=== PATIENT | female | born 1935 | race Native Hawaiian/Other Pacific Islander ===

== ENCOUNTER 2016-08-23 13:15 | Outpatient (CLI) | payer MEDICARE, MEDICAID | END 2016-08-23 13:16 | disposition home or self-care (01) | DX: N18.3 Chronic kidney disease, stage 3 (moderate) (principal); E11.9 Type 2 diabetes mellitus without complications ==

== ENCOUNTER 2019-05-04 12:19 | Outpatient (CLI) | payer MEDICARE, MEDICAID ==
[2019-05-04 19:00] LABS: CALCIUM 9.8 mg/dL (8.5-10.3)
[2019-05-04 19:10] LABS: HEMOGLOBIN A1C 0.66 g/dL; HEMOGLOBIN A1C % 6.5 % (4.6-6.2)
== END 2019-05-04 23:59 | disposition home or self-care (01) ==
LOC: LAB.N 12:19
PROVIDERS: ATTEND Nurse Practitioner Gerontology
DX: E11.22 Type 2 diabetes mellitus with diabetic chronic kidney disease (principal)
CPT/HCPCS: 36415; 80048; 83036

== ENCOUNTER 2019-08-17 12:59 | Emergency (ER) | payer MEDICARE, MEDICAID ==
[2019-08-17] MEDS ORDERED: ONDANSETRON ODT 4 MG TABLET TL STA (13:26)
--- NOTE | 2019-08-17 13:29 | ED Physician Documentation ---
PD HPI ABD PAIN - Stated complaint Stated Complaint: PARSON,ABD PX,VOMITING - Chief complaint Chief Complaint: Abd Pain - History obtained from History obtained from: Patient - History of Present Illness Timing - onset: Other (84-year-old woman with diabetes returned from [facility] via [facility] where she was there only for 2 hours about 2 weeks ago. She is had 6 days of illness marked by vomiting, abdominal pain, cough, no runny nose or sore throat. She thinks she has had fevers. Cough is minimally productive. She denies diarrhea.) Review of Systems Ten Systems: 10 systems reviewed and negative Constitutional: reports: Fever, Chills, Fatigue Nose: denies: Rhinorrhea / runny nose Throat: denies: Sore throat Cardiac: denies: Chest pain / pressure, Palpitations Respiratory: reports: Cough. denies: Dyspnea GI: reports: Abdominal Pain, Nausea, Vomiting. denies: Diarrhea PD PAST MEDICAL HISTORY - Past Medical History Cardiovascular: Hypertension Respiratory: None Endocrine/Autoimmune: Type 2 diabetes GI: None : None HEENT: None Psych: None Musculoskeletal: None Derm: None - Past Surgical History Past Surgical History: No Ortho: Carpal Tunnel surgery - Present Medications Home Medications: Ambulatory Orders Medication Instructions Recorded Confirmed Cyclobenzaprine [Flexeril] 10 mg PO TID PRN 12/29/12 01/28/14 Metformin HCl 500 mg PO DAILY 12/29/12 01/28/14 Nitrofurantoin [Macrobid] 100 mg PO BID #14 capsule 12/29/12 01/28/14 Tramadol HCl/Acetaminophen 1 - 2 each PO Q6-8H PRN #30 tablet 12/29/12 01/28/14 [Ultracet Tablet] Valsartan [Diovan] 80 mg PO DAILY 12/29/12 01/28/14 amLODIPine [Norvasc] 10 mg PO DAILY 12/29/12 01/28/14 atenoloL [Tenormin] 50 mg PO DAILY 12/29/12 01/28/14 Benzonatate [Tessalon Perle] 100 - 200 mg PO TID PRN #14 capsule 08/17/19 Ondansetron Odt [Zofran] 4 mg TL Q6H PRN #10 tablet 08/17/19 - Allergies Allergies/Adverse Reactions: Allergies Allergy/AdvReac Type Severity Reaction Status Date / Time No Known Drug Allergies Allergy Verified 08/17/19 13:06 - Social History Does the pt smoke?: No Smoking Status: Never smoker Does the pt drink ETOH?: Yes PD ED PE NORMAL - Vitals Vital signs reviewed: Yes - General General: Alert and oriented X 3, No acute distress - HEENT HEENT: PERRL, Pharynx benign - Neck Neck: Supple, no meningeal sign, No bony TTP - Cardiac Cardiac: RRR, No murmur - Respiratory Respiratory: No respiratory distress, Clear bilaterally - Abdomen Abdomen: Normal bowel sounds, Soft, Non tender - Back Back: No CVA TTP, No spinal TTP - Derm Derm: Normal color, Warm and dry - Extremities Extremities: No edema, No calf tenderness / cord - Neuro Neuro: Alert and oriented X 3, Normal speech Results - Vitals Vitals: Vital Signs - 24 hr 08/17/19 13:06 Temperature 36.5 C Heart Rate 58 L Respiratory 14 Rate Blood Pressure 135/85 H O2 Saturation 100 Oxygen O2 Source Room air - Labs Labs: Laboratory Tests 08/17/19 08/17/19 08/17/19 13:15 13:49 13:49 WBC 4.6 L RBC 4.53 Hgb 13.8 Hct 40.1 MCV 88.5 MCH 30.5 MCHC 34.4 RDW 11.1 L Plt Count 194 MPV 8.9 Neut # (Auto) 3.0 Lymph # (Auto) 1.1 L [place] # (Auto) 0.3 Eos # (Auto) 0.1 Baso # (Auto) 0.0 Absolute Nucleated RBC 0.00 Nucleated RBC % 0.0 Sodium 126 L Potassium 4.7 Chloride 90 L Carbon Dioxide 21 Anion Gap 15.0 H BUN 52 H Creatinine 1.5 H Estimated GFR (MDRD) 33 L Glucose 151 H Calcium 9.9 Total Bilirubin 1.4 H AST 23 ALT 14 Alkaline Phosphatase 45 Total Protein 8.6 H Albumin 4.6 Globulin 4.0 Albumin/Globulin Ratio 1.1 Lipase 99 H Influenza A (Rapid) Negative Influenza B (Rapid) Negative - Rads (name of study) 2v chest Radiology: EMP read contemporaneously (normal) PD MEDICAL DECISION MAKING - ED course ED course: 84-year-old woman presents with what seems like a viral syndrome, feeling better after meds. Labs show dehydration for which she was given 1 L of IV fluids. Departure - Departure Disposition: 01 Home, Self Care Clinical Impression: Viral syndrome, Cough Condition: Good Record reviewed to determine appropriate education?: Yes Instructions: ED Viral Syndrome Prescriptions: Benzonatate [Tessalon Perle] 100 - 200 mg PO TID PRN #14 capsule PRN Reason: Cough Ondansetron Odt [Zofran] 4 mg TL Q6H PRN #10 tablet PRN Reason: Nausea / Vomiting Comments: Your blood work shows evidence of moderate dehydration for which she received IV fluids. Drink plenty of fluids at home. Return for new or worsening symptoms. Follow-up with your doctor in 2 to 3 days for recheck., your chest x-ray is normal.
[2019-08-17 13:57] LABS: BASOPHILS % (AUTO) 0.7 %; EOSINOPHILS # (AUTO) 0.1 10^3/uL (0.0-0.7); EOSINOPHILS % (AUTO) 1.5 %; HGB - HEMOGLOBIN 13.8 g/dL (12.0-16.0); LYMPHOCYTES # (AUTO) 1.1 10^3/uL (1.5-3.5); LYMPHOCYTES % (AUTO) 24.5 %; MEAN CORPUSCULAR HEMOGLOBIN 30.5 pg (27.0-31.0); MEAN CORPUSCULAR HGB CONC 34.4 g/dL (32.0-36.0); MEAN CORPUSCULAR VOLUME 88.5 fL (81.0-99.0); MEAN PLATELET VOLUME 8.9 fL (7.9-10.8); MONOCYTES # (AUTO) 0.3 10^3/uL (0.0-1.0); NEUTROPHILS % (AUTO) 65.9 %; PLT - PLATELET COUNT 194 10^3/uL (130-450); RED BLOOD COUNT 4.53 10^6/uL (4.20-5.40); RED CELL DISTRIBUTION WIDTH 11.1 % (12.0-15.0); WHITE BLOOD COUNT 4.6 x10^3/uL (4.8-10.8)
[2019-08-17 14:11] LABS: ALBUMIN 4.6 g/dL (3.2-5.5); ALBUMIN/GLOBULIN RATIO 1.1 (1.0-2.2); BILIRUBIN,TOTAL 1.4 mg/dL (0.2-1.0); CALCIUM 9.9 mg/dL (8.5-10.3); CREATININE 1.5 mg/dL (0.4-1.0); TOTAL PROTEIN 8.6 g/dL (6.7-8.2)
[2019-08-17] MEDS ORDERED: SODIUM CHLORIDE 0.9% 1,000 ML IV ONE (14:21)
--- NOTE | 2019-08-17 15:27 | XRAY Report ---
Reason: cough Procedure Date: 08/17/2019 Accession Number: [id number] / [id number] Procedure: XR - Chest 2 View X-Ray CPT Code: 93062 Final Report FULL RESULT: EXAM: CHEST RADIOGRAPHY EXAM DATE: 08/17/2019 02:01 PM. CLINICAL HISTORY: Cough, congestion, body aches, headache for about a week. COMPARISON: 04/11/2011 2:33 PM. TECHNIQUE: 2 views. FINDINGS: Lungs/Pleura: No focal opacities evident. No pleural effusion. No pneumothorax. Normal volumes. Mediastinum: Heart and mediastinal contours are unremarkable. Other: No bony abnormality identified. IMPRESSION: Normal 2-view chest radiography. RADIA
[2019-08-17 15:52] VITALS: BP 177/58
== END 2019-08-17 15:55 | disposition home or self-care (01) ==
LOC: ED 12:59
DX: B34.9 Viral infection, unspecified (principal); E86.0 Dehydration; I10 Essential (primary) hypertension; E11.9 Type 2 diabetes mellitus without complications; Z79.84 Long term (current) use of oral hypoglycemic drugs
CPT/HCPCS: 36415; 71046; 80053; 83690; 85025; 87275; 87276; 96360; 99284; 99285; Q0162

== ENCOUNTER 2020-02-19 08:00 | Outpatient (CLI) | payer MEDICARE, MEDICAID ==
[2020-02-19 18:57] LABS: CALCIUM 9.6 mg/dL (8.5-10.3); CREATININE 1.2 mg/dL (0.4-1.0)
[2020-02-19 18:58] LABS: CREATININE,URINE 66.4 mg/dL; MICROALBUM/CREATININE RATIO,UR 144.6 ug/mg (<30.0); MICROALBUMIN,URINE 9.6 mg/dL (0-300.0)
[2020-02-19 19:18] LABS: HB2 TOTAL 12.2 g/dL; HEMOGLOBIN A1C 0.59 g/dL; HEMOGLOBIN A1C % 6.6 % (4.6-6.2)
== END 2020-02-19 23:59 | disposition home or self-care (01) ==
LOC: LAB.WCP 08:00
PROVIDERS: ATTEND Family Medicine
DX: E11.22 Type 2 diabetes mellitus with diabetic chronic kidney disease (principal); N18.9 Chronic kidney disease, unspecified
CPT/HCPCS: 36415; 80048; 82043; 82570; 83036

== ENCOUNTER 2020-06-10 08:00 | Outpatient (CLI) | payer MEDICARE, MEDICAID | END 2020-06-10 23:59 | disposition home or self-care (01) | LOC: LAB.R 08:00 | PROVIDERS: ATTEND Nurse Practitioner Family | DX: R30.0 Dysuria (principal) | CPT/HCPCS: 81002; 87086; 87181 ==

== ENCOUNTER 2020-08-17 08:00 | Outpatient (CLI) | payer MEDICARE, MEDICAID ==
[2020-08-17 18:16] LABS: CALCIUM 9.5 mg/dL (8.5-10.3); CREATININE 1.6 mg/dL (0.4-1.0)
[2020-08-17 20:57] LABS: HEMOGLOBIN A1c% 6.6 % (4.27-6.07)
== END 2020-08-17 23:59 | disposition home or self-care (01) ==
LOC: LAB.WCP 08:00
PROVIDERS: ATTEND Nurse Practitioner Family
DX: E11.22 Type 2 diabetes mellitus with diabetic chronic kidney disease (principal)
CPT/HCPCS: 36415; 80048; 83036

== ENCOUNTER 2020-08-17 15:34 | Outpatient (CLI) | payer MEDICARE, MEDICAID ==
--- NOTE | 2020-08-17 15:50 | XRAY Report ---
PROCEDURE: Hip 1 View LT INDICATIONS: LEFT HIP PAIN TECHNIQUE: 2 views of the hip were acquired. COMPARISON: None FINDINGS: Bones: No fractures or dislocations. No suspicious bony lesions. The visualized pelvic ring appear s intact. Mild hip joint space narrowing and periarticular osteophyte formation. Soft tissues: No suspicious soft tissue calcifications or masses. IMPRESSION: Bilateral hip osteoarthritis. No acute fracture. No osseous lesion. If symptoms and/or clinical suspi cion for pathology continue, further assessment with repeat plain films, or advanced imaging (e.g., C T, MRI, or bone scan) is recommended for further assessment. Reviewed by: Surjit Pagan MD on 08/17/2020 3:49 PM PST Approved by: Surjit Pagan MD on 08/17/2020 3:49 PM PST Station ID: [id number]
== END 2020-08-17 23:59 | disposition home or self-care (01) ==
LOC: DI.WCP 15:34
PROVIDERS: ATTEND Nurse Practitioner Family
DX: M16.0 Bilateral primary osteoarthritis of hip (principal)

== ENCOUNTER 2020-10-12 08:00 | Outpatient (CLI) | payer MEDICARE, MEDICAID ==
[2020-10-12 18:42] LABS: CALCIUM 9.8 mg/dL (8.5-10.3); CREATININE 1.5 mg/dL (0.4-1.0); POTASSIUM 4.5 mmol/L (3.5-5.0)
== END 2020-10-12 23:59 | disposition home or self-care (01) ==
LOC: LAB.N 08:00
PROVIDERS: ATTEND Nurse Practitioner Family
DX: E87.1 Hypo-osmolality and hyponatremia (principal)
CPT/HCPCS: 36415; 80048; 83930; 83935; 84300

== ENCOUNTER 2020-12-15 14:10 | Outpatient (CLI) | payer MEDICARE, MEDICAID | END 2020-12-15 14:11 | disposition critical access hospital (66) | LOC: EMS 14:10 | DX: R51.9 Headache, unspecified (principal); R42 Dizziness and giddiness | CPT/HCPCS: A0425; A0429 ==

== ENCOUNTER 2020-12-15 14:34 | Emergency (ER) | payer MEDICARE, MEDICAID ==
[2020-12-15 15:17] LABS: BASOPHILS # (AUTO) 0.1 10^3/uL (0.0-0.1); BASOPHILS % (AUTO) 1.6 %; EOSINOPHILS # (AUTO) 0.4 10^3/uL (0.0-0.7); EOSINOPHILS % (AUTO) 6.2 %; HCT - HEMATOCRIT 40.6 % (37.0-47.0); HGB - HEMOGLOBIN 13.7 g/dL (12.0-16.0); LYMPHOCYTES % (AUTO) 31.9 %; MEAN CORPUSCULAR HEMOGLOBIN 30.6 pg (27.0-31.0); MEAN CORPUSCULAR HGB CONC 33.7 g/dL (32.0-36.0); MEAN CORPUSCULAR VOLUME 90.8 fL (81.0-99.0); MEAN PLATELET VOLUME 9.3 fL (7.9-10.8); MONOCYTES # (AUTO) 0.6 10^3/uL (0.0-1.0); MONOCYTES % (AUTO) 8.9 %; NEUTROPHILS # (AUTO) 3.2 10^3/uL (1.5-6.6); NEUTROPHILS % (AUTO) 51.2 %; PLT - PLATELET COUNT 196 10^3/uL (130-450); RED BLOOD COUNT 4.47 10^6/uL (4.20-5.40); RED CELL DISTRIBUTION WIDTH 12.1 % (12.0-15.0); WHITE BLOOD COUNT 6.3 x10^3/uL (4.8-10.8)
--- NOTE | 2020-12-15 15:21 | ED Physician Documentation ---
History of Present Illness - Stated complaint Stated Complaint: DIZZINESS - Chief complaint Chief Complaint: Neuro - Additonal information Additional information: 85-year-old female comes to the emergency department on the advice of a walk-in clinic provider for evaluation of hypertension, reported headache for 3 days as well as a sensation that she is not walking normally. She does have a history of hypertension and diabetes. The patient denies any falls or trauma. She is not anticoagulated. no hx of MO or CVA previously. denies chest pain or SOA. Patient denies that she feels dizzy when turning her head or laying supine. She feels that when she exerts herself she feels off balance. History is somewhat difficult to obtain given advanced age as well as [place] as a second language though she participates fully in the exam and answers questions appropriately. Review of Systems Constitutional: reports: Reviewed and negative Eyes: reports: Reviewed and negative Ears: reports: Reviewed and negative Nose: reports: Reviewed and negative Throat: reports: Reviewed and negative Cardiac: reports: Reviewed and negative Respiratory: reports: Reviewed and negative GI: reports: Reviewed and negative : reports: Reviewed and negative Skin: denies: Rash, Lesions Musculoskeletal: reports: Reviewed and negative Neurologic: reports: Headache, Other (?ataxia). denies: Generalized weakness, Focal weakness, Numbness, Difficulty speaking, Near syncope, Seizure, Confused, LOC PD PAST MEDICAL HISTORY - Past Medical History Cardiovascular: Hypertension Respiratory: None Neuro: None Endocrine/Autoimmune: Type 2 diabetes GI: None [facility]: None : None HEENT: None Psych: None Musculoskeletal: None Derm: None - Past Surgical History Past Surgical History: No Ortho: Carpal Tunnel surgery - Present Medications Home Medications: Ambulatory Orders Medication Instructions Recorded Confirmed Metformin HCl 500 mg PO BID 12/29/12 12/15/20 amLODIPine [Norvasc] 10 mg PO DAILY 12/29/12 12/15/20 atenoloL [Tenormin] 100 mg PO DAILY 12/29/12 12/15/20 Losartan Potassium [Cozaar] 100 mg PO DAILY 12/15/20 12/15/20 Meloxicam [Mobic] 15 mg PO DAILY 12/15/20 12/15/20 Pantoprazole [Protonix] 40 mg PO DAILY 12/15/20 12/15/20 methocarbamoL [Methocarbamol] 500 mg PO TID PRN 12/15/20 12/15/20 - Allergies Allergies/Adverse Reactions: Allergies Allergy/AdvReac Type Severity Reaction Status Date / Time No Known Drug Allergies Allergy Verified 12/15/20 14:42 - Social History Does the pt smoke?: No Smoking Status: Never smoker Does the pt drink ETOH?: Yes Does the pt have substance abuse?: No - Immunizations Immunizations are current?: Yes - POLST Patient has POLST: No PD ED PE EXPANDED - General General: Alert, No acute distress - HEENT HEENT: PERRL, EOMI, Ears normal, Moist mucous membranes - Neck Neck: Supple w/out meningeal sx, No tenderness. No: Adenopathy - Cardiac Cardiac: Regular Rate, Radial strong equal, Cap refill < 2 sec, Prolonged cap refill. No: Murmur Present - Respiratory Respiratory: Clear to ausultation nneka. No: Distress, Labored - Abdomen Abdomen: Normal Bowel sounds. No: Tender to palpation - Extremities Extremities: Normal. No: Deformity, Tenderness - Neuro Neuro: Alert and Oriented X 3, CNII-XII intact, Normal gait, Normal finger nose, Normal speech, Other (normal heel toe, finger nose. Able to walk the full length of the hallway in a straight line withotu assistance). No: Nystagmus - GCS Eye Opening: Spontaneous Motor: Obeys Commands Verbal: Oriented Total: 15 Results - Vitals Vitals: Vital Signs - 24 hr 12/15/20 12/15/20 12/15/20 14:39 15:44 17:00 Temperature 37.0 C 36.6 C Heart Rate 64 62 62 Heart Rate [ Sitting] Heart Rate [ Standing] Heart Rate [ Supine] Respiratory 14 16 20 Rate Blood Pressure 177/66 H 116/61 153/62 H Blood Pressure [Sitting] Blood Pressure [Standing] Blood Pressure [Supine] O2 Saturation 100 98 100 12/15/20 12/15/20 12/15/20 18:32 19:00 21:00 Temperature 36.7 C 36.6 C Heart Rate 56 L 67 Heart Rate [ 62 Sitting] Heart Rate [ 68 Standing] Heart Rate [ 61 Supine] Respiratory 16 14 Rate Blood Pressure 121/56 L 148/64 H Blood Pressure 127/66 [Sitting] Blood Pressure 139/67 H [Standing] Blood Pressure 124/52 L [Supine] O2 Saturation 100 100 Oxygen O2 Source Room air - EKG (time done) 1505 Rate: Rate (enter#) (65) Rhythm: NSR Deport: Normal Intervals: Normal NE. No: Prolonged QT QRS: Poor R wave progression Ischemia: Normal ST segments Compare to prior EKG: Old EKG unavailable Computer interpretation: Agree with computer - Labs Labs: Laboratory Tests 12/15/20 12/15/20 12/15/20 15:07 15:07 15:07 WBC 6.3 RBC 4.47 Hgb 13.7 Hct 40.6 MCV 90.8 MCH 30.6 MCHC 33.7 RDW 12.1 Plt Count 196 MPV 9.3 Neut # (Auto) 3.2 Lymph # (Auto) 2.0 [place] # (Auto) 0.6 Eos # (Auto) 0.4 Baso # (Auto) 0.1 Absolute Nucleated RBC 0.00 Nucleated RBC % 0.0 PT 11.4 INR 1.0 Sodium 133 L Potassium 4.5 Chloride 99 L Carbon Dioxide 20 L Anion Gap 14.0 H BUN 31 H Creatinine 1.5 H Estimated GFR (MDRD) 33 L Glucose 112 H Calcium 9.6 Total Bilirubin 0.7 AST 29 ALT 21 Alkaline Phosphatase 68 Troponin I High Sens Total Protein 8.9 H Albumin 4.7 Globulin 4.2 Albumin/Globulin Ratio 1.1 Lipase 62 H Nasal Adenovirus (PCR) Nasal B. parapertussis DNA (PCR) Nasal Coronavir 229E PCR Nasal Coronavir HKU1 PCR Nasal Coronavir NL63 PCR Nasal Coronavir OC43 PCR Nasal Enterovir/Rhinovir PCR Nasal Influenza B PCR Nasal Influenza A PCR Nasal Parainfluen 1 PCR Nasal Parainfluen 2 PCR Nasal Parainfluen 3 PCR Nasal Parainfluen 4 PCR Nasal RSV (PCR) Nasal B.pertussis DNA PCR Nasal C.pneumoniae (PCR) Quinn Human Metapneumo PCR Nasal M.pneumoniae (PCR) Nasal SARS-CoV-2 (PCR) 12/15/20 12/15/20 15:07 19:21 WBC RBC Hgb Hct MCV MCH MCHC RDW Plt Count MPV Neut # (Auto) Lymph # (Auto) [place] # (Auto) Eos # (Auto) Baso # (Auto) Absolute Nucleated RBC Nucleated RBC % PT INR Sodium Potassium Chloride Carbon Dioxide Anion Gap BUN Creatinine Estimated GFR (MDRD) Glucose Calcium Total Bilirubin AST ALT Alkaline Phosphatase Troponin I High Sens 4.3 Total Protein Albumin Globulin Albumin/Globulin Ratio Lipase Nasal Adenovirus (PCR) NOT DETECTED Nasal B. parapertussis DNA (PCR) NOT DETECTED Nasal Coronavir 229E PCR NOT DETECTED Nasal Coronavir HKU1 PCR NOT DETECTED Nasal Coronavir NL63 PCR NOT DETECTED Nasal Coronavir OC43 PCR NOT DETECTED Nasal Enterovir/Rhinovir PCR NOT DETECTED Nasal Influenza B PCR NOT DETECTED Nasal Influenza A PCR NOT DETECTED Nasal Parainfluen 1 PCR NOT DETECTED Nasal Parainfluen 2 PCR NOT DETECTED Nasal Parainfluen 3 PCR NOT DETECTED Nasal Parainfluen 4 PCR NOT DETECTED Nasal RSV (PCR) NOT DETECTED Nasal B.pertussis DNA PCR NOT DETECTED Nasal C.pneumoniae (PCR) NOT DETECTED Quinn Human Metapneumo PCR NOT DETECTED Nasal M.pneumoniae (PCR) NOT DETECTED Nasal SARS-CoV-2 (PCR) NOT DETECTED - Rads (name of study) CXR Radiology: Final report received (no acute cardiopulmonary abnormality) CT angio head Radiology: Final report received (No intracranial hemorrhage is seen. No significant intracranial abnormality is seen. No intracranial arterial abnormalities are seen. Age-appropriate brain parenchymal volume loss.) CT angio neck Radiology: Final report received (No hemodynamically significant stenosis can be seen within the arteries of the neck. 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 On exam her NIH SS is 0. I was unable to elicit any ataxia or abnormal cerebellar findings on my exam. She was noted to be moderately hypertensive. Screening labs did not show any worrisome abnormality sparing baseline renal insufficiency. Patient however reports that she feels off balance when walking. I was unable to elicit any vertiginous symptoms with position changes. Her orthostatics are unremarkable. Abs do revealEKG is nonischemic. High-sensitivity troponin is negative. Chest x-ray without acute focal abnormalities. A baseline but unchanged chronic kidney disease. Patient was given 1 L of crystalloid following her contrast scan. 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 325 mg of asa ordered 1830: Unfortunately patient will require further evaluation of her dizziness and sensation of ataxia as stroke cannot be ruled out. She will need an MRI and echocardiogram and those services are not available at [facility] Until Saturday upcoming. Therefore we will attempt to transfer for further evaluation of her symptoms peer. 2034: Spoken with neurologist Dr. Foy on-call with [facility]. We discussed patient's case exam findings as well as CT angiogram results. She agrees that the patient should be accepted for work-up of possible strokelike symptoms as well as further evaluation of left proximal subclavian artery dissection. Awaiting return phone call from the hospitalist. 2114: Dr. Braga hospitalist at [facility] as accepted pt in transfer. Pt will be sent via [facility]. Appropriate [facility] paperwork completed. I have spoken at length with the patient and her son regarding the needs necessitating transfer. All questions answered. Departure - Departure Disposition: 02 Transfer Acute Care Hosp Clinical Impression: Ataxia, Stroke-like symptoms, Dissection of left subclavian artery CKD (chronic kidney disease) Qualifiers: Chronic kidney disease stage: unspecified stage Qualified Code(s): N18.9 - Chronic kidney disease, unspecified Hypertension Qualifiers: Hypertension type: unspecified Qualified Code(s): I10 - Essential (primary) hypertension Condition: Serious Discharge Date/Time: 12/15/20 21:53
[2020-12-15 15:25] LABS: PT - PROTHROMBIN TIME 11.4 secs (9.9-12.6)
[2020-12-15 15:33] LABS: ALBUMIN 4.7 g/dL (3.2-5.5); ALBUMIN/GLOBULIN RATIO 1.1 (1.0-2.2); BILIRUBIN,TOTAL 0.7 mg/dL (0.2-1.0); CALCIUM 9.6 mg/dL (8.5-10.3); CREATININE 1.5 mg/dL (0.4-1.0); POTASSIUM 4.5 mmol/L (3.5-5.0); TOTAL PROTEIN 8.9 g/dL (6.7-8.2)
--- NOTE | 2020-12-15 16:06 | XRAY Report ---
PROCEDURE: Chest 1 View X-Ray INDICATIONS: Chest Pain TECHNIQUE: One view of the chest was acquired. COMPARISON: 08/17/2019 FINDINGS: Surgical changes and devices: None. Lungs and pleura: No pleural effusions or pneumothorax. Atelectasis in the lung bases. Mediastinum: Mediastinal contours appear normal. Heart size is normal. Bones and chest wall: No suspicious bony lesions. Overlying soft tissues appear unremarkable. IMPRESSION: No acute cardiopulmonary disease process. Reviewed by: Elysia Verma MD, PhD on 12/15/2020 4:05 PM PDT Approved by: Elysia Verma MD, PhD on 12/15/2020 4:05 PM PDT Station ID: [id number]
[2020-12-15] MEDS ORDERED: SODIUM CHLORIDE 0.9% 1,000 ML IV STA (16:36)
[2020-12-15] MEDS ORDERED: IOVERSOL 320 100 ML VIAL IVP ONE ×2 (16:52→18:50)
--- NOTE | 2020-12-15 17:22 | CT Report ---
PROCEDURE: ANGIO HEAD W/WO INDICATIONS: L sided facial droop CONTRAST: IV CONTRAST: Optiray 320 ml: 80 PO CONTRAST: *NO PO CONTRAST TECHNIQUE: Precontrast 4.5 mm thick angled axial sections acquired from the foramen magnum to the vertex. Afte r the administration of intravenous contrast, 1 mm thick sections acquired through the [place] of Will is. Postcontrast 4.5 mm thick sections then re-acquired from the foramen magnum to the vertex. 3-di mensional qmtqdro-qjsusmmrp-urmdwyacpo (MIP) and/or volume rendering reformats were acquired of the c entral intracranial vasculature. For radiation dose reduction, the following was used: automated ex posure control, adjustment of mA and/or kV according to patient size. COMPARISON: Correlation is made with the accompanying neck CT angiogram, 12/15/2020. FINDINGS: Image quality: There is streak artifact seen through the skull base. Anterior circulation: Intracranial internal carotid arteries are normal in size and flow. The flow within the paired anterior cerebral arteries is normal and symmetric. The flow within the middle cer ebral arteries is normal and symmetric. The anterior communicating artery is seen. No aneurysms are seen. Posterior circulation: Visualized portions of the vertebral arteries demonstrate normal caliber, and join to form a normal appearing basilar artery. Flow within the posterior cerebral arteries is norm al and symmetric. No aneurysms are seen. CSF spaces: Ventricles are normal in size and shape. Basal cisterns are patent. No extra-axial flu id collections. Brain: No midline shift. No intracranial bleeds or masses. Akins-white matter interface appears int act. Age-appropriate brain parenchymal volume loss and chronic small vessel ischemic change can be s een. Skull and face: Calvarium and facial bones appear intact, without suspicious lesions. Sinuses: Visualized sinuses and mastoids are clear. IMPRESSION: No intracranial hemorrhage is seen. No significant intracranial abnormality is seen. No significant intracranial arterial abnormalities are seen. Age-appropriate brain parenchymal volume loss and chronic small vessel ischemic change can be seen. Reviewed by: Vj Shearer MD on 12/15/2020 4:21 PM AKMARÍA Approved by: Vj Shearer MD on 12/15/2020 4:21 PM AKDT Station ID: [id number]
--- NOTE | 2020-12-15 17:26 | CT Report ---
PROCEDURE: ANGIO NECK W INDICATIONS: L sided facial droop, L neck pain CONTRAST: IV CONTRAST: Optiray 320 ml: 80 PO CONTRAST: *NO PO CONTRAST TECHNIQUE: After the administration of intravenous contrast, 1.5 mm axial sections acquired from the aortic arch to the [place] of [place]. Coronal 3-D maximum intensity projection (MIP) and/or volume rendering ref ormats were then performed. For radiation dose reduction, the following was used: automated exposur e control, adjustment of mA and/or kV according to patient size. COMPARISON: Correlation is made with the accompanying head CT angiogram, 12/15/2020. FINDINGS: Image quality: Excellent. Carotid system: The great vessels demonstrate a conventional anatomy as they arise from the aortic a rch. A small dissection flap can be seen involving the left proximal subclavian artery, as on series 2 image 59 and on series 5 image 108. This dissection flap does not appear to be flow-limiting. Relat ively prominent atherosclerotic calcification can be seen involving the aortic arch and the proximal great vessels. The origins of the common carotid arteries appear patent. The common carotid arteries demonstrate normal calibers and courses. The bifurcation regions demonstrate mild atherosclerotic c alcification and irregularity, without a hemodynamically significant stenosis. The more distal manager internet al carotid arteries demonstrate normal caliber and course. Posterior circulation: The origins of the vertebral arteries appear patent. The more superior porti ons of the vertebral arteries demonstrate normal course and caliber. They join to form a normal appe aring basilar artery. Soft tissues: Visualized neck soft tissues demonstrate no suspicious abnormalities. The thyroid is normal in size and there are no incidental findings. Bones: No suspicious bony lesions. Visualized cervical spine appears normally aligned. Mild to mo derate cervical spine degenerative change can be seen. IMPRESSION: No hemodynamically significant stenosis can be seen within the arteries of the neck. There is made of a small dissection flap seen involving the left proximal subclavian artery. The estimate of stenosis included in the report of the imaging study was calculated using the NASCET method Reviewed by: Vj Shearer MD on 12/15/2020 4:25 PM AKDT Approved by: Vj Shearer MD on 12/15/2020 4:25 PM AKDT Station ID: [id number]
[2020-12-15 20:27] LABS: B. PARAPERTUSSIS- RESP PCR PAN NOT DETECTED; B. PERTUSSIS- RESP PCR PANEL NOT DETECTED; C. PNEUMONIAE- RESP PCR PANEL NOT DETECTED; CORONAVIRUS 229E-RESP PCR NOT DETECTED; CORONAVIRUS HKU1-RESP PCR NOT DETECTED; CORONAVIRUS NL63-RESP PCR NOT DETECTED; CORONAVIRUS OC43-RESP PCR NOT DETECTED; HUMAN METAPNEUMOVIRUS NOT DETECTED; INFLUENZA A- RESP PCR PANEL NOT DETECTED; INFLUENZA B - RESP PCR PANEL NOT DETECTED; M. PNEUMONIAE- RESP PCR PANEL NOT DETECTED; PARAINFLUENZA VIRUS 1 NOT DETECTED; PARAINFLUENZA VIRUS 2 NOT DETECTED; PARAINFLUENZA VIRUS 3 NOT DETECTED; PARAINFLUENZA VIRUS 4 NOT DETECTED; RHINOVIRUS/ENTEROVIRUS NOT DETECTED; RSV- RESP PCR PANEL NOT DETECTED; SARS-CoV-2 -RESP PCR PANEL NOT DETECTED
[2020-12-15] MEDS ORDERED: ASPIRIN 325 MG TABLET PO STA (20:34)
[2020-12-15 21:08] VITALS: BP 148/64
== END 2020-12-15 21:53 | disposition short-term general hospital (02) ==
LOC: EDUNIT# → SUPCPDRO 14:34 → ED 14:34
DX: I77.79 Dissection of other specified artery (principal); R27.0 Ataxia, unspecified; R51.9 Headache, unspecified; I12.9 Hypertensive chronic kidney disease with stage 1 through stage 4 chronic kidney disease, or unspecified chronic kidney disease; E11.22 Type 2 diabetes mellitus with diabetic chronic kidney disease; N18.9 Chronic kidney disease, unspecified; Z79.84 Long term (current) use of oral hypoglycemic drugs; Z20.822 Contact with and (suspected) exposure to COVID-19
CPT/HCPCS: 36415; 70496; 70498; 71045; 80053; 83690; 84484; 85025; 85610; 87631; 93005; 99284; 99285; A9270; Q9967; 0202U

== ENCOUNTER 2020-12-15 21:55 | Outpatient (CLI) | payer MEDICARE, MEDICAID | END 2020-12-15 21:56 | disposition short-term general hospital (02) | LOC: EMS 21:55 | PROVIDERS: ATTEND Registered Nurse | DX: Z76.89 Persons encountering health services in other specified circumstances (principal); R29.810 Facial weakness | CPT/HCPCS: A0425; A0428 ==

== ENCOUNTER 2020-12-30 08:00 | Outpatient (CLI) | payer MEDICARE, MEDICAID ==
[2020-12-30 11:36] LABS: BASOPHILS # (AUTO) 0.1 10^3/uL (0.0-0.1); BASOPHILS % (AUTO) 1.6 %; EOSINOPHILS # (AUTO) 0.4 10^3/uL (0.0-0.7); EOSINOPHILS % (AUTO) 5.8 %; HCT - HEMATOCRIT 34.6 % (37.0-47.0); HGB - HEMOGLOBIN 11.8 g/dL (12.0-16.0); LYMPHOCYTES # (AUTO) 1.6 10^3/uL (1.5-3.5); LYMPHOCYTES % (AUTO) 23.8 %; MEAN CORPUSCULAR HEMOGLOBIN 30.6 pg (27.0-31.0); MEAN CORPUSCULAR HGB CONC 34.1 g/dL (32.0-36.0); MEAN CORPUSCULAR VOLUME 89.9 fL (81.0-99.0); MONOCYTES # (AUTO) 0.6 10^3/uL (0.0-1.0); MONOCYTES % (AUTO) 8.7 %; NEUTROPHILS # (AUTO) 4.1 10^3/uL (1.5-6.6); PLT - PLATELET COUNT 257 10^3/uL (130-450); RED BLOOD COUNT 3.85 10^6/uL (4.20-5.40); RED CELL DISTRIBUTION WIDTH 11.9 % (12.0-15.0); WHITE BLOOD COUNT 6.9 x10^3/uL (4.8-10.8)
[2020-12-30 12:37] LABS: ALBUMIN 4.5 g/dL (3.2-5.5); ALBUMIN/GLOBULIN RATIO 1.3 (1.0-2.2); BILIRUBIN,TOTAL 0.8 mg/dL (0.2-1.0); CALCIUM 9.5 mg/dL (8.5-10.3); CREATININE 1.4 mg/dL (0.4-1.0); POTASSIUM 4.5 mmol/L (3.5-5.0); TOTAL PROTEIN 8.1 g/dL (6.7-8.2)
== END 2020-12-30 23:59 | disposition home or self-care (01) ==
LOC: LAB.WCP 08:00
PROVIDERS: ATTEND Internal Medicine
DX: R10.13 Epigastric pain (principal)
CPT/HCPCS: 36415; 80053; 82150; 83690; 85025

== ENCOUNTER 2021-04-06 08:00 | Outpatient (CLI) | payer MEDICARE, MEDICAID ==
[2021-04-06 17:49] LABS: BASOPHILS # (AUTO) 0.1 10^3/uL (0.0-0.1); BASOPHILS % (AUTO) 1.9 %; EOSINOPHILS # (AUTO) 0.4 10^3/uL (0.0-0.7); EOSINOPHILS % (AUTO) 7.8 %; HCT - HEMATOCRIT 36.6 % (37.0-47.0); HGB - HEMOGLOBIN 11.9 g/dL (12.0-16.0); LYMPHOCYTES # (AUTO) 2.1 10^3/uL (1.5-3.5); LYMPHOCYTES % (AUTO) 38.8 %; MEAN CORPUSCULAR HGB CONC 32.5 g/dL (32.0-36.0); MEAN CORPUSCULAR VOLUME 95.3 fL (81.0-99.0); MONOCYTES # (AUTO) 0.5 10^3/uL (0.0-1.0); MONOCYTES % (AUTO) 9.7 %; NEUTROPHILS # (AUTO) 2.2 10^3/uL (1.5-6.6); NEUTROPHILS % (AUTO) 41.4 %; PLT - PLATELET COUNT 224 10^3/uL (130-450); RED BLOOD COUNT 3.84 10^6/uL (4.20-5.40); RED CELL DISTRIBUTION WIDTH 12.4 % (12.0-15.0); WHITE BLOOD COUNT 5.3 x10^3/uL (4.8-10.8)
[2021-04-06 17:55] LABS: ABSOLUTE RETICS # AUTO 0.063 10^6/uL (0.020-0.110); RED BLOOD COUNT 3.86 10^6/uL (4.20-5.40); RETICULOCYTE COUNT % (AUTO) 1.64 % (0.5-2.3)
[2021-04-06 18:13] LABS: CREATININE,URINE 40.3 mg/dL; MICROALBUM/CREATININE RATIO,UR 228.3 ug/mg (<30.0); MICROALBUMIN,URINE 9.2 mg/dL (0-300.0)
[2021-04-06 18:18] LABS: ALBUMIN 4.1 g/dL (3.2-5.5); ALBUMIN/GLOBULIN RATIO 1.1 (1.0-2.2); ALKALINE PHOSPHATASE 56 IU/L (42-121); ALT ALANINE AMINOTRANSFERASE 20 IU/L (10-60); AST ASPARTATE AMINOTRANSFERASE 26 IU/L (10-42); BILIRUBIN,TOTAL 0.5 mg/dL (0.2-1.0); BUN - BLOOD UREA NITROGEN 24 mg/dL (6-20); CALCIUM 9.2 mg/dL (8.5-10.3); CARBON DIOXIDE - CO2 25 mmol/L (21-32); CHLORIDE 104 mmol/L (101-111); CHOL/HDL RATIO 4.6 (<4.4); CHOLESTEROL 207 mg/dL; CREATININE 1.6 mg/dL (0.4-1.0); GFR - MDRD 31 (>89); GLUCOSE 134 mg/dL (70-100); HDL CHOLESTEROL 45 mg/dL; LDL CHOLESTEROL,CALCULATED 126 mg/dL; LDL/HDL RATIO 2.8 (<4.4); POTASSIUM 4.3 mmol/L (3.5-5.0); SODIUM 138 mmol/L (135-145); TRIGLYCERIDES 180 mg/dL; VLDL CHOLESTEROL 36 mg/dL
[2021-04-06 18:27] LABS: THYROID STIMULATING HORMONE 1.83 uIU/mL (0.34-5.60)
[2021-04-06 18:35] LABS: FERRITIN 96.3 ng/mL (11.0-306.8)
[2021-04-06 18:59] LABS: % IRON SATURATION 22 % (20-50); IRON 67 ug/dL (28-170); TOTAL IRON BINDING CAPACITY 305 ug/dL (250-450); TRANSFERRIN 218 mg/dL (192-382)
[2021-04-06 20:13] LABS: ESTIMATED AVERAGE GLUCOSE 137 mg/dL (70-100); HEMOGLOBIN A1c% 6.4 % (4.27-6.07)
== END 2021-04-06 23:59 | disposition home or self-care (01) ==
LOC: LAB.WCP 08:00
PROVIDERS: ATTEND Nurse Practitioner
DX: I12.9 Hypertensive chronic kidney disease with stage 1 through stage 4 chronic kidney disease, or unspecified chronic kidney disease (principal); E11.22 Type 2 diabetes mellitus with diabetic chronic kidney disease; N18.32 Chronic kidney disease, stage 3b; E78.5 Hyperlipidemia, unspecified; R53.83 Other fatigue; D64.9 Anemia, unspecified; E87.1 Hypo-osmolality and hyponatremia
CPT/HCPCS: 36415; 80053; 80061; 81599; 82043; 82570; 82607; 82728; 83036; 83540; 83721; 83930; 83935; 84155; 84165; 84300; 84443; 84466; 85025; 85045; 86334

== ENCOUNTER 2021-08-04 08:28 | Emergency (ER) | payer MEDICARE, MEDICAID ==
[2021-08-04 09:07] LABS: BASOPHILS % (AUTO) 0.2 %; EOSINOPHILS % (AUTO) 0.2 %; HCT - HEMATOCRIT 40.1 % (37.0-47.0); HGB - HEMOGLOBIN 13.4 g/dL (12.0-16.0); LYMPHOCYTES # (AUTO) 0.6 10^3/uL (1.5-3.5); LYMPHOCYTES % (AUTO) 12.1 %; MEAN CORPUSCULAR HEMOGLOBIN 30.6 pg (27.0-31.0); MEAN CORPUSCULAR HGB CONC 33.4 g/dL (32.0-36.0); MEAN CORPUSCULAR VOLUME 91.6 fL (81.0-99.0); MEAN PLATELET VOLUME 9.7 fL (7.9-10.8); MONOCYTES # (AUTO) 0.7 10^3/uL (0.0-1.0); MONOCYTES % (AUTO) 13.7 %; NEUTROPHILS # (AUTO) 3.7 10^3/uL (1.5-6.6); NEUTROPHILS % (AUTO) 73.2 %; PLT - PLATELET COUNT 195 10^3/uL (130-450); RED BLOOD COUNT 4.38 10^6/uL (4.20-5.40)
[2021-08-04 09:11] LABS: BILIRUBIN,TOTAL 0.6 mg/dL (0.2-1.0); CREATININE 1.2 mg/dL (0.4-1.0); POTASSIUM 4.6 mmol/L (3.5-5.0); TOTAL PROTEIN 8.2 g/dL (6.7-8.2)
[2021-08-04] MEDS ORDERED: MAG HYDROX/AL HYDROX/SIMETH 30 ML UDC PO STA (10:15)
[2021-08-04] MEDS ORDERED: SUCRALFATE 1 GM/10 ML UDC PO STA (10:15)
[2021-08-04] MEDS ORDERED: SODIUM CHLORIDE 0.9% 1,000 ML IV STA (10:15)
[2021-08-04] MEDS ORDERED: ONDANSETRON 4 MG/2 ML VIAL IVP STA (10:15)
--- NOTE | 2021-08-04 10:21 | ED Physician Documentation ---
History of Present Illness - Stated complaint Stated Complaint: ABD PX - Chief complaint Chief Complaint: Abd Pain - History obtained from History obtained from: Patient - History of Present Illness Pain level max: 5 Pain level now: 3 - Additonal information Additional information: Patient is an 86-year-old female who presents to the emergency department with abdominal pain for the past 3 to 4 days. Epigastric. Worse with eating and drinking. Nothing makes it better. She states she has had similar symptoms in the past but does not recall what she was told about what was causing her symptoms. Has had nausea but no vomiting. Review of Systems Constitutional: denies: Fever Nose: denies: Rhinorrhea / runny nose, Congestion Throat: denies: Sore throat Cardiac: denies: Chest pain / pressure Respiratory: denies: Cough GI: reports: Abdominal Pain (Aching, dull, epigastric), Nausea. 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 : None HEENT: None Psych: None Musculoskeletal: None Derm: None - Past Surgical History Past Surgical History: No Ortho: Carpal Tunnel surgery - Present Medications Home Medications: Ambulatory Orders Medication Instructions Recorded Confirmed Metformin HCl 500 mg PO BID 12/29/12 12/15/20 amLODIPine [Norvasc] 10 mg PO DAILY 12/29/12 12/15/20 atenoloL [Tenormin] 100 mg PO DAILY 12/29/12 12/15/20 Losartan Potassium [Cozaar] 100 mg PO DAILY 12/15/20 12/15/20 Meloxicam [Mobic] 15 mg PO DAILY 12/15/20 12/15/20 Pantoprazole [Protonix] 40 mg PO DAILY 12/15/20 12/15/20 methocarbamoL [Methocarbamol] 500 mg PO TID PRN 12/15/20 12/15/20 Famotidine [Pepcid] 20 mg PO BID #60 tablet 08/04/21 Sucralfate [Carafate] 1 gm PO ACHS #60 tablet 08/04/21 - Allergies Allergies/Adverse Reactions: Allergies Allergy/AdvReac Type Severity Reaction Status Date / Time No Known Drug Allergies Allergy Verified 08/04/21 08:32 - Social History Does the pt smoke?: No Smoking Status: Never smoker Does the pt drink ETOH?: Yes Does the pt have substance abuse?: No - Immunizations Immunizations are current?: Yes - POLST Patient has POLST: No PD ED PE NORMAL - Vitals Vital signs reviewed: Yes - General General: Alert and oriented X 3, No acute distress, Well developed/nourished - HEENT HEENT: Moist mucous membranes, Pharynx benign - Neck Neck: Supple, no meningeal sign - Cardiac Cardiac: RRR - Respiratory Respiratory: No respiratory distress, Clear bilaterally - Abdomen Abdomen: Soft, Non tender, Non distended - Back Back: No CVA TTP, No spinal TTP - Derm Derm: Warm and dry - Extremities Extremities: No edema, No calf tenderness / cord - Neuro Neuro: Alert and oriented X 3 - Psych Psych: Normal mood, Normal affect Results - Vitals Vitals: Vital Signs - 24 hr 08/04/21 08/04/21 08/04/21 08:33 10:37 12:00 Temperature 37.4 C Heart Rate 114 H 83 88 Respiratory 19 18 18 Rate Blood Pressure 140/88 H 146/75 H 164/78 H O2 Saturation 98 100 100 Oxygen O2 Source Room air - Labs Labs: Laboratory Tests 08/04/21 08/04/21 08/04/21 08:53 08:53 11:21 WBC 5.0 RBC 4.38 Hgb 13.4 Hct 40.1 MCV 91.6 MCH 30.6 MCHC 33.4 RDW 12.0 Plt Count 195 MPV 9.7 Neut # (Auto) 3.7 Lymph # (Auto) 0.6 L [place] # (Auto) 0.7 Eos # (Auto) 0.0 Baso # (Auto) 0.0 Absolute Nucleated RBC 0.00 Nucleated RBC % 0.0 Sodium 134 L Potassium 4.6 Chloride 101 Carbon Dioxide 20 L Anion Gap 13.0 BUN 20 Creatinine 1.2 H Estimated GFR (MDRD) 43 L Glucose 172 H Calcium 9.0 Total Bilirubin 0.6 AST 32 ALT 19 Alkaline Phosphatase 48 Total Protein 8.2 Albumin 4.0 Globulin 4.2 Albumin/Globulin Ratio 1.0 Lipase 70 H Urine Color YELLOW Urine Clarity CLEAR Urine pH 6.0 Ur Specific [place] 1.025 Urine Protein >=300 H Urine Glucose (UA) NEGATIVE Urine Ketones NEGATIVE Urine Occult Blood TRACE-INTA Urine Nitrite NEGATIVE Urine Bilirubin NEGATIVE Urine Urobilinogen 0.2 (NORMAL) Ur Leukocyte Esterase TRACE H Urine RBC 0-5 Urine WBC 0-3 Ur Squamous Epith Cells MANY Squamous H Urine Bacteria None Seen Ur Microscopic Review INDICATED Urine Culture Comments NOT INDICATED - Rads (name of study) CT abd.pelvis Radiology: Final report received, EMP read contemporaneously, See rad report PD MEDICAL DECISION MAKING - ED course Complexity details: reviewed results, re-evaluated patient, considered differential, d/w patient ED course: Unclear etiology of the patient's symptoms, but patient did seem to resolve her symptoms with a GI cocktail. Possible gastritis? Eating and drinking without difficulty here. Also has a possible gastroenteritis on CT scan. No evidence of COVID-pneumonia clinically. Patient is very well-appearing, nontoxic. Afebrile. We will trial an H2 marcelle and Carafate for home. Have her follow- up with her doctor for further care. Patient counseled regarding signs and symptoms for which I believe and urgent re-evaluation would be necessary. Patient with good understanding of and agreement to plan and is comfortable going home at this time This document was made in part using voice recognition software. While efforts are made to proofread this document, sound alike and grammatical errors may occur. IMPRESSION: 1. Liquid bowel contents are consistent with gastroenteritis. 2. Suggestion of subtle patchy interstitial infiltrates in the extreme lung bases can be seen in colon 19 pneumonia. Suggest correlation. 3. Small hiatal hernia. 4. Atherosclerosis. Departure - Departure Disposition: Home, Self Care Clinical Impression: Gastritis Qualifiers: Gastritis type: unspecified gastritis Chronicity: acute Gastritis bleeding: without bleeding Qualified Code(s): K29.00 - Acute gastritis without bleeding Condition: Good Instructions: ED Gastritis, ED Abdominal Pain Unkn Cause Male Follow-Up: Finn Romero MD [Primary Care Provider] - Within 1 week Prescriptions: Sucralfate [Carafate] 1 gm PO ACHS #60 tablet Famotidine [Pepcid] 20 mg PO BID #60 tablet Comments: Please follow-up with your doctor for further care. Return if you worsen. Your prescriptions were sent to [facility]. You should follow a bland diet. Your doctor may want to refer you for an endoscopy so they can evaluate the lining of your stomach to see if you are developing an ulcer. Discharge Date/Time: 08/04/21 13:30
[2021-08-04 11:25] LABS: BILIRUBIN,URINE NEGATIVE (NEGATIVE); GLUCOSE, URINE (UA) NEGATIVE (NEGATIVE); KETONES,URINE (UA) NEGATIVE (NEGATIVE); LEUKOCYTE ESTERASE, URINE TRACE (NEGATIVE); NITRITE,URINE NEGATIVE (NEGATIVE); OCCULT BLOOD,URINE TRACE-INTA (NEGATIVE); PROTEIN,URINE >=300 mg/dL (NEGATIVE); UROBILINOGEN,URINE 0.2 (NORMAL) E.U./dL (NORMAL)
[2021-08-04] MEDS ORDERED: iohexoL-300 100 ML VIAL IVP ONE (11:38)
[2021-08-04] MEDS ORDERED: iohexoL-300 100 ML VIAL ONE (11:51)
[2021-08-04 12:03] LABS: CLARITY,URINE CLEAR (CLEAR)
--- NOTE | 2021-08-04 12:03 | CT Report ---
PROCEDURE: Abdomen/Pelvis W INDICATIONS: diffuse abd pain, vomiting CONTRAST: IV CONTRAST: Isovue 300 ml: 100 PO CONTRAST: *NO PO CONTRAST TECHNIQUE: After the administration of intravenous contrast, 5 mm thick sections acquired from the diaphragms to the symphysis. 5 mm thick coronal and sagittal reformats were acquired. For radiation dose reducti on, the following was used: automated exposure control, adjustment of mA and/or kV according to jem ent size. COMPARISON: None. FINDINGS: Image quality: Excellent. ABDOMEN: Lung bases: In the extreme lung bases, there are patchy interstitial infiltrates which may potentiall y indicate Covid 19 pneumonia. Suggest correlation. Heart size is normal. Small hiatal hernia. Solid organs: Liver and spleen are normal in size and enhancement. Gallbladder is quite contracted, within normal limits Biliary system is non dilated. Pancreas enhances normally. No adrenal nodule s. Kidneys demonstrate normal size and enhancement, without hydronephrosis. Peritoneum and bowel: Bowel loops demonstrate normal wall thickness and caliber. Diffuse liquid evelyne l content suggests gastroenteritis. No free fluid or air. Nodes and vessels: No retroperitoneal or mesenteric adenopathy by size criteria. Aorta and inferior vena cava are normal in size. Diffuse atherosclerotic plaque involving the aorta with hard and soft plaque present. No hemodynamically significant stenosis identified. Miscellaneous: No ventral hernias. PELVIS: Genitourinary: Bladder wall thickness is normal. Miscellaneous: No inguinal hernias or adenopathy. Bones: No suspicious bony lesions. No vertebral body compression fractures. IMPRESSION: 1. Liquid bowel contents are consistent with gastroenteritis. 2. Suggestion of subtle patchy interstitial infiltrates in the extreme lung bases can be seen in colo n 19 pneumonia. Suggest correlation. 3. Small hiatal hernia. 4. Atherosclerosis. Reviewed by: Altaf Irby MD on 08/04/2021 12:01 PM PST Approved by: Altaf Irby MD on 08/04/2021 12:01 PM PST Station ID: [id number]
[2021-08-04 12:04] LABS: BACTERIA,URINE None Seen /HPF (None Seen); RBC,URINE 0-5 /HPF (0-5); SQUAMOUS EPITHELIAL CELL,UR MANY Squamous (<= Few); WBC,URINE 0-3 /HPF (0-5)
[2021-08-04 13:00] VITALS: BP 164/78
== END 2021-08-04 13:30 | disposition home or self-care (01) ==
LOC: ED 08:28
DX: K29.00 Acute gastritis without bleeding (principal); I10 Essential (primary) hypertension; E11.9 Type 2 diabetes mellitus without complications
CPT/HCPCS: 36415; 74177; 80053; 81001; 83690; 85025; 96374; 99284; A9270; Q9967; 81003; 87086

== ENCOUNTER 2022-01-03 07:04 | Outpatient (CLI) | payer MEDICARE, MEDICAID ==
[2022-01-03 11:56] LABS: BASOPHILS # (AUTO) 0.1 10^3/uL (0.0-0.1); BASOPHILS % (AUTO) 1.7 %; EOSINOPHILS # (AUTO) 0.5 10^3/uL (0.0-0.7); HCT - HEMATOCRIT 39.8 % (37.0-47.0); HGB - HEMOGLOBIN 13.4 g/dL (12.0-16.0); LYMPHOCYTES # (AUTO) 2.5 10^3/uL (1.5-3.5); MEAN CORPUSCULAR HEMOGLOBIN 30.2 pg (27.0-31.0); MEAN CORPUSCULAR HGB CONC 33.7 g/dL (32.0-36.0); MEAN CORPUSCULAR VOLUME 89.8 fL (81.0-99.0); MEAN PLATELET VOLUME 9.4 fL (7.9-10.8); MONOCYTES # (AUTO) 0.7 10^3/uL (0.0-1.0); MONOCYTES % (AUTO) 12.5 %; NEUTROPHILS # (AUTO) 1.6 10^3/uL (1.5-6.6); NEUTROPHILS % (AUTO) 29.4 %; PLT - PLATELET COUNT 256 10^3/uL (130-450); RED BLOOD COUNT 4.43 10^6/uL (4.20-5.40); RED CELL DISTRIBUTION WIDTH 12.4 % (12.0-15.0); WHITE BLOOD COUNT 5.3 x10^3/uL (4.8-10.8)
[2022-01-03 12:22] LABS: ESTIMATED AVERAGE GLUCOSE 146 mg/dL (70-100); HEMOGLOBIN A1c% 6.7 % (4.27-6.07)
[2022-01-03 12:40] LABS: ALBUMIN 4.7 g/dL (3.2-5.5); ALBUMIN/GLOBULIN RATIO 1.2 (1.0-2.2); ALKALINE PHOSPHATASE 56 IU/L (42-121); ALT ALANINE AMINOTRANSFERASE 24 IU/L (10-60); AST ASPARTATE AMINOTRANSFERASE 29 IU/L (10-42); BILIRUBIN,TOTAL 0.8 mg/dL (0.2-1.0); BUN - BLOOD UREA NITROGEN 23 mg/dL (6-20); CALCIUM 9.5 mg/dL (8.5-10.3); CARBON DIOXIDE - CO2 23 mmol/L (21-32); CHLORIDE 101 mmol/L (101-111); CHOL/HDL RATIO 3.4 (<4.4); CHOLESTEROL 206 mg/dL; CREATININE 1.2 mg/dL (0.4-1.0); GFR - MDRD 43 (>89); GLUCOSE 108 mg/dL (70-100); HDL CHOLESTEROL 61 mg/dL; LDL CHOLESTEROL,CALCULATED 113 mg/dL; LDL/HDL RATIO 1.9 (<4.4); POTASSIUM 3.8 mmol/L (3.5-5.0); SODIUM 134 mmol/L (135-145); TOTAL PROTEIN 8.7 g/dL (6.7-8.2); TRIGLYCERIDES 158 mg/dL; VLDL CHOLESTEROL 32 mg/dL
[2022-01-03 12:48] LABS: THYROID STIMULATING HORMONE 3.16 uIU/mL (0.34-5.60)
[2022-01-03 13:13] LABS: MICROALBUM/CREATININE RATIO,UR 1092.9 ug/mg (<30.0); MICROALBUMIN,URINE 15.3 mg/dL (0-300.0)
== END 2022-01-03 07:05 | disposition home or self-care (01) ==
LOC: LAB.N 07:04
PROVIDERS: ATTEND Internal Medicine
DX: E11.22 Type 2 diabetes mellitus with diabetic chronic kidney disease (principal); E78.5 Hyperlipidemia, unspecified; I10 Essential (primary) hypertension
CPT/HCPCS: 36415; 80053; 80061; 82043; 82570; 83036; 83721; 84443; 85025

== ENCOUNTER 2022-10-14 12:52 | Outpatient (CLI) | payer MEDICARE, MEDICAID | END 2022-10-14 23:59 | disposition critical access hospital (66) | LOC: EMS 12:52 | DX: R50.9 Fever, unspecified (principal); R53.83 Other fatigue | CPT/HCPCS: A0425; A0429 ==

== ENCOUNTER 2022-10-14 13:13 | Emergency (ER) | payer MEDICARE, MEDICAID ==
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
[2022-10-14 13:59] LABS: BILIRUBIN,URINE NEGATIVE (NEGATIVE); GLUCOSE, URINE (UA) NEGATIVE (NEGATIVE); KETONES,URINE (UA) NEGATIVE (NEGATIVE); LEUKOCYTE ESTERASE, URINE MODERATE (NEGATIVE); NITRITE,URINE NEGATIVE (NEGATIVE); OCCULT BLOOD,URINE MODERATE (NEGATIVE); PROTEIN,URINE 100 mg/dL (NEGATIVE); UROBILINOGEN,URINE 0.2 (NORMAL) E.U./dL (NORMAL)
[2022-10-14 14:01] LABS: CLARITY,URINE CLOUDY (CLEAR)
[2022-10-14] MEDS ORDERED: ACETAMINOPHEN 500 MG TABLET PO STA ×2 (14:05→19:39)
[2022-10-14] MEDS ORDERED: KETOROLAC 15 MG/ML VIAL IVP STA (14:05)
[2022-10-14] MEDS ORDERED: SODIUM CHLORIDE 0.9% 1,000 ML IV STA ×3 (14:06→21:07)
--- NOTE | 2022-10-14 14:10 | XRAY Report ---
PROCEDURE: Chest 1 View X-Ray INDICATIONS: fever and weakness TECHNIQUE: One view of the chest was acquired. COMPARISON: 12/15/2020 FINDINGS: Surgical changes and devices: None. Lungs and pleura: An incomplete inspiratory result is noted, with low lung volumes and crowding of t he vascular markings. No focal infiltrates are seen. No large pneumothorax or large pleural effusion can be seen. Mediastinum: The aorta is prominent and tortuous. The cardiac contours are within normal limits. Bones and chest wall: No suspicious bony lesions. Overlying soft tissues appear unremarkable. IMPRESSION: Portable chest within normal limits for age. No focal infiltrates are seen. Reviewed by: Vj Shearer MD on 10/14/2022 1:08 PM PADMINI Approved by: Vj Shearer MD on 10/14/2022 1:08 PM PADMINI Station ID: [id number]
[2022-10-14 14:11] LABS: WBC CLUMPS,URINE PRESENT; WBC,URINE >25 /HPF (0-5)
[2022-10-14 14:12] LABS: BACTERIA,URINE Many /HPF (None Seen); EPITHELIAL CELLS,UR FEW Transitional /HPF (<= Few); SQUAMOUS EPITHELIAL CELL,UR FEW Squamous (<= Few)
[2022-10-14 14:16] LABS: BASOPHILS % (AUTO) 0.4 %; EOSINOPHILS # (AUTO) 0.2 10^3/uL (0.0-0.7); EOSINOPHILS % (AUTO) 1.6 %; HCT - HEMATOCRIT 35.5 % (37.0-47.0); HGB - HEMOGLOBIN 11.9 g/dL (12.0-16.0); LYMPHOCYTES # (AUTO) 0.5 10^3/uL (1.5-3.5); MEAN CORPUSCULAR HEMOGLOBIN 30.3 pg (27.0-31.0); MEAN CORPUSCULAR HGB CONC 33.5 g/dL (32.0-36.0); MEAN CORPUSCULAR VOLUME 90.3 fL (81.0-99.0); MEAN PLATELET VOLUME 9.6 fL (7.9-10.8); MONOCYTES # (AUTO) 0.3 10^3/uL (0.0-1.0); NEUTROPHILS # (AUTO) 10.1 10^3/uL (1.5-6.6); PLT - PLATELET COUNT 141 10^3/uL (130-450); RED BLOOD COUNT 3.93 10^6/uL (4.20-5.40); RED CELL DISTRIBUTION WIDTH 12.4 % (12.0-15.0); WHITE BLOOD COUNT 11.2 x10^3/uL (4.8-10.8)
[2022-10-14 14:25] LABS: ALBUMIN 3.7 g/dL (3.2-5.5); ALBUMIN/GLOBULIN RATIO 0.9 (1.0-2.2); BILIRUBIN,TOTAL 1.3 mg/dL (0.2-1.0); CALCIUM 8.5 mg/dL (8.5-10.3); POTASSIUM 4.9 mmol/L (3.5-5.0); TOTAL PROTEIN 7.6 g/dL (6.7-8.2)
[2022-10-14] MEDS ORDERED: cefTRIAXone 1 GM VIAL IVP STA (14:49)
[2022-10-14 15:11] LABS: B. PARAPERTUSSIS- RESP PCR PAN NOT DETECTED; B. PERTUSSIS- RESP PCR PANEL NOT DETECTED; C. PNEUMONIAE- RESP PCR PANEL NOT DETECTED; CORONAVIRUS 229E-RESP PCR NOT DETECTED; CORONAVIRUS HKU1-RESP PCR NOT DETECTED; CORONAVIRUS NL63-RESP PCR NOT DETECTED; CORONAVIRUS OC43-RESP PCR NOT DETECTED; HUMAN METAPNEUMOVIRUS NOT DETECTED; INFLUENZA A- RESP PCR PANEL NOT DETECTED; INFLUENZA B - RESP PCR PANEL NOT DETECTED; M. PNEUMONIAE- RESP PCR PANEL NOT DETECTED; PARAINFLUENZA VIRUS 1 NOT DETECTED; PARAINFLUENZA VIRUS 2 NOT DETECTED; PARAINFLUENZA VIRUS 3 NOT DETECTED; PARAINFLUENZA VIRUS 4 NOT DETECTED; RHINOVIRUS/ENTEROVIRUS NOT DETECTED; RSV- RESP PCR PANEL NOT DETECTED; SARS-CoV-2 -RESP PCR PANEL NOT DETECTED
--- NOTE | 2022-10-14 16:58 | CT Report ---
PROCEDURE: HEAD WO INDICATIONS: bruised scalp; headache TECHNIQUE: Noncontrast 4.5 mm thick angled axial sections acquired from the foramen magnum to the vertex. For r adiation dose reduction, the following was used: automated exposure control, adjustment of mA and/or kV according to patient size. COMPARISON: 07/17/2020 FINDINGS: Image quality: Excellent. CSF spaces: Basal cisterns are patent. No extra-axial fluid collections. Ventricles are normal in size and shape. Brain: A small amount of subdural hemorrhage can be seen layering along the right tentorium, measuri ng up to 3 mm in thickness. No midline shift. Akins-white matter interface is normal. Skull and face: Calvarium and visualized facial bones are intact, without suspicious lesions. Sinuses: Visualized sinuses and mastoids are clear. IMPRESSION: Subdural hemorrhage seen layering along the right tentorium. Note: Dr. Rendon was not available to discuss this case at the time of this dictation. ER staff, Fabienne yen, confirms that Dr. Rendon is already aware of the critical finding at 3:56 PM [place] time on 023. Reviewed by: Vj Shearer MD on 10/14/2022 3:57 PM PADMINI Approved by: Vj Shearer MD on 10/14/2022 3:57 PM PADMINI Station ID: [id number]
[2022-10-14] MEDS ORDERED: LIDOCAINE PATCH 5% TOP STA (19:39)
--- NOTE | 2022-10-14 20:28 | ED Physician Documentation ---
ED Addendum - Addendum Addendum: Patient signed out to me by Dr. Rendon. She is awaiting a neurosurgery consultation at [facility] for a 3 mm subdural.I evaluated her at the bedside with her family. Per family she is back to her usual self. She reports having ongoing sciatica pain and is requesting something for it. She is unsure which she usually takes at home. 10/14/22 20:24 D/w [facility] neurosurgery, Dr. Rangel. Recommends repeating the CT scan at 4 hours. If unchanged patient can be discharged. If there are changes to CT or patient's presentation then would recommend reconsultation. 10/14/22 21:[address] demonstrates that her subdural has increased in size from 3 mm to 6 mm. We will reconsult with neurosurgery at [facility]. 1. Slight interval increase in size of a small subdural hematoma layering along the right tentorium. No midline shift or other evidence of herniation. 0- D/W Dr. Love - Neurosurgery at [facility]. He is able to review both sets of images and does not feel that there is much of a difference. He feels that she is stable for discharge from a neurosurgical standpoint. He states that subdurals in this region usually never expand. Patient states that she is doing much better. She is able to place her own Hearing aids back into her ears without assistance and is ambulating to the bathroom without any difficulty. CT scan of the abdomen pelvis without contrast was obtained given fever and elevated creatinine and there is no signs of an obstructive process.Her creatinine did not change after 1 L of IV fluid so she was given an additional liter.Her prior creatinine levels were in the range of 1.2-1.6. As it has not doubled I do not think she needs hospitalization for this. She has good support with family. She has a son at the bedside who is going to be with her tonight and then several children who are in the [facility] that she is going to stay with tomorrow.I did review instructions for close follow-up with her primary care Regarding her urine infection, subdural hemorrhage, elevated kidney function. They are also aware of concerning symptoms to return for. Departure - Departure Disposition: 01 Home, Self Care Clinical Impression: UTI (urinary tract infection), Fever, General weakness, Fall, Traumatic subdural hematoma, Scalp contusion, Elbow contusion Condition: Stable Instructions: Hematoma Subdural, ED UTI Cystitis Female Follow-Up: Finn Romero MD [Primary Care Provider] - Prescriptions: Cefdinir 300 mg PO BID #20 cap Comments: You were found to have a urinary tract infection. I have sent a prescription for an antibiotic for 10 days to [facility] in [place]. Please make sure to take the antibiotic as directed. It is also important that you stay Hydrated. Please make sure you are drinking plenty of water. I would like you to call your primary care doctor in the morning for close follow-up and for recheck of your kidney levels. You were also found to have a small area of bleeding in your brain. We did consult with the neurosurgery team at [facility]. We repeated your scan and The bleeding had not really increased in size and so they feel you are okay to go home. Please follow-up with your primary care doctor Regarding this. Do not t abena any blood thinners including aspirin until you are cleared by your primary care doctor. Return to the emergency department if you develop any new or worsening symptoms such as confusion, continued fever, pain Or with any concerns. Discharge Date/Time: 10/15/22 00:31
[2022-10-14 20:33] LABS: INR 1.2 (0.8-1.2)
[2022-10-14 21:03] LABS: CALCIUM 7.2 mg/dL (8.5-10.3); CREATININE 2.1 mg/dL (0.4-1.0); POTASSIUM 4.3 mmol/L (3.5-5.0)
--- NOTE | 2022-10-14 21:10 | CT Report ---
PROCEDURE: HEAD WO INDICATIONS: repeat scan/4hr ct/subdural TECHNIQUE: Noncontrast 4.5 mm thick angled axial sections acquired from the foramen magnum to the vertex. For r adiation dose reduction, the following was used: automated exposure control, adjustment of mA and/or kV according to patient size. COMPARISON: Prior CT head 10/14/2022. FINDINGS: Image quality: Excellent. CSF spaces: Basal cisterns are patent. No extra-axial fluid collections. There is mild cerebral vol ume loss with prominence of the ventricles and sulci. Brain: A small right subdural hematoma layering along the right tentorium demonstrates slight interv al increase in size, now measuring up to 0.6 cm in thickness on coronal series 6 image 25 compared to 0.3 cm previously. No midline shift or other evidence of herniation. Akins-white matter interface brennan ears preserved. There are scattered periventricular hypodensities consistent with mild chronic small vessel ischemic changes. Skull and face: Calvarium and visualized facial bones are intact, without suspicious lesions. Sinuses: Visualized sinuses and mastoids are clear. IMPRESSION: 1. Slight interval increase in size of a small subdural hematoma layering along the right tentorium. No midline shift or other evidence of herniation. Reviewed by: Richard Cantrell MD on 10/14/2022 9:09 PM PDT Approved by: Richard Cantrell MD on 10/14/2022 9:09 PM PDT Station ID: [id number]
--- NOTE | 2022-10-14 23:00 | CT Report ---
PROCEDURE: ABDOMEN/PELVIS WO INDICATIONS: fever;elevated Cr; UTI TECHNIQUE: Noncontrast 5 mm thick sections acquired from the diaphragms to the symphysis. 5 mm coronal and sagi ttal reformats were then performed. For radiation dose reduction, the following was used: automated exposure control, adjustment of mA and/or kV according to patient size. COMPARISON: CT abdomen pelvis 08/04/2021. FINDINGS: Image quality: Excellent. Lung bases:There is bibasilar bronchial wall thickening most prominent within the lower lobes with b ibasilar linear areas of scarring and atelectasis. Heart: Heart is normal in size. There is a small hiatal hernia. ABDOMEN: Liver:Noncontrast evaluation of the liver demonstrates no discrete mass. Gallbladder: Within normal limits without calcified gallstones. Biliary ducts: No biliary ductal dilatation. Pancreas: Unremarkable. Spleen: Normal in size. Adrenal Glands: No adrenal nodules. Kidneys and Ureters:There is asymmetric new right perinephric stranding with a small amount of perin ephric fluid. No definite hydronephrosis or hydroureter. A right extrarenal pelvis is noted. Left kid heather demonstrates no hydronephrosis. No renal stones within the right or left kidney. Stomach and Bowel: Stomach, small bowel loops, and colon are normal in caliber and wall thickness. T he appendix is normal. Peritoneum:There is a small amount of fluid in the right posterior pararenal space inferiorly. No f ree air. Ventral Wall: No hernia. Abdominal Nodes: No retroperitoneal or mesenteric adenopathy by size criteria. Vessels: Aorta and inferior vena cava are normal in size. PELVIS: Pelvic Organs:There are prominent vascular calcifications within the uterus. Bladder:Bladder wall thickness appears within normal limits. No calcified bladder stones.. Pelvic Nodes: No enlarged lymph nodes. Miscellaneous: No inguinal hernias. Bones: Visualized osseous structures demonstrate no suspicious lesions. IMPRESSION: 1. Prominent right perinephric stranding and small amount of perinephric fluid suggestive of pyelonep hritis given clinical history, with evaluation limited in the absence of intravenous contrast. No def inite hydronephrosis or perinephric abscess. 2. No evidence of appendicitis. Reviewed by: Richard Cantrell MD on 10/14/2022 10:59 PM PDT Approved by: Richard Cantrell MD on 10/14/2022 10:59 PM PDT Station ID: [id number]
[2022-10-15 00:17] VITALS: BP 115/59
--- NOTE | 2022-10-15 11:51 | ED Physician Documentation ---
ED Addendum - Addendum Addendum: 10/15/22 11:51 Blood cultures are positive for E. coli and both bottles. Given her fever, pyelonephritis on CT, I recommend that she return to the ER for repeat evaluation. Patient will be called by the nursing staff. GM reynolds
== END 2022-10-15 00:31 | disposition home or self-care (01) ==
LOC: EDUNIT# → ED 13:13
DX: S06.5XAA Traumatic subdural hemorrhage with loss of consciousness status unknown, initial encounter (principal); S00.03XA Contusion of scalp, initial encounter; S50.01XA Contusion of right elbow, initial encounter; W19.XXXA Unspecified fall, initial encounter; N39.0 Urinary tract infection, site not specified; R53.1 Weakness; B96.20 Unspecified Escherichia coli [E. coli] as the cause of diseases classified elsewhere; I10 Essential (primary) hypertension; E11.9 Type 2 diabetes mellitus without complications; Z79.899 Other long term (current) drug therapy; Z20.822 Contact with and (suspected) exposure to COVID-19
CPT/HCPCS: 36415; 70450; 71045; 74176; 80048; 80053; 81001; 83605; 83690; 83735; 85025; 85610; 87040; 87086; 87150; 87181; 87633; 96374; 96375; 99284; A9270; 81003

== ENCOUNTER 2022-10-15 17:12 | Inpatient (IN) | payer MEDICARE, MEDICAID ==
[2022-10-15 17:34] LABS: BASOPHILS # (AUTO) 0.2 10^3/uL (0.0-0.1); BASOPHILS % (AUTO) 0.8 %; EOSINOPHILS % (AUTO) 0.1 %; HCT - HEMATOCRIT 33.5 % (37.0-47.0); HGB - HEMOGLOBIN 11.2 g/dL (12.0-16.0); LYMPHOCYTES # (AUTO) 0.7 10^3/uL (1.5-3.5); LYMPHOCYTES % (AUTO) 3.7 %; MEAN CORPUSCULAR HEMOGLOBIN 30.4 pg (27.0-31.0); MEAN CORPUSCULAR HGB CONC 33.4 g/dL (32.0-36.0); MEAN PLATELET VOLUME 9.8 fL (7.9-10.8); MONOCYTES # (AUTO) 0.6 10^3/uL (0.0-1.0); MONOCYTES % (AUTO) 3.3 %; NEUTROPHILS # (AUTO) 16.5 10^3/uL (1.5-6.6); NEUTROPHILS % (AUTO) 91.3 %; PLT - PLATELET COUNT 125 10^3/uL (130-450); RED BLOOD COUNT 3.68 10^6/uL (4.20-5.40); WHITE BLOOD COUNT 18.1 x10^3/uL (4.8-10.8)
[2022-10-15 17:46] LABS: SLIDE REVIEW? Indicated
[2022-10-15 17:47] LABS: INR 1.3 (0.8-1.2); PT - PROTHROMBIN TIME 14.3 secs (9.9-12.6)
[2022-10-15] MEDS ORDERED: cefTRIAXone 2 GM in SODIUM CHLORIDE 0.9% MINIBAG 100 ML IV STA (17:57)
[2022-10-15 18:02] LABS: ALBUMIN/GLOBULIN RATIO 0.8 (1.0-2.2); BILIRUBIN,TOTAL 0.8 mg/dL (0.2-1.0); CALCIUM 7.9 mg/dL (8.5-10.3); POTASSIUM 4.1 mmol/L (3.5-5.0); TOTAL PROTEIN 6.8 g/dL (6.7-8.2)
[2022-10-15 18:07] LABS: DIFFERENTIAL COMMENT MANUAL=AUTO DIFF; PLATELET ESTIMATE, MANUAL DECREASED (<130,000) (NORMAL); PLATELET MORPHOLOGY NORMAL APPEARANCE (NORMAL); RBC MORPHOLOGY (MULTIPLE) NORMAL APPEARANCE (NORMAL)
--- NOTE | 2022-10-15 18:27 | ED Physician Documentation ---
History of Present Illness - Stated complaint Stated Complaint: FEMALE ER CALLED BACK - Chief complaint Chief Complaint: General - History obtained from History obtained from: Patient, Family, Other (Chart review from visit yesterday) - Additonal information Additional information: 87-year-old Female presents after being called back for positive blood cultures and urine culture. Patient was seen yesterday for fever, nausea and vomiting and was found down on the floor after possible fall. She had a work-up in the ER yesterday including blood cultures and additional testing which revealed pyel onephritis and also a small subdural hematoma. Neurosurgery was consulted and monitoring recommended, no direct transfer indicated. The patient was discharged home and was called back today due to positive blood cultures with E. coli in 2 bottles as well as the urine. She had been taking oral antibiotics for this is a was called to return for evaluation. She has not had any more fevers, does continue to feel nauseous and dizzy and weak. She also has some flank and lower back pain. She has not had any acute mental status changes. She is accompanied by her son today who assists with history. Review of Systems Constitutional: reports: Fever, Chills, Myalgias Eyes: reports: Reviewed and negative Ears: reports: Reviewed and negative Nose: reports: Reviewed and negative Throat: reports: Reviewed and negative Cardiac: reports: Reviewed and negative Respiratory: reports: Reviewed and negative GI: reports: Abdominal Pain, Nausea, Vomiting. denies: Abdominal Swelling, Con stipation, Diarrhea, Hematemesis, Bloody / black stool : reports: Frequency, Hesitancy Skin: reports: Reviewed and negative Musculoskeletal: reports: Back pain Neurologic: reports: Generalized weakness, Headache. 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 : None HEENT: None Psych: None Musculoskeletal: None Derm: None - Past Surgical History Past Surgical History: No Ortho: Carpal Tunnel surgery - Present Medications Home Medications: Ambulatory Orders Medication Instructions Recorded Confirmed Metformin HCl 500 mg PO BID 12/29/12 12/15/20 amLODIPine [Norvasc] 10 mg PO DAILY 12/29/12 12/15/20 atenoloL [Tenormin] 100 mg PO DAILY 12/29/12 12/15/20 Losartan Potassium [Cozaar] 100 mg PO DAILY 12/15/20 12/15/20 Meloxicam [Mobic] 15 mg PO DAILY 12/15/20 12/15/20 Pantoprazole [Protonix] 40 mg PO DAILY 12/15/20 12/15/20 methocarbamoL [Methocarbamol] 500 mg PO TID PRN 12/15/20 12/15/20 Famotidine [Pepcid] 20 mg PO BID #60 tablet 08/04/21 Sucralfate [Carafate] 1 gm PO ACHS #60 tablet 08/04/21 Cefdinir 300 mg PO BID #20 cap 10/15/22 - Allergies Allergies/Adverse Reactions: Allergies Allergy/AdvReac Type Severity Reaction Status Date / Time No Known Drug Allergies Allergy Verified 10/15/22 17:44 - Social History Does the pt smoke?: No Smoking Status: Never smoker Does the pt drink ETOH?: Yes Does the pt have substance abuse?: No - Immunizations Immunizations are current?: Yes - POLST Patient has POLST: No PD ED PE NORMAL - Vitals Vital signs reviewed: Yes - General General: Alert and oriented X 3, No acute distress, Well developed/nourished - HEENT HEENT: Atraumatic, PERRL, EOMI, Ears normal, Moist mucous membranes, Pharynx benign - Neck Neck: Supple, no meningeal sign, No JVD - Cardiac Cardiac: RRR, No murmur - Respiratory Respiratory: No respiratory distress, Clear bilaterally - Abdomen Abdomen: Normal bowel sounds, Soft, Non tender, Non distended - Back Back: No spinal TTP. 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 Eye Opening: Spontaneous Motor: Obeys Commands Verbal: Oriented GCS Score: 15 Results - Vitals Vitals: Vital Signs - 24 hr 10/15/22 17:40 Temperature 37.9 C Heart Rate 84 Respiratory 16 Rate Blood Pressure 150/64 H O2 Saturation 94 Oxygen O2 Source Room air - Labs Labs: Laboratory Tests 10/15/22 10/15/22 10/15/22 17:28 17:28 17:28 WBC 18.1 H RBC 3.68 L Hgb 11.2 L Hct 33.5 L MCV 91.0 MCH 30.4 MCHC 33.4 RDW 13.0 Plt Count 125 L MPV 9.8 Neut # (Auto) 16.5 H Lymph # (Auto) 0.7 L Calloway # (Auto) 0.6 Eos # (Auto) 0.0 Baso # (Auto) 0.2 H Absolute Nucleated RBC 0.00 Band Neuts % (Manual) Not Reportable Abnorm Lymph % (Manual) Not Reportable Nucleated RBC % 0.0 Neutrophils # (Manual) Not Reportable Lymphocytes # (Manual) Not Reportable Monocytes # (Manual) Not Reportable Eosinophils # (Manual) Not Reportable Basophils # (Manual) Not Reportable Differential Comment MANUAL=AUTO DIFF Manual Slide Review Indicated Platelet Estimate DECREASED (<130,000) Platelet Morphology NORMAL APPEARANCE RBC Morph Micro Appear NORMAL APPEARANCE PT 14.3 H INR 1.3 H Sodium 134 L Potassium 4.1 Chloride 112 H Carbon Dioxide 17 L Anion Gap 5.0 L BUN 39 H Creatinine 2.0 H Estimated GFR (MDRD) 24 L Glucose 121 H Lactic Acid Calcium 7.9 L Total Bilirubin 0.8 AST 32 ALT 34 Alkaline Phosphatase 76 Total Protein 6.8 Albumin 3.0 L Globulin 3.8 Albumin/Globulin Ratio 0.8 L Lipase 38 10/15/22 17:28 WBC RBC Hgb Hct MCV MCH MCHC RDW Plt Count MPV Neut # (Auto) Lymph # (Auto) Calloway # (Auto) Eos # (Auto) Baso # (Auto) Absolute Nucleated RBC Band Neuts % (Manual) Abnorm Lymph % (Manual) Nucleated RBC % Neutrophils # (Manual) Lymphocytes # (Manual) Monocytes # (Manual) Eosinophils # (Manual) Basophils # (Manual) Differential Comment Manual Slide Review Platelet Estimate Platelet Morphology RBC Morph Micro Appear PT INR Sodium Potassium Chloride Carbon Dioxide Anion Gap BUN Creatinine Estimated GFR (MDRD) Glucose Lactic Acid 1.5 Calcium Total Bilirubin AST ALT Alkaline Phosphatase Total Protein Albumin Globulin Albumin/Globulin Ratio Lipase PD Medical Decision Making - ED course Complexity details: reviewed old records, reviewed results, re-evaluated patient, considered differential, d/w patient, d/w family ED course: This is an 87-year-old female who was seen yesterday from multiple different issues and diagnosed with pyelonephritis. Her blood cultures ultimately came back positive, suspected E. coli, and she has E. coli in her urine. She continues to feel unwell but is nontoxic appearing. We obtained repeat blood cultures here as well as labs. Her white count has gone up from 11 up to 18,000, her lactate however is normal. Her renal function is at baseline. We have recollected blood cultures and have started the patient on ceftriaxone for suspected E. coli bacteremia. I will also get a repeat head CT given her small subdural seen yesterday. The patient will then need to be admitted for bacteremia pyelonephritis. Patient is willing to stay in the hospital. Departure - Departure Disposition: [facility] DC/Maury Clinical Impression: Pyelonephritis, Bacteremia Condition: Good
--- NOTE | 2022-10-15 19:18 | HISTORY & PHYSICAL EXAMINATION ---
Chief Complaint - Chief Complaint Chief Complaint: weakness History of Present Illness - Admitted From Admitted From:: weakness - History of Present Illness HPI Comment/Other: 85 y/o F called back after her cultures came back positive for e coli after a visit she had yesterday and was found to have pylo. Today she fees better but still weak and some n/v. no chills. 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 : reports: None HEENT: reports: None Psych: reports: None Musculoskeletal: reports: None Derm: reports: None MRSA Hx?: No - Past Surgical History Ortho: reports: Carpal Tunnel surgery - Family & Social History Living Situation: With family (her son) - POLST Patient has POLST: No Meds/Allgy - Home Medications Home Medications: Ambulatory Orders Medication Instructions Recorded Confirmed Metformin HCl 500 mg PO BID 12/29/12 12/15/20 amLODIPine [Norvasc] 10 mg PO DAILY 12/29/12 12/15/20 atenoloL [Tenormin] 100 mg PO DAILY 12/29/12 12/15/20 Losartan Potassium [Cozaar] 100 mg PO DAILY 12/15/20 12/15/20 Meloxicam [Mobic] 15 mg PO DAILY 12/15/20 12/15/20 Pantoprazole [Protonix] 40 mg PO DAILY 12/15/20 12/15/20 methocarbamoL [Methocarbamol] 500 mg PO TID PRN 12/15/20 12/15/20 Famotidine [Pepcid] 20 mg PO BID #60 tablet 08/04/21 Sucralfate [Carafate] 1 gm PO ACHS #60 tablet 08/04/21 Cefdinir 300 mg PO BID #20 cap 10/15/22 - Allergies Allergies/Adverse Reactions: Allergies Allergy/AdvReac Type Severity Reaction Status Date / Time No Known Drug Allergies Allergy Verified 10/15/22 17:44 Review of Systems - Gastrointestinal Gastrointestinal: reports: Nausea - Neurological Neurological: reports: General weakness (above) Exam - Vital Signs Vital Signs: Vital Signs x48h Temp Pulse Resp BP Pulse Ox 10/15/22 17:40 37.9 C 84 16 150/64 H 94 - Physical Exam General Appearance: positive: No acute distress Eyes Bilateral: positive: Normal inspection ENT: positive: ENT inspection nml Neck: positive: Nml inspection Respiratory: positive: No respiratory distress Cardiovascular: positive: Regular rate & rhythm Abdomen: positive: Non-tender, Nml bowel sounds Back: positive: Nml inspection Extremities: positive: Nml appearance Neurologic/Psychiatric: positive: Oriented x3 Conclusion/Plan - Lab Results Fish Bones: 10/15/22 17:28 10/15/22 17:28 - Other Other Results/Comments: 85 y/o F # bacterimia and pyelo: ivf, iv antibiotics, repeat culture, monitor #SDH repeat unchanged and ED CANDELARIA says discussed with neurosurgery again and no need for transfer #HTN; continue home meds # dvt ppx: CSD
[2022-10-15] MEDS ORDERED: SODIUM CHLORIDE 0.9% 500 ML IV STA (19:43)
[2022-10-15] MEDS ORDERED: ACETAMINOPHEN 325 MG TABLET PO STA (19:43)
--- NOTE | 2022-10-15 19:58 | CT Report ---
PROCEDURE: HEAD WO INDICATIONS: follow up sdh TECHNIQUE: Noncontrast 4.5 mm thick angled axial sections acquired from the foramen magnum to the vertex. For r adiation dose reduction, the following was used: automated exposure control, adjustment of mA and/or kV according to patient size. COMPARISON: Head CT of 10/14/2022 at 8:40 PM and 4:31 PM FINDINGS: Image quality: Excellent. CSF spaces: Basal cisterns are patent. Right subdural hematoma along the inferior aspect of the tent orium measuring 0.5 cm, (5/24), previously 0.3 cm, stable to slightly increased. Ventricles are norm al in size and shape. Brain: No midline shift. No intracranial masses or intraparenchymal hemorrhage. No area of hypoden sity in a vascular distribution to suggest acute infarction. There is periventricular hypodensity con sistent with chronic microvascular ischemic disease. Age-related parenchymal loss. Skull and face: Calvarium and visualized facial bones are intact, without suspicious lesions. Sinuses: Visualized sinuses and mastoids are clear. IMPRESSION: Small subdural hematoma at the right tentorium is stable to slightly increased compared to yesterday. Reviewed by: Jeramie Villalobos MD on 10/15/2022 7:57 PM PDT Approved by: Jeramie Villalobos MD on 10/15/2022 7:57 PM PDT Station ID: [id number]
[2022-10-15] MEDS ORDERED: SODIUM CHLORIDE FLUSH 0.9% 10 ML SYRINGE IVP PRN (20:15)
[2022-10-15] MEDS: SODIUM CHLORIDE 0.9% 1,000 ML IV SCH (21:25)
[2022-10-15] MEDS: PIPERACILLIN/TAZOBACTAM 3.375 GM in SODIUM CHLORIDE 0.9% MINIBAG 100 ML IV SCH (21:25)
[2022-10-15] MEDS: INSULIN LISPRO 300 UNIT/3 ML PEN SUBQ SCH (21:28)
[2022-10-15] MEDS: SUCRALFATE 1 GM/10 ML UDC PO SCH (21:30)
[2022-10-15] MEDS: SODIUM CHLORIDE FLUSH 0.9% 10 ML SYRINGE IVP SCH (21:30)
--- NOTE | 2022-10-15 22:46 | PROVIDER PROGRESS NOTE ---
Cloud Systems Administrator Note - Cloud Systems Administrator Note Cloud Systems Administrator Note: #renal insufficiency: remains same as prior visit, could be CKD due to HTN or DM. IVF and monitor. will ask outside records and if no improvement might need renal w/u. #thrombocytopenia: slight worsening since yesterday. unclear age and etiology. will ask records. In view of SDH monitor closely. avoid anticoagulants at this time. check DIC panel.
[2022-10-15] MEDS ORDERED: hydrALAZINE INJ 20 MG/ML VIAL IVP ONE (22:51)
[2022-10-15 23:17] LABS: D-DIMER > 1050.0 ng/mL (200.0-255.0)
[2022-10-15 23:47] LABS: FIBRINOGEN 725 mg/dL (220-496)
[2022-10-16] MEDS: PIPERACILLIN/TAZOBACTAM 3.375 GM in SODIUM CHLORIDE 0.9% MINIBAG 100 ML IV SCH (03:37)
[2022-10-16] MEDS: SUCRALFATE 1 GM/10 ML UDC PO SCH ×4 (06:15→20:52)
[2022-10-16 06:17] LABS: BASOPHILS % (AUTO) 0.5 %; EOSINOPHILS % (AUTO) 0.4 %; HCT - HEMATOCRIT 30.6 % (37.0-47.0); HGB - HEMOGLOBIN 10.1 g/dL (12.0-16.0); LYMPHOCYTES % (AUTO) 3.9 %; MEAN CORPUSCULAR HEMOGLOBIN 30.2 pg (27.0-31.0); MEAN CORPUSCULAR VOLUME 91.6 fL (81.0-99.0); MEAN PLATELET VOLUME 10.3 fL (7.9-10.8); MONOCYTES % (AUTO) 4.2 %; NEUTROPHILS % (AUTO) 90.4 %; PLT - PLATELET COUNT 124 10^3/uL (130-450); RED BLOOD COUNT 3.34 10^6/uL (4.20-5.40); RED CELL DISTRIBUTION WIDTH 13.2 % (12.0-15.0); WHITE BLOOD COUNT 16.7 x10^3/uL (4.8-10.8)
[2022-10-16 06:25] LABS: CALCIUM 7.5 mg/dL (8.5-10.3); CREATININE 1.8 mg/dL (0.4-1.0); POTASSIUM 3.9 mmol/L (3.5-5.0)
[2022-10-16 06:30] LABS: ABNORMAL LYMPHS % (MANUAL) 0 %
[2022-10-16 06:49] LABS: BAND NEUTROPHILS % (MANUAL) 10 %; LYMPHOCYTES # (MANUAL) 0.7 10^3/uL (1.5-3.5); LYMPHOCYTES % (MANUAL) 4 %; METAMYELOCYTES % (MANUAL) 1 %; MONOCYTES # (MANUAL) 0.3 10^3/uL (0.0-1.0); NEUTROPHILS # (MANUAL) 15.5 10^3/uL (1.5-6.6)
[2022-10-16 06:50] LABS: DIFFERENTIAL COMMENT MANUAL DIFFERENTIAL; PLATELET ESTIMATE, MANUAL DECREASED (<130,000) (NORMAL); PLATELET MORPHOLOGY NORMAL APPEARANCE (NORMAL); RBC MORPHOLOGY (MULTIPLE) NORMAL APPEARANCE (NORMAL); WBC MORPHOLOGY (MULTIPLE) NORMAL APPEARANCE (NORMAL)
[2022-10-16 07:12] LABS: BILIRUBIN,URINE NEGATIVE (NEGATIVE); GLUCOSE, URINE (UA) NEGATIVE (NEGATIVE); KETONES,URINE (UA) TRACE mg/dL (NEGATIVE); LEUKOCYTE ESTERASE, URINE TRACE (NEGATIVE); NITRITE,URINE NEGATIVE (NEGATIVE); OCCULT BLOOD,URINE TRACE-INTA (NEGATIVE); PROTEIN,URINE 100 mg/dL (NEGATIVE); UROBILINOGEN,URINE 0.2 (NORMAL) E.U./dL (NORMAL)
[2022-10-16 07:20] LABS: BACTERIA,URINE Few /HPF (None Seen); CLARITY,URINE HAZY (CLEAR); SQUAMOUS EPITHELIAL CELL,UR RARE Squamous (<= Few)
[2022-10-16] MEDS: INSULIN LISPRO 300 UNIT/3 ML PEN SUBQ SCH ×4 (07:49→20:57)
[2022-10-16] MEDS: amLODIPine 5 MG TABLET PO SCH (08:33)
[2022-10-16] MEDS: PANTOPRAZOLE 40 MG TABLET PO SCH (08:33)
[2022-10-16] MEDS: cefTRIAXone 2 GM in SODIUM CHLORIDE 0.9% MINIBAG 100 ML IV SCH (08:34)
[2022-10-16] MEDS: SODIUM CHLORIDE 0.9% 1,000 ML IV SCH (08:34)
[2022-10-16] MEDS ORDERED: atenoloL 25 MG TABLET PO SCH (09:00)
[2022-10-16] MEDS: SODIUM CHLORIDE FLUSH 0.9% 10 ML SYRINGE IVP SCH ×3 (10:36→20:57)
--- NOTE | 2022-10-16 11:17 | PHARMACY PROGRESS NOTE ---
- Best Possible Medication History Admit Date and Time: 10/15/222014 Processed by: Pharmacy Medication History completed: Yes Patient Interview: Pt unable to participate Secondary Source(s): Pharmacy records, Insurance records Patient and her did not know which medications patient was taking and requested I use [facility] records. As the person ultimately responsible for medication therapy, providers are able to order a medication from an existing home medication list in [facility] via the "Reconcile Routine" prior to Confirmation of that medication by senior administrative support. Such practice is discouraged except when the physician, in their clinical judgment, deems that a medical need exists for a medication without regard to previous use.
--- NOTE | 2022-10-16 14:14 | PROVIDER PROGRESS NOTE ---
Assessment/Plan - Problem List (1) E coli bacteremia Assessment/Plan: The cause is her UTI, E. coli is growing in the urine as well Plan: Continue empiric iv antibx with ceftriaxone Will repeat culture to assure no growth on antibx, monitor I updated the daughter and son-in-law at bedside today about her status and the plan 2) Wheezing She complains of shortness of breath today and wheezing is audible This may be from being on Tenormin, a nonselective beta-marcelle which was on her old medication list, since the true meds on her reconciled medication list shows metoprolol succinate This could be from IV fluids causing volume overload Plan: We will stop the Tenormin and resume metoprolol succinate We will decrease IV fluids to TKO We will obtain a stat chest x-ray, give Lasix if needed>> CXR did show CHF>> will stop iv NS, give Lasix 40 mg iv x1, check troponins x2, BNP now and daily and get EKG now 3) Pyelonephritis Right-sided renal stranding is seen on CT imaging (Radiol reports were reviewed). consistent with pyelonephritis Plan: Continue iv antibiotics 4) E. coli UTI Her urine culture is growing raza-sensitive E. coli. The blood culture E. coli has not had sensitivities done yet to know if it is the same E. coli Plan: Continue iv antibx with ceftriaxone 5) Subdural hematoma Th repeat head imaging was unchanged and ED note says discussed with neurosurgery again and no need for transfer Plan: Monitor Will order OT and OT evals 6) PSVT Patient had a 4-second run of SVT that terminated spontaneously. The rate was 150. Patient was asymptomatic with this. Plan: We will obtain EKG, troponins and order an Echo (7) DM type 2 Plan: Continue with hypoglycemia protocol, fingerstick checks, sliding scale insulin coverage Obtain A1c 8) HTN; Plan: Will resume home meds, now that her med list was reconciled by pharmacy 9) CKD Labs were all reviewed. Her creat remains essentially same as prior visits. This could be CKD due to HTN or DM. She has recvd 1 day of IVF Plan: We will stop IV hydration due to the CHF seen on chest x-ray Avoid nephrotoxins Monitor BMP daily 10) Thrombocytopenia: Plts remain slight worse since the previous ER visit. Unclear age and etiology. We checked a DIC panel which was unremarkable Plan: In view of SDH, will monitor CBC closely. Will avoid anticoagulants at this time. - Current Meds Current Meds: Current Medications Generic Name Dose Route Start Last Admin Trade Name Tyler PRN Reason Stop Dose Admin Amlodipine Besylate 10 mg 10/16/22 09:00 10/16/22 08:33 Amlodipine 5 Mg Tablet PO 10 mg DAILY RENA Administration Ceftriaxone Sodium 2 gm/ 100 mls @ 200 mls/hr 10/16/22 09:00 10/16/22 09:05 Sodium Chloride IV Infused DAILY RENA Infusion Insulin Human Lispro 1 - 5 unit 10/15/22 21:00 10/16/22 11:39 Insulin Lispro 300 Unit/3 Ml Pen SUBQ 1 unit 0800,1200,1700,2100 RENA Administration Protocol Pantoprazole Sodium 40 mg 10/16/22 09:00 10/16/22 08:33 Pantoprazole 40 Mg Tablet PO 40 mg DAILY RENA Administration Sodium Chloride 10 ml 10/16/22 01:00 10/16/22 10:36 Sodium Chloride Flush 0.9% 10 Ml Syringe IVP Not Given 0100,0900,1700 RENA Sucralfate 1 gm 10/15/22 21:00 10/16/22 11:39 Sucralfate 1 Gm/10 Ml Udc PO 1 gm ACHS RENA Administration - Lab Result Fish Bone Diagrams: 10/16/22 05:55 10/16/22 05:55 - EKG Results EKG Interpreted Independently: Yes EKG Comparison: Changed from prior EKG EKG Findings: Normal sinus rhythm, rate 70, WNL. Since EKG from 12/15/2020, early R/S transition is now absent. - Additional Planning My Orders: My Active Orders 10/16/22 Evaluate and Treat OT [OT] Routine Evaluate and Treat PT [PT] Routine 10/16/22 09:00 cefTRIAXone [Rocephin] 2 gm Sodium Chloride 0.9% Minibag [Normal Saline 0.9% M inibag] 100 ml IV DAILY 10/16/22 Lunch Carb-controlled Diet [DIET] 10/16/22 12:21 Nutrition Consult [CONS] Routine 10/16/22 14:12 Chest 1 View X-Ray [XR] Stat 10/16/22 21:00 Atorvastatin [Lipitor] 40 mg PO QPM 10/17/22 05:00 BMP - BASIC METABOLIC PANEL [CHEM] DAILYLAB CBC - COMP BLD CT W/AUTO DIFF [HEME] DAILYLAB HEMOGLOBIN A1c% [CHEM] DAILYLAB 10/17/22 09:00 Aspirin EC [Ecotrin] 81 mg PO DAILY Metoprolol Succinate [Metoprolol Succinate] 100 mg PO DAILY 10/18/22 05:00 BMP - BASIC METABOLIC PANEL [CHEM] DAILYLAB CBC - COMP BLD CT W/AUTO DIFF [HEME] DAILYLAB 10/19/22 05:00 BMP - BASIC METABOLIC PANEL [CHEM] DAILYLAB CBC - COMP BLD CT W/AUTO DIFF [HEME] DAILYLAB 10/20/22 05:00 BMP - BASIC METABOLIC PANEL [CHEM] DAILYLAB CBC - COMP BLD CT W/AUTO DIFF [HEME] DAILYLAB Subjective - Subjective Patient Reports: Shortness of Breath Nursing Reports: Other (Has no appetite, has many foods that she does not like, she and family requested no pork be in he diet) Objective Vital Signs: Vital Signs - 24 hr 10/15/22 10/15/22 10/15/22 17:40 19:53 21:30 Temperature 37.9 C 36.8 C Heart Rate 84 75 Heart Rate [ 72 Brachial] Respiratory 16 18 20 Rate Blood Pressure 150/64 H 162/72 H Blood Pressure 150/56 H [Right Brachial artery] O2 Saturation 94 96 96 10/15/22 10/15/22 10/16/22 23:35 23:45 06:20 Temperature 37.0 C 37.2 C Heart Rate Heart Rate [ 70 71 Brachial] Respiratory 20 18 Rate Blood Pressure 123/60 Blood Pressure 123/60 166/73 H [Right Brachial artery] O2 Saturation 95 96 10/16/22 10/16/22 07:29 12:59 Temperature 37 C 37.4 C Heart Rate Heart Rate [ 69 72 Brachial] Respiratory 20 18 Rate Blood Pressure Blood Pressure 155/66 H 134/63 H [Right Brachial artery] O2 Saturation 97 98 Oxygen O2 Source Room air I&O (Last 24 Hrs): Intake and Output Totals x24h 10/14/22 10/15/22 10/16/22 23:59 23:59 23:59 Intake Total 700 1500 Balance 700 1500 General: Alert, Oriented x3 HEENT: Mucous membr. moist/pink Neck: Supple, No JVD Neuro: Alert, Non Focal Cardiovascular: Regular rate, No murmurs Respiratory: Wheezes Abdomen: Normal bowel sounds, Soft Extremities: No clubbing, No edema, No tenderness/swelling - Results Results: Laboratory Results WBC 16.7 x10^3/uL (4.8-10.8) H 10/16/22 05:55 RBC 3.34 10^6/uL (4.20-5.40) L 10/16/22 05:55 Hgb 10.1 g/dL (12.0-16.0) L 10/16/22 05:55 Hct 30.6 % (37.0-47.0) L 10/16/22 05:55 MCV 91.6 fL (81.0-99.0) 10/16/22 05:55 MCH 30.2 pg (27.0-31.0) 10/16/22 05:55 MCHC 33.0 g/dL (32.0-36.0) 10/16/22 05:55 RDW 13.2 % (12.0-15.0) 10/16/22 05:55 Plt Count 124 10^3/uL (130-450) L 10/16/22 05:55 MPV 10.3 fL (7.9-10.8) 10/16/22 05:55 Neut # (Auto) Not Reportable 10/16/22 05:55 Lymph # (Auto) Not Reportable 10/16/22 05:55 Amelia # (Auto) Not Reportable 10/16/22 05:55 Eos # (Auto) Not Reportable 10/16/22 05:55 Baso # (Auto) Not Reportable 10/16/22 05:55 Absolute Nucleated RBC Not Reportable 10/16/22 05:55 Total Counted 100 10/16/22 05:55 Band Neuts % (Manual) 10 % (0-10) 10/16/22 05:55 Abnorm Lymph % (Manual) 0 % 10/16/22 05:55 Metamyelocytes % 1 % (-0) H 10/16/22 05:55 Nucleated RBC % Not Reportable 10/16/22 05:55 Neutrophils # (Manual) 15.5 10^3/uL (1.5-6.6) H 10/16/22 05:55 Lymphocytes # (Manual) 0.7 10^3/uL (1.5-3.5) L 10/16/22 05:55 Monocytes # (Manual) 0.3 10^3/uL (0.0-1.0) 10/16/22 05:55 Eosinophils # (Manual) 0.0 10^3/uL (0-0.7) 10/16/22 05:55 Basophils # (Manual) 0.0 10^3/uL (0-0.1) 10/16/22 05:55 Differential Comment MANUAL DIFFERENTIAL 10/16/22 05:55 Manual Slide Review Indicated 10/15/22 17:28 WBC Morphology NORMAL APPEARANCE (NORMAL) 10/16/22 05:55 Platelet Estimate DECREASED (<130,000) (NORMAL) 10/16/22 05:55 Platelet Morphology NORMAL APPEARANCE (NORMAL) 10/16/22 05:55 RBC Morph Micro Appear NORMAL APPEARANCE (NORMAL) 10/16/22 05:55 PT 14.3 secs (9.9-12.6) H 10/15/22 17:28 INR 1.3 (0.8-1.2) H 10/15/22 17:28 Fibrinogen 725 mg/dL (220-496) H 10/15/22 22:55 D-Dimer > 1050.0 ng/mL (200.0-255.0) H 10/15/22 22:55 Sodium 137 mmol/L (135-145) 10/16/22 05:55 Potassium 3.9 mmol/L (3.5-5.0) 10/16/22 05:55 Chloride 114 mmol/L (101-111) H 10/16/22 05:55 Carbon Dioxide 15 mmol/L (21-32) L 10/16/22 05:55 Anion Gap 8.0 (6-13) 10/16/22 05:55 BUN 36 mg/dL (6-20) H 10/16/22 05:55 Creatinine 1.8 mg/dL (0.4-1.0) H 10/16/22 05:55 Estimated GFR (MDRD) 27 (>89) L 10/16/22 05:55 Glucose 136 mg/dL (70-100) H 10/16/22 05:55 POC Whole Bld Glucose 166 mg/dL (70 - 100) H 10/16/22 11:00 Lactic Acid 1.5 mmol/L (0.5-2.2) 10/15/22 17:28 Calcium 7.5 mg/dL (8.5-10.3) L 10/16/22 05:55 Total Bilirubin 0.8 mg/dL (0.2-1.0) 10/15/22 17:28 AST 32 IU/L (10-42) 10/15/22 17:28 ALT 34 IU/L (10-60) 10/15/22 17:28 Alkaline Phosphatase 76 IU/L (42-121) 10/15/22 17:28 Total Protein 6.8 g/dL (6.7-8.2) 10/15/22 17:28 Albumin 3.0 g/dL (3.2-5.5) L 10/15/22 17:28 Globulin 3.8 g/dL (2.1-4.2) 10/15/22 17:28 Albumin/Globulin Ratio 0.8 (1.0-2.2) L 10/15/22 17:28 Lipase 38 U/L (22-51) 10/15/22 17:28 Urine Color YELLOW 10/15/22 07:04 Urine Clarity HAZY (CLEAR) 10/15/22 07:04 Urine pH 6.0 PH (5.0-7.5) 10/15/22 07:04 Ur Specific [place] 1.015 (1.002-1.030) 10/15/22 07:04 Urine Protein 100 mg/dL (NEGATIVE) H 10/15/22 07:04 Urine Glucose (UA) NEGATIVE mg/dL (NEGATIVE) 10/15/22 07:04 Urine Ketones TRACE mg/dL (NEGATIVE) 10/15/22 07:04 Urine Occult Blood TRACE-INTA (NEGATIVE) 10/15/22 07:04 Urine Nitrite NEGATIVE (NEGATIVE) 10/15/22 07:04 Urine Bilirubin NEGATIVE (NEGATIVE) 10/15/22 07:04 Urine Urobilinogen 0.2 (NORMAL) E.U./dL (NORMAL) 10/15/22 07:04 Ur Leukocyte Esterase TRACE (NEGATIVE) H 10/15/22 07:04 Urine RBC 6-10 /HPF (0-5) H 10/15/22 07:04 Urine WBC 11-25 /HPF (0-5) H 10/15/22 07:04 Ur Squamous Epith Cells RARE Squamous (<= Few) 10/15/22 07:04 Urine Bacteria Few /HPF (None Seen) 10/15/22 07:04 Ur Microscopic Review INDICATED 10/15/22 07:04 Urine Culture Comments INDICATED 10/15/22 07:04 - Procedures Procedures: Procedures CATARAC PHACOEMULS/ASPIR (01/28/14) INSERT LENS AT CATAR EXT (01/28/14)
--- NOTE | 2022-10-16 14:49 | XRAY Report ---
PROCEDURE: Chest 1 View X-Ray INDICATIONS: SOB after iv fluids TECHNIQUE: One view of the chest was acquired. COMPARISON: Chest x-ray 12/15/2020 FINDINGS: Surgical changes and devices: None. Lungs and pleura: Minimal bilateral effusions, right greater than right. Increased pulmonary vascula rity. Mediastinum: Mediastinal contours appear normal. Heart size is enlarged. Bones and chest wall: No suspicious bony lesions. Overlying soft tissues appear unremarkable. IMPRESSION: Increased pulmonary vascularity and effusions most consistent with edema. Reviewed by: Jelly Goldman MD on 10/16/2022 2:47 PM PDT Approved by: Jelly Goldman MD on 10/16/2022 2:47 PM PDT Station ID: [id number]
[2022-10-16] MEDS ORDERED: FUROSEMIDE 40 MG/4 ML VIAL IVP STA (14:50)
[2022-10-16] MEDS: ATORVASTATIN 40 MG TABLET PO SCH (20:52)
[2022-10-17 05:33] LABS: BASOPHILS # (AUTO) 0.1 10^3/uL (0.0-0.1); BASOPHILS % (AUTO) 0.6 %; EOSINOPHILS # (AUTO) 0.2 10^3/uL (0.0-0.7); EOSINOPHILS % (AUTO) 1.8 %; HGB - HEMOGLOBIN 10.1 g/dL (12.0-16.0); LYMPHOCYTES # (AUTO) 1.1 10^3/uL (1.5-3.5); LYMPHOCYTES % (AUTO) 11.3 %; MEAN CORPUSCULAR HEMOGLOBIN 30.1 pg (27.0-31.0); MEAN CORPUSCULAR HGB CONC 33.7 g/dL (32.0-36.0); MEAN CORPUSCULAR VOLUME 89.6 fL (81.0-99.0); MEAN PLATELET VOLUME 10.4 fL (7.9-10.8); MONOCYTES # (AUTO) 0.8 10^3/uL (0.0-1.0); MONOCYTES % (AUTO) 8.3 %; NEUTROPHILS # (AUTO) 7.6 10^3/uL (1.5-6.6); NEUTROPHILS % (AUTO) 77.3 %; PLT - PLATELET COUNT 137 10^3/uL (130-450); RED BLOOD COUNT 3.35 10^6/uL (4.20-5.40); RED CELL DISTRIBUTION WIDTH 13.1 % (12.0-15.0); WHITE BLOOD COUNT 9.9 x10^3/uL (4.8-10.8)
[2022-10-17 05:39] LABS: CALCIUM 7.9 mg/dL (8.5-10.3); CREATININE 1.7 mg/dL (0.4-1.0); POTASSIUM 3.2 mmol/L (3.5-5.0)
[2022-10-17] MEDS: SUCRALFATE 1 GM/10 ML UDC PO SCH ×4 (06:20→20:44)
[2022-10-17] MEDS: INSULIN LISPRO 300 UNIT/3 ML PEN SUBQ SCH ×4 (08:10→20:43)
[2022-10-17] MEDS: cefTRIAXone 2 GM in SODIUM CHLORIDE 0.9% MINIBAG 100 ML IV SCH (08:17)
[2022-10-17] MEDS: amLODIPine 5 MG TABLET PO SCH (08:18)
[2022-10-17] MEDS: SODIUM CHLORIDE FLUSH 0.9% 10 ML SYRINGE IVP SCH ×2 (08:18→17:15)
[2022-10-17] MEDS: ASPIRIN EC 81 MG TABLET PO SCH (08:18)
[2022-10-17] MEDS: METOPROLOL SUCCINATE 50 MG TABLET PO SCH (08:18)
[2022-10-17] MEDS: PANTOPRAZOLE 40 MG TABLET PO SCH ×2 (08:18→20:43)
[2022-10-17 10:55] LABS: ESTIMATED AVERAGE GLUCOSE 157 mg/dL (70-100); HEMOGLOBIN A1c% 7.1 % (4.27-6.07)
[2022-10-17] MEDS ORDERED: POTASSIUM CHLORIDE 10 MEQ CAPSULE PO ONE (13:00)
[2022-10-17] MEDS ORDERED: POTASSIUM BICARB 25 MEQ TABLET PO ONE (15:12)
--- NOTE | 2022-10-17 16:44 | PROVIDER PROGRESS NOTE ---
Assessment/Plan - Problem List (1) E coli bacteremia Assessment/Plan: The source is her UTI, since E. coli is growing in the urine as well The sensitivities are back for the E. coli growing in her blood and it is pansensitive. In addition, since being admitted on 10/15, that 10/15 set of blood cultures has bee n negative, after starting IV antibiotics Plan: Continue iv antibx with ceftriaxone. Will plan a 10 day course. I updated a different daughter than yesterday's daughter, at bedside today about her status and the plan 2) Pyelonephritis Right-sided renal stranding is seen on CT imaging (Radiol reports were reviewed). consistent with pyelonephritis Plan: Continue iv antibiotics. Will plan a 10 day course. We will change to oral antibiotics tomorrow and possibly discharge the following day if there is no worsening 3) E. coli UTI Her urine culture is growing raza-sensitive E. coli. The blood culture E. coli had sensitivities done today and it is the same E. coli Plan: Continue iv antibx with ceftriaxone 4) Subdural hematoma The repeat head imaging was unchanged and ED note says discussed with neurosurgery again and no need for transfer. PT and OT evals to start today Plan: Monitor 5) PSVT On 10/16 the patient had a 4-second run of SVT that terminated spontaneously. The rate was 150. Patient was asymptomatic with this. Her EKG was unremarkable, troponins x2 were flat and we ordered an Echo Plan: Await Echo result 6) DM type 2 Her A1c came back at 7.1. She was on Glimiperide at home, but followed no diabetic diet, she ate any sugary mthings she wanted, per info from Hatchery Manager Denae She is very picky and has specific foods that she will eat here Plan: Discussed her poor diet with Hatchery Manager Denae today and we will cancel her d iabetic diet, order a regular diet, cancel fingerstick checks and sliding scale insulin coverage Will not restart Glimperide, as that may cause hypoglycemia in this elderly lady with elevated creat 7) HTN; Plan: We resumed home meds, now that her med list was reconciled by pharmacy 8) CKD Labs were all reviewed. Her creat remains essentially same as prior visits. This CKD is likely due to HTN or DM. She has recvd 1 day of IVF We stopped IV hydration due to the CHF seen on chest x-ray Plan: Avoid nephrotoxins Monitor BMP daily 9) Thrombocytopenia: Plts remain slight worse since the previous ER visit. Unclear age and etiology. We checked a DIC panel which was unremarkable Plan: In view of SDH, will monitor CBC closely. Will avoid anticoagulants at this time. 10) Wheezing Resolved She complained of shortness of breath yesterday 10/16 and wheezing was audible. A CXR showed volume overload. We stopped the Tenormin and resumed metoprolol succinate We stopped iv fluids and gave iv Lasix x1 We checked troponins x2 and they were flat Plan: Awaiting Echo result - Current Meds Current Meds: Current Medications Generic Name Dose Route Start Last Admin Trade Name Freq PRN Reason Stop Dose Admin Amlodipine Besylate 10 mg 10/16/22 09:00 10/17/22 08:18 Amlodipine 5 Mg Tablet PO 10 mg DAILY RENA Administration Aspirin 81 mg 10/17/22 09:00 10/17/22 08:18 Aspirin Ec 81 Mg Tablet PO 81 mg DAILY RENA Administration Atorvastatin Calcium 40 mg 10/16/22 21:00 10/16/22 20:52 Atorvastatin 40 Mg Tablet PO 40 mg QPM RENA Administration Ceftriaxone Sodium 2 gm/ 100 mls @ 200 mls/hr 10/16/22 09:00 10/17/22 08:17 Sodium Chloride IV 200 mls/hr DAILY RENA Administration Insulin Human Lispro 1 - 5 unit 10/15/22 21:00 10/17/22 12:06 Insulin Lispro 300 Unit/3 Ml Pen SUBQ 1 unit 0800,1200,1700,2100 REAN Administration Protocol Metoprolol Succinate 100 mg 10/17/22 09:00 10/17/22 08:18 Metoprolol Succinate 50 Mg Tablet PO 100 mg DAILY RENA Administration Pantoprazole Sodium 40 mg 10/16/22 09:00 10/17/22 08:18 Pantoprazole 40 Mg Tablet PO 40 mg DAILY RENA Administration Sodium Chloride 10 ml 10/16/22 01:00 10/17/22 08:18 Sodium Chloride Flush 0.9% 10 Ml Syringe IVP 10 ml 0100,0900,1700 RENA Administration Sucralfate 1 gm 10/15/22 21:00 10/17/22 11:01 Sucralfate 1 Gm/10 Ml Udc PO 1 gm ACHS RENA Administration - Lab Result Fish Bone Diagrams: 10/17/22 04:34 10/17/22 04:34 - Additional Planning My Orders: My Active Orders 10/16/22 17:52 Telemetry- [RC] Q4HR 10/16/22 21:00 Atorvastatin [Lipitor] 40 mg PO QPM 10/17/22 09:00 Aspirin EC [Ecotrin] 81 mg PO DAILY Metoprolol Succinate [Toprol Xl] 100 mg PO DAILY 10/17/22 Dinner DIET [Regular Diet] [DIET] 10/18/22 05:00 BMP - BASIC METABOLIC PANEL [CHEM] DAILYLAB CBC - COMP BLD CT W/AUTO DIFF [HEME] DAILYLAB 10/19/22 05:00 BMP - BASIC METABOLIC PANEL [CHEM] DAILYLAB CBC - COMP BLD CT W/AUTO DIFF [HEME] DAILYLAB 10/20/22 05:00 BMP - BASIC METABOLIC PANEL [CHEM] DAILYLAB CBC - COMP BLD CT W/AUTO DIFF [HEME] DAILYLAB Subjective - Subjective Patient Reports: Feeling Better, Resting Comfortably, Other (c/o being cold, w ants extra blankets) Objective Vital Signs: Vital Signs - 24 hr 10/16/22 10/16/22 10/17/22 21:13 23:56 01:14 Temperature 37.4 C 37.3 C Heart Rate [ 99 77 Brachial] Respiratory 18 18 Rate Blood Pressure 171/79 H 163/73 H [Right Brachial artery] Blood Pressure 145/66 H [Right Radial artery] O2 Saturation 97 97 10/17/22 10/17/22 10/17/22 04:33 07:33 12:36 Temperature 37.3 C 37.5 C 36.9 C Heart Rate [ 72 69 70 Brachial] Respiratory 16 20 18 Rate Blood Pressure 144/64 H 126/59 L [Right Brachial artery] Blood Pressure 158/64 H [Right Radial artery] O2 Saturation 95 95 99 Oxygen O2 Source Room air I&O (Last 24 Hrs): Intake and Output Totals x24h 10/15/22 10/16/22 10/17/22 23:59 23:59 23:59 Intake Total 700 2560 420 Balance 700 2560 420 General: Alert, Oriented x3 HEENT: Mucous membr. moist/pink Neck: Supple, No JVD Neuro: Alert, Non Focal Cardiovascular: Regular rate, No murmurs Respiratory: No respiratory distress, Breath sounds nml Abdomen: Normal bowel sounds, Soft, No tenderness Extremities: No clubbing, No edema, No tenderness/swelling - Results Results: Laboratory Results WBC 9.9 x10^3/uL (4.8-10.8) 10/17/22 04:34 RBC 3.35 10^6/uL (4.20-5.40) L 10/17/22 04:34 Hgb 10.1 g/dL (12.0-16.0) L 10/17/22 04:34 Hct 30.0 % (37.0-47.0) L 10/17/22 04:34 MCV 89.6 fL (81.0-99.0) 10/17/22 04:34 MCH 30.1 pg (27.0-31.0) 10/17/22 04:34 MCHC 33.7 g/dL (32.0-36.0) 10/17/22 04:34 RDW 13.1 % (12.0-15.0) 10/17/22 04:34 Plt Count 137 10^3/uL (130-450) 10/17/22 04:34 MPV 10.4 fL (7.9-10.8) 10/17/22 04:34 Neut # (Auto) 7.6 10^3/uL (1.5-6.6) H 10/17/22 04:34 Lymph # (Auto) 1.1 10^3/uL (1.5-3.5) L 10/17/22 04:34 [place] # (Auto) 0.8 10^3/uL (0.0-1.0) 10/17/22 04:34 Eos # (Auto) 0.2 10^3/uL (0.0-0.7) 10/17/22 04:34 Baso # (Auto) 0.1 10^3/uL (0.0-0.1) 10/17/22 04:34 Absolute Nucleated RBC 0.00 x10^3/uL 10/17/22 04:34 Total Counted 100 10/16/22 05:55 Band Neuts % (Manual) 10 % (0-10) 10/16/22 05:55 Abnorm Lymph % (Manual) 0 % 10/16/22 05:55 Metamyelocytes % 1 % (-0) H 10/16/22 05:55 Nucleated RBC % 0.0 /100WBC 10/17/22 04:34 Neutrophils # (Manual) 15.5 10^3/uL (1.5-6.6) H 10/16/22 05:55 Lymphocytes # (Manual) 0.7 10^3/uL (1.5-3.5) L 10/16/22 05:55 Monocytes # (Manual) 0.3 10^3/uL (0.0-1.0) 10/16/22 05:55 Eosinophils # (Manual) 0.0 10^3/uL (0-0.7) 10/16/22 05:55 Basophils # (Manual) 0.0 10^3/uL (0-0.1) 10/16/22 05:55 Differential Comment MANUAL DIFFERENTIAL 10/16/22 05:55 Manual Slide Review Indicated 10/15/22 17:28 WBC Morphology NORMAL APPEARANCE (NORMAL) 10/16/22 05:55 Platelet Estimate DECREASED (<130,000) (NORMAL) 10/16/22 05:55 Platelet Morphology NORMAL APPEARANCE (NORMAL) 10/16/22 05:55 RBC Morph Micro Appear NORMAL APPEARANCE (NORMAL) 10/16/22 05:55 PT 14.3 secs (9.9-12.6) H 10/15/22 17:28 INR 1.3 (0.8-1.2) H 10/15/22 17:28 Fibrinogen 725 mg/dL (220-496) H 10/15/22 22:55 D-Dimer > 1050.0 ng/mL (200.0-255.0) H 10/15/22 22:55 Sodium 134 mmol/L (135-145) L 10/17/22 04:34 Potassium 3.2 mmol/L (3.5-5.0) L 10/17/22 04:34 Chloride 109 mmol/L (101-111) 10/17/22 04:34 Carbon Dioxide 19 mmol/L (21-32) L 10/17/22 04:34 Anion Gap 6.0 (6-13) 10/17/22 04:34 BUN 26 mg/dL (6-20) H 10/17/22 04:34 Creatinine 1.7 mg/dL (0.4-1.0) H 10/17/22 04:34 Estimated GFR (MDRD) 29 (>89) L 10/17/22 04:34 Glucose 164 mg/dL (70-100) H 10/17/22 04:34 POC Whole Bld Glucose 170 mg/dL (70 - 100) H 10/17/22 11:13 Estimat Average Glucose 157 mg/dL (70-100) H 10/17/22 04:34 Hemoglobin A1c % 7.1 % (4.27-6.07) H 10/17/22 04:34 Lactic Acid 1.5 mmol/L (0.5-2.2) 10/15/22 17:28 Calcium 7.9 mg/dL (8.5-10.3) L 10/17/22 04:34 Total Bilirubin 0.8 mg/dL (0.2-1.0) 10/15/22 17:28 AST 32 IU/L (10-42) 10/15/22 17:28 ALT 34 IU/L (10-60) 10/15/22 17:28 Alkaline Phosphatase 76 IU/L (42-121) 10/15/22 17:28 Troponin I High Sens 143.3 ng/L (2.3-14.8) H* 10/16/22 18:30 B-Natriuretic Peptide 423 pg/mL (5-100) H 10/17/22 04:34 Total Protein 6.8 g/dL (6.7-8.2) 10/15/22 17:28 Albumin 3.0 g/dL (3.2-5.5) L 10/15/22 17:28 Globulin 3.8 g/dL (2.1-4.2) 10/15/22 17:28 Albumin/Globulin Ratio 0.8 (1.0-2.2) L 10/15/22 17:28 Lipase 38 U/L (22-51) 10/15/22 17:28 Urine Color YELLOW 10/15/22 07:04 Urine Clarity HAZY (CLEAR) 10/15/22 07:04 Urine pH 6.0 PH (5.0-7.5) 10/15/22 07:04 Ur Specific [place] 1.015 (1.002-1.030) 10/15/22 07:04 Urine Protein 100 mg/dL (NEGATIVE) H 10/15/22 07:04 Urine Glucose (UA) NEGATIVE mg/dL (NEGATIVE) 10/15/22 07:04 Urine Ketones TRACE mg/dL (NEGATIVE) 10/15/22 07:04 Urine Occult Blood TRACE-INTA (NEGATIVE) 10/15/22 07:04 Urine Nitrite NEGATIVE (NEGATIVE) 10/15/22 07:04 Urine Bilirubin NEGATIVE (NEGATIVE) 10/15/22 07:04 Urine Urobilinogen 0.2 (NORMAL) E.U./dL (NORMAL) 10/15/22 07:04 Ur Leukocyte Esterase TRACE (NEGATIVE) H 10/15/22 07:04 Urine RBC 6-10 /HPF (0-5) H 10/15/22 07:04 Urine WBC 11-25 /HPF (0-5) H 10/15/22 07:04 Ur Squamous Epith Cells RARE Squamous (<= Few) 10/15/22 07:04 Urine Bacteria Few /HPF (None Seen) 10/15/22 07:04 Ur Microscopic Review INDICATED 10/15/22 07:04 Urine Culture Comments INDICATED 10/15/22 07:04 - Procedures Procedures: Procedures CATARAC PHACOEMULS/ASPIR (01/28/14) INSERT LENS AT CATAR EXT (01/28/14)
[2022-10-17] MEDS ORDERED: MECLIZINE 12.5 MG TABLET PO PRN (19:39)
[2022-10-17] MEDS: ATORVASTATIN 40 MG TABLET PO SCH (20:43)
[2022-10-18] MEDS: SODIUM CHLORIDE FLUSH 0.9% 10 ML SYRINGE IVP SCH ×3 (00:50→17:14)
[2022-10-18 05:04] LABS: BASOPHILS % (AUTO) 0.4 %; EOSINOPHILS % (AUTO) 6.1 %; HCT - HEMATOCRIT 30.2 % (37.0-47.0); HGB - HEMOGLOBIN 10.2 g/dL (12.0-16.0); LYMPHOCYTES % (AUTO) 16.3 %; MEAN CORPUSCULAR HEMOGLOBIN 30.1 pg (27.0-31.0); MEAN CORPUSCULAR HGB CONC 33.8 g/dL (32.0-36.0); MEAN CORPUSCULAR VOLUME 89.1 fL (81.0-99.0); MONOCYTES % (AUTO) 12.1 %; NEUTROPHILS % (AUTO) 63.4 %; PLT - PLATELET COUNT 144 10^3/uL (130-450); RED BLOOD COUNT 3.39 10^6/uL (4.20-5.40); WHITE BLOOD COUNT 8.3 x10^3/uL (4.8-10.8)
[2022-10-18 05:09] LABS: ABNORMAL LYMPHS % (MANUAL) 0 %
[2022-10-18 05:11] LABS: CALCIUM 8.1 mg/dL (8.5-10.3); CREATININE 1.4 mg/dL (0.4-1.0); POTASSIUM 3.5 mmol/L (3.5-5.0)
[2022-10-18 05:23] LABS: BAND NEUTROPHILS % (MANUAL) 1 %; DIFFERENTIAL COMMENT MANUAL DIFFERENTIAL; EOSINOPHILS # (MANUAL) 0.3 10^3/uL (0-0.7); LYMPHOCYTES # (MANUAL) 1.7 10^3/uL (1.5-3.5); LYMPHOCYTES % (MANUAL) 20 %; METAMYELOCYTES % (MANUAL) 1 %; MONOCYTES # (MANUAL) 0.6 10^3/uL (0.0-1.0); NEUTROPHILS # (MANUAL) 5.6 10^3/uL (1.5-6.6); PLATELET ESTIMATE, MANUAL NORMAL (130-450,000) (NORMAL); PLATELET MORPHOLOGY NORMAL APPEARANCE (NORMAL); RBC MORPHOLOGY (MULTIPLE) NORMAL APPEARANCE (NORMAL); WBC MORPHOLOGY (MULTIPLE) NORMAL APPEARANCE (NORMAL)
[2022-10-18] MEDS: SUCRALFATE 1 GM/10 ML UDC PO SCH ×4 (06:34→20:51)
[2022-10-18] MEDS: INSULIN LISPRO 300 UNIT/3 ML PEN SUBQ SCH ×4 (08:18→20:52)
[2022-10-18] MEDS: ASPIRIN EC 81 MG TABLET PO SCH (09:07)
[2022-10-18] MEDS: METOPROLOL SUCCINATE 50 MG TABLET PO SCH (09:07)
[2022-10-18] MEDS: amLODIPine 5 MG TABLET PO SCH (09:07)
[2022-10-18] MEDS: cefTRIAXone 2 GM in SODIUM CHLORIDE 0.9% MINIBAG 100 ML IV SCH (09:08)
[2022-10-18] MEDS: LOSARTAN 50 MG TABLET PO SCH (09:08)
[2022-10-18] MEDS: PANTOPRAZOLE 40 MG TABLET PO SCH ×3 (09:12→20:52)
--- NOTE | 2022-10-18 14:19 | PROVIDER PROGRESS NOTE ---
Assessment/Plan - Problem List (1) E coli bacteremia Assessment/Plan: The source is her UTI, and E. coli is growing in the urine culture as well The sensitivities are back for the E. coli growing in her blood and it is pansensitive. In addition, since being admitted on 10/15, that 10/15 set of blood cultures has been negative, after starting IV antibiotics Plan: We will stop the iv antibx ceftriaxone. We will begin Bactrim DS p.o. twice daily starting this evening. Will plan a total 10 day course of treatment. Estimate a tentative discharge tomorrow if she does not have clinical worsening, therefore she would be on her oral antibiotics through October 25. 2) Pyelonephritis Right-sided renal stranding is seen on CT imaging, consistent with pyelonephritis Plan: Change iv to po antibiotics. Will plan a 10 day course. We possibly discharge tomorrow if there is no clinical worsening I updated the patient regarding the plan for today and possible discharge 3) E. coli UTI Her urine culture is growing raza-sensitive E. coli. The blood culture E. coli had sensitivities done today and it is the same E. coli Plan: Continue antibx plan as above 4) Subdural hematoma The repeat head imaging was unchanged and ED note says discussed with neurosurgery again and no need for transfer. PT and OT evals were done and she is independent Plan: We will request PT to evaluate her today to see if she is independent enough to return back home to live alone 5) DM type 2 Her A1c came back at 7.1. She was on Glimiperide at home, but followed no diabetic diet, she ate any sugary things she wanted, per info from [employer] Erin She is very picky and has specific foods that she will eat here Discussed her poor diet with [employer] Erin and we cancellked her diabetic diet, ordered a regular diet, cancelled sliding scale insulin coverage Will not restart Glimperide here, as that may cause hypoglycemia in this elderly lady with elevated creat Plan: The patient has requested an order for a glucometer, lancets and glucometer strips which I will order at her pharmacy for use after [facility] 6) HTN; Plan: We resumed home meds, now that her med list was reconciled by pharmacy 7) CKD Labs were all reviewed. Her creat remains essentially same as prior visits. This CKD is likely due to HTN or DM. She has recvd 1 day of IVF We stopped IV hydration due to the CHF seen on chest x-ray Plan: Avoid nephrotoxins Monitor BMP daily 8) PSVT Resolved On 10/16 the patient had a 4-second run of SVT that terminated spontaneously. The rate was 150. Patient was asymptomatic with this. Her EKG was unremarkable, troponins x2 were flat, her Echo showed IHSS w/out LVOT obstruction, normal RV size and fnc. 9) Thrombocytopenia: Resolved and improved Plts were worse aty admission since the previous ER visit. We checked a DIC panel which was unremarkable. I suspect this was a phase reactant since she had bacteremia Plan: In view of SDH, will monitor CBC closely. Will avoid anticoagulants at this time. 10) Wheezing Resolved She complained of shortness of breath yesterday 10/16 and wheezing was audible. A CXR showed volume overload. We stopped the Tenormin and resumed metoprolol succinate We stopped iv fluids and gave iv Lasix x1 We checked troponins x2 and they were flat We checked Echo that showed IHSS w/out obstruction to outflow and normal LVEF and RVEF. - Current Meds Current Meds: Current Medications Generic Name Dose Route Start Last Admin Trade Name Freq PRN Reason Stop Dose Admin Amlodipine Besylate 10 mg 10/16/22 09:00 10/18/22 09:07 Amlodipine 5 Mg Tablet PO 10 mg DAILY RENA Administration Aspirin 81 mg 10/17/22 09:00 10/18/22 09:07 Aspirin Ec 81 Mg Tablet PO 81 mg DAILY RENA Administration Atorvastatin Calcium 40 mg 10/16/22 21:00 10/17/22 20:43 Atorvastatin 40 Mg Tablet PO 40 mg QPM RENA Administration Insulin Human Lispro 1 - 5 unit 10/15/22 21:00 10/18/22 12:26 Insulin Lispro 300 Unit/3 Ml Pen SUBQ Not Given 0800,1200,1700,2100 RENA Protocol Losartan Potassium 100 mg 10/18/22 09:00 10/18/22 09:08 Losartan 50 Mg Tablet PO 100 mg DAILY RENA Administration Metoprolol Succinate 100 mg 10/17/22 09:00 10/18/22 09:07 Metoprolol Succinate 50 Mg Tablet PO 100 mg DAILY RENA Administration Pantoprazole Sodium 40 mg 10/17/22 21:00 10/18/22 11:10 Pantoprazole 40 Mg Tablet PO Not Given BID RENA Sodium Chloride 10 ml 10/16/22 01:00 10/18/22 09:12 Sodium Chloride Flush 0.9% 10 Ml Syringe IVP 10 ml 0100,0900,1700 RENA Administration Sucralfate 1 gm 10/15/22 21:00 10/18/22 11:45 Sucralfate 1 Gm/10 Ml Udc PO 1 gm ACHS RENA Administration - Lab Result Fish Bone Diagrams: 10/18/22 04:35 10/18/22 04:35 - Additional Planning My Orders: My Active Orders 10/17/22 Dinner DIET [Regular Diet] [DIET] 10/17/22 19:39 Meclizine [Antivert] 25 mg PO TID PRN 10/17/22 21:00 Pantoprazole [Protonix] 40 mg PO BID 10/18/22 09:00 Losartan [Cozaar] 100 mg PO DAILY 10/18/22 21:00 Sulfamethox/Trimeth 800/160 [Bactrim Ds 800/160] 1 tab PO BID 10/19/22 05:00 BMP - BASIC METABOLIC PANEL [CHEM] DAILYLAB CBC - COMP BLD CT W/AUTO DIFF [HEME] DAILYLAB 10/20/22 05:00 BMP - BASIC METABOLIC PANEL [CHEM] DAILYLAB CBC - COMP BLD CT W/AUTO DIFF [HEME] DAILYLAB Subjective - Subjective Patient Reports: Feeling Better, No Complaints Objective Vital Signs: Vital Signs - 24 hr 10/17/22 10/17/22 10/18/22 16:44 21:00 01:22 Temperature 36.5 C 37.8 C 37.3 C Heart Rate [ 81 88 71 Brachial] Respiratory 16 18 18 Rate Blood Pressure 160/78 H [Left Brachial artery] Blood Pressure 140/62 H 142/75 H [Right Brachial artery] O2 Saturation 99 97 99 10/18/22 10/18/22 10/18/22 04:50 08:33 11:59 Temperature 37.5 C 37.3 C 37.4 C Heart Rate [ 80 74 71 Brachial] Respiratory 16 18 18 Rate Blood Pressure 140/72 H 154/67 H 132/66 H [Left Brachial artery] Blood Pressure [Right Brachial artery] O2 Saturation 99 98 97 Oxygen O2 Source Room air I&O (Last 24 Hrs): Intake and Output Totals x24h 10/16/22 10/17/22 10/18/22 23:59 23:59 23:59 Intake Total 2560 1010 920 Balance 2560 1010 920 General: Alert, Oriented x3 HEENT: Mucous membr. moist/pink Neck: Supple, No JVD Neuro: Alert, Non Focal Cardiovascular: Regular rate Respiratory: No respiratory distress Abdomen: Soft, No tenderness Extremities: No clubbing, No edema, No tenderness/swelling - Results Results: Laboratory Results WBC 8.3 x10^3/uL (4.8-10.8) 10/18/22 04:35 RBC 3.39 10^6/uL (4.20-5.40) L 10/18/22 04:35 Hgb 10.2 g/dL (12.0-16.0) L 10/18/22 04:35 Hct 30.2 % (37.0-47.0) L 10/18/22 04:35 MCV 89.1 fL (81.0-99.0) 10/18/22 04:35 MCH 30.1 pg (27.0-31.0) 10/18/22 04:35 MCHC 33.8 g/dL (32.0-36.0) 10/18/22 04:35 RDW 13.0 % (12.0-15.0) 10/18/22 04:35 Plt Count 144 10^3/uL (130-450) 10/18/22 04:35 MPV 10.0 fL (7.9-10.8) 10/18/22 04:35 Neut # (Auto) Not Reportable 10/18/22 04:35 Lymph # (Auto) Not Reportable 10/18/22 04:35 Pike # (Auto) Not Reportable 10/18/22 04:35 Eos # (Auto) Not Reportable 10/18/22 04:35 Baso # (Auto) Not Reportable 10/18/22 04:35 Absolute Nucleated RBC Not Reportable 10/18/22 04:35 Total Counted 100 10/18/22 04:35 Band Neuts % (Manual) 1 % (0-10) 10/18/22 04:35 Abnorm Lymph % (Manual) 0 % 10/18/22 04:35 Metamyelocytes % 1 % (-0) H 10/18/22 04:35 Nucleated RBC % Not Reportable 10/18/22 04:35 Neutrophils # (Manual) 5.6 10^3/uL (1.5-6.6) 10/18/22 04:35 Lymphocytes # (Manual) 1.7 10^3/uL (1.5-3.5) 10/18/22 04:35 Monocytes # (Manual) 0.6 10^3/uL (0.0-1.0) 10/18/22 04:35 Eosinophils # (Manual) 0.3 10^3/uL (0-0.7) 10/18/22 04:35 Basophils # (Manual) 0.0 10^3/uL (0-0.1) 10/18/22 04:35 Differential Comment MANUAL DIFFERENTIAL 10/18/22 04:35 Manual Slide Review Indicated 10/15/22 17:28 WBC Morphology NORMAL APPEARANCE (NORMAL) 10/18/22 04:35 Platelet Estimate NORMAL (130-450,000) (NORMAL) 10/18/22 04:35 Platelet Morphology NORMAL APPEARANCE (NORMAL) 10/18/22 04:35 RBC Morph Micro Appear NORMAL APPEARANCE (NORMAL) 10/18/22 04:35 PT 14.3 secs (9.9-12.6) H 10/15/22 17:28 INR 1.3 (0.8-1.2) H 10/15/22 17:28 Fibrinogen 725 mg/dL (220-496) H 10/15/22 22:55 D-Dimer > 1050.0 ng/mL (200.0-255.0) H 10/15/22 22:55 Sodium 135 mmol/L (135-145) 10/18/22 04:35 Potassium 3.5 mmol/L (3.5-5.0) 10/18/22 04:35 Chloride 107 mmol/L (101-111) 10/18/22 04:35 Carbon Dioxide 20 mmol/L (21-32) L 10/18/22 04:35 Anion Gap 8.0 (6-13) 10/18/22 04:35 BUN 21 mg/dL (6-20) H 10/18/22 04:35 Creatinine 1.4 mg/dL (0.4-1.0) H 10/18/22 04:35 Estimated GFR (MDRD) 36 (>89) L 10/18/22 04:35 Glucose 149 mg/dL (70-100) H 10/18/22 04:35 POC Whole Bld Glucose 115 mg/dL (70 - 100) H 10/18/22 11:36 Estimat Average Glucose 157 mg/dL (70-100) H 10/17/22 04:34 Hemoglobin A1c % 7.1 % (4.27-6.07) H 10/17/22 04:34 Lactic Acid 1.5 mmol/L (0.5-2.2) 10/15/22 17:28 Calcium 8.1 mg/dL (8.5-10.3) L 10/18/22 04:35 Total Bilirubin 0.8 mg/dL (0.2-1.0) 10/15/22 17:28 AST 32 IU/L (10-42) 10/15/22 17:28 ALT 34 IU/L (10-60) 10/15/22 17:28 Alkaline Phosphatase 76 IU/L (42-121) 10/15/22 17:28 Troponin I High Sens 143.3 ng/L (2.3-14.8) H* 10/16/22 18:30 B-Natriuretic Peptide 423 pg/mL (5-100) H 10/17/22 04:34 Total Protein 6.8 g/dL (6.7-8.2) 10/15/22 17:28 Albumin 3.0 g/dL (3.2-5.5) L 10/15/22 17:28 Globulin 3.8 g/dL (2.1-4.2) 10/15/22 17:28 Albumin/Globulin Ratio 0.8 (1.0-2.2) L 10/15/22 17:28 Lipase 38 U/L (22-51) 10/15/22 17:28 Urine Color YELLOW 10/15/22 07:04 Urine Clarity HAZY (CLEAR) 10/15/22 07:04 Urine pH 6.0 PH (5.0-7.5) 10/15/22 07:04 Ur Specific Lackey 1.015 (1.002-1.030) 10/15/22 07:04 Urine Protein 100 mg/dL (NEGATIVE) H 10/15/22 07:04 Urine Glucose (UA) NEGATIVE mg/dL (NEGATIVE) 10/15/22 07:04 Urine Ketones TRACE mg/dL (NEGATIVE) 10/15/22 07:04 Urine Occult Blood TRACE-INTA (NEGATIVE) 10/15/22 07:04 Urine Nitrite NEGATIVE (NEGATIVE) 10/15/22 07:04 Urine Bilirubin NEGATIVE (NEGATIVE) 10/15/22 07:04 Urine Urobilinogen 0.2 (NORMAL) E.U./dL (NORMAL) 10/15/22 07:04 Ur Leukocyte Esterase TRACE (NEGATIVE) H 10/15/22 07:04 Urine RBC 6-10 /HPF (0-5) H 10/15/22 07:04 Urine WBC 11-25 /HPF (0-5) H 10/15/22 07:04 Ur Squamous Epith Cells RARE Squamous (<= Few) 10/15/22 07:04 Urine Bacteria Few /HPF (None Seen) 10/15/22 07:04 Ur Microscopic Review INDICATED 10/15/22 07:04 Urine Culture Comments INDICATED 10/15/22 07:04 - Procedures Procedures: Procedures CATARAC PHACOEMULS/ASPIR (01/28/14) INSERT LENS AT CATAR EXT (01/28/14)
[2022-10-18] MEDS: SULFAMETH/TRIMETH DS 800/160 MG TABLET PO SCH (20:51)
[2022-10-18] MEDS: ATORVASTATIN 40 MG TABLET PO SCH (20:52)
[2022-10-19] MEDS: SODIUM CHLORIDE FLUSH 0.9% 10 ML SYRINGE IVP SCH ×2 (00:05→08:56)
[2022-10-19 05:00] LABS: BASOPHILS # (AUTO) 0.1 10^3/uL (0.0-0.1); BASOPHILS % (AUTO) 1.2 %; EOSINOPHILS # (AUTO) 0.5 10^3/uL (0.0-0.7); EOSINOPHILS % (AUTO) 7.5 %; HCT - HEMATOCRIT 28.9 % (37.0-47.0); HGB - HEMOGLOBIN 9.7 g/dL (12.0-16.0); LYMPHOCYTES # (AUTO) 1.5 10^3/uL (1.5-3.5); LYMPHOCYTES % (AUTO) 22.8 %; MEAN CORPUSCULAR HEMOGLOBIN 30.1 pg (27.0-31.0); MEAN CORPUSCULAR HGB CONC 33.6 g/dL (32.0-36.0); MEAN CORPUSCULAR VOLUME 89.8 fL (81.0-99.0); MEAN PLATELET VOLUME 9.7 fL (7.9-10.8); MONOCYTES % (AUTO) 15.6 %; NEUTROPHILS # (AUTO) 3.4 10^3/uL (1.5-6.6); NEUTROPHILS % (AUTO) 51.4 %; PLT - PLATELET COUNT 144 10^3/uL (130-450); RED BLOOD COUNT 3.22 10^6/uL (4.20-5.40); RED CELL DISTRIBUTION WIDTH 13.1 % (12.0-15.0); WHITE BLOOD COUNT 6.7 x10^3/uL (4.8-10.8)
[2022-10-19 05:06] LABS: CALCIUM 8.3 mg/dL (8.5-10.3); CREATININE 1.5 mg/dL (0.4-1.0); POTASSIUM 3.5 mmol/L (3.5-5.0)
[2022-10-19] MEDS: SUCRALFATE 1 GM/10 ML UDC PO SCH (06:29)
[2022-10-19 08:25] VITALS: BP 162/67
[2022-10-19] MEDS: INSULIN LISPRO 300 UNIT/3 ML PEN SUBQ SCH (08:26)
[2022-10-19] MEDS: SULFAMETH/TRIMETH DS 800/160 MG TABLET PO SCH (08:27)
[2022-10-19] MEDS: ASPIRIN EC 81 MG TABLET PO SCH (08:27)
[2022-10-19] MEDS: METOPROLOL SUCCINATE 50 MG TABLET PO SCH (08:27)
[2022-10-19] MEDS: PANTOPRAZOLE 40 MG TABLET PO SCH (08:28)
[2022-10-19] MEDS: LOSARTAN 50 MG TABLET PO SCH (08:28)
--- NOTE | 2022-10-19 08:51 | Discharge Plan ---
Discharge Plan Problem Reviewed?: Yes Disposition: Home, Self Care Condition: Stable Prescriptions: Sulfamethox/Trimeth 800/160 [Bactrim Ds] 1 tab PO BID 7 Days #14 tab Blood-Glucose Meter [Glucometer] 1 each MC ACHS #1 each Lancets/Blood Glucose Strips [Pogo Automatic Test Cartridge] 1 each SQ ACHS #120 ea Blood Pressure Test Kit-Medium [Pro Health Bp Monitor] 1 each MC DAILY #1 kit Diet: Diabetic Activity Restrictions: Activity as Tolerated Shower Restrictions: No Driving Restrictions: No Instruction Topics: ED Kidney Infec Female Health Concerns: The patient was hospitalized due to an infection that has spread to her bloodstream. The source was a urinary tract infection in her kidney. The patient completed several days of IV antibiotics. She has now transitioned over to oral antibiotics and is being discharged home today. Please follow the current list of medications that the patient should be taking. There are several more days of pill antibiotics to take. Please resume all the other usual pre-Hospital medications. The patient requested an order be placed for a glucometer, lancets and diabetic test strips, as well as a blood pressure cuff, all of which have been ordered. All new prescriptions were sent to her [facility] pharmacy in [place]. Patient should have a hospital follow-up follow-up appointment with her Primary Care Provider in the next 1 to 2-weeks. Plan of Treatment: As above. Care Goals: Improvement in symptoms and stabilization are the goals. Assessment: The patient and family understand and are agreeable with the plan. Additional Instructions or Follow Up instructions: If the patient should have any new or worsening symptoms, call the primary care provider for advice, or come to the ER. No Smoking: If you smoke, Please STOP! Call for help. Follow-up with: Finn Romero MD [Primary Care Provider] -
--- NOTE | 2022-10-19 08:53 | DISCHARGE SUMMARY ---
Discharge Summary Admit Date: 10/15/22 Discharge Date: 10/19/22 Discharging Provider: Dr Laura Marroquin Primary Care Provider: Dr Finn Romero Code Status: Attempt Resuscitation Condition at Discharge: Stable Discharge Disposition: 01 Home, Self Care - HPI History of Present Illness: From the Telemedicine provider H&P: 85 y/o F who was called back to come to be admitted to the hospital after her cultures came back positive for E coli, after a visit she had yesterday to the ER and was found to have pylonephritis. Today she fees better but still weak and some n/v. no chills. no headache or focal weakness. There is no fever. Yesterday she was found to have a small SDH too, for which a phone consult with neurosurg was done and pt was observed and cleared to be dischaged home then. A repeat head image was done and it was unchanged and ED note says this was discussed with neurosurgery again and no need for transfer to a larger hospital. - HOSPITAL COURSE Hospital Course: 1) E coli bacteremia The source was her UTI, and E. coli was growing in the urine culture as well. T his E. coli was pansensitive. The / set of blood cultures was negative, after starting IV antibiotics. We stopped the iv ceftriaxone and started Bactrim DS p.o. twice daily. She was discharged home to take a total 10 day course of treatment, therefore she should be on her oral antibiotics through October 25. 2) Pyelonephritis Right-sided renal kidney stranding was seen on CT imaging, consistent with pyelonephritis. 3) E. coli UTI Her urine culture grew out raza-sensitive E. coli. Her iv antibx was changed to oral and she was discharged home to take a course of Bactrim (as in #1). 4) Subdural hematoma The repeat head imaging was unchanged and ED note says discussed with neurosurgery again and no need for transfer. PT and OT evals were done and she was independent and was felt safe to return back home, where she lives alone. 5) DM type 2 Her A1c came back at 7.1. She was on Glimiperide at home, but followed no diabetic diet, since she ate many sugary things. She was a very picky eater and had specific foods that she did not want. The vice president pharmacy monitored her and ultimately we cancelled her diabetic diet, and ordered a regular diet. She was on sliding scale insulin coverage. At discharge, she was okayed to restart her Glimepiride. She requested an order for a glucometer, lancets and glucometer strips, which I ordered at her pharmacy for use after discharge. 6) HTN; We resumed her home meds. 7) CKD Her creat was similar to prior visits. Her CKD is likely due to HTN or DM. 8) PSVT On 10/16 the patient had a 4-second run of SVT that terminated spontaneously. The rate was 150. Patient was asymptomatic with this. Her EKG was checked and was unremarkable, troponins x2 were flat, and her Echo showed IHSS w/out LVOT obstruction, normal RV size and fnc. Her beta-marcelle dose was resumed and no further SVT was seen. 9) Thrombocytopenia: Plts were worse at this admission since the previous day's ER visit. We checked a DIC panel which was unremarkable. I suspect this was a phase reactant since she had bacteremia. In view of her subdural hematoma, we monitored her CBC closely. The plt count improved into a normal range. 10) Wheezing She complained of shortness of breath on 10/16 and had wheezing, on her 2nd day, after getting iv fluids. A CXR showed volume overload. We stopped iv fluids and gave iv Lasix x1, and she improved. We checked troponins x2 and they were flat, checked an Echo that showed IHSS w/out outflow tract obstruction and she had a normal LVEF and RVEF. - ALLERGIES Allergies/Adverse Reactions: Allergies Allergy/AdvReac Type Severity Reaction Status Date / Time No Known Drug Allergies Allergy Verified 10/15/22 17:44 - MEDICATIONS Home Medications: Ambulatory Orders Medication Instructions Recorded Confirmed Losartan Potassium [Cozaar] 100 mg PO DAILY 12/15/20 10/16/22 Aspirin [Aspirin EC] 81 mg PO DAILY 10/16/22 10/16/22 Atorvastatin Calcium 40 mg PO QPM 10/16/22 10/16/22 Esomeprazole Magnesium [Nexium] 40 mg PO QDAC 10/16/22 10/16/22 Glimepiride 1 mg PO DAILY 10/16/22 10/16/22 Meclizine HCl [Dramamine] 25 mg PO TID PRN 10/16/22 10/16/22 Metoprolol Succinate 100 mg PO DAILY 10/16/22 10/16/22 Blood Pressure Test Kit-Medium 1 each MC DAILY #1 kit 10/18/22 [Pro Health Bp Monitor] Blood-Glucose Meter [Glucometer] 1 each MC ACHS #1 each 10/18/22 Lancets/Blood Glucose Strips [Pogo 1 each SQ ACHS #120 ea 10/18/22 Automatic Test Cartridge] Sucralfate [Carafate] 1 gm PO ACHS ea 10/19/22 Sulfamethox/Trimeth 800/160 1 tab PO BID 7 Days #14 tab 10/19/22 [Bactrim Ds] amLODIPine [Norvasc] 10 mg PO DAILY tab 10/19/22 Amlodipine Besylate [Norvasc] 10 mg PO DAILY #30 tablet 10/20/22 Sucralfate [Carafate] 1 gm PO ACHS #28 ea 10/20/22 - PHYSICAL EXAM AT DISCHARGE General Appearance: positive: No acute distress, Alert Eyes Bilateral: positive: Normal inspection, EOMI ENT: positive: ENT inspection nml, No signs of dehydration Neck: positive: Nml inspection, No JVD Respiratory: positive: No respiratory distress, Breath sounds nml Cardiovascular: positive: Regular rate & rhythm, No murmur Abdomen: positive: Non-tender, Nml bowel sounds, No distention Skin: positive: Warm, Dry Extremities: positive: Non-tender, No pedal edema Neurologic/Psychiatric: positive: Oriented x3, Motor nml - LABS Result Diagrams: 10/19/22 04:48 10/19/22 04:48 - DIAGNOSTIC IMAGING Diagnostic Imaging Results: Final report reviewed - FOLLOW UP Follow Up: Patient should have a hospital follow-up follow-up appointment with her Primary Care Provider in the next 1 to 2-weeks. - TIME SPENT Time Spent in Discharge (Minutes): 40
[2022-10-19] MEDS: amLODIPine 5 MG TABLET PO SCH (08:56)
== END 2022-10-19 10:35 | disposition home or self-care (01) | DRG 689 ==
LOC: ED 17:12 → MS2 20:15
PROVIDERS: ADMIT Hospitalist; ATTEND Internal Medicine
DX: N12 Tubulo-interstitial nephritis, not specified as acute or chronic (principal); I62.00 Nontraumatic subdural hemorrhage, unspecified; I13.0 Hypertensive heart and chronic kidney disease with heart failure and stage 1 through stage 4 chronic kidney disease, or unspecified chronic kidney disease; R53.1 Weakness; I10 Essential (primary) hypertension; E11.9 Type 2 diabetes mellitus without complications; I47.1 Supraventricular tachycardia; B96.20 Unspecified Escherichia coli [E. coli] as the cause of diseases classified elsewhere; Z79.84 Long term (current) use of oral hypoglycemic drugs; E11.22 Type 2 diabetes mellitus with diabetic chronic kidney disease; N18.9 Chronic kidney disease, unspecified; I50.9 Heart failure, unspecified; D69.6 Thrombocytopenia, unspecified; N28.9 Disorder of kidney and ureter, unspecified; R06.2 Wheezing
CPT/HCPCS: 36415; 70450; 71045; 80048; 80053; 81001; 83036; 83605; 83690; 83880; 84484; 85025; 85379; 85384; 85610; 87040; 87086; 93005; 93306; 96365; 97116; 97161; 97166; 97530; 97535; 99285; A9270; 81003

== ENCOUNTER 2022-10-30 10:39 | Outpatient (CLI) | payer MEDICARE, MEDICAID ==
[2022-10-30 17:43] LABS: BILIRUBIN,URINE NEGATIVE (NEGATIVE); GLUCOSE, URINE (UA) NEGATIVE (NEGATIVE); KETONES,URINE (UA) NEGATIVE (NEGATIVE); LEUKOCYTE ESTERASE, URINE NEGATIVE (NEGATIVE); NITRITE,URINE NEGATIVE (NEGATIVE); OCCULT BLOOD,URINE NEGATIVE (NEGATIVE); PROTEIN,URINE TRACE mg/dL (NEGATIVE); UROBILINOGEN,URINE 0.2 (NORMAL) E.U./dL (NORMAL)
[2022-10-30 17:45] LABS: CLARITY,URINE CLEAR (CLEAR)
== END 2022-10-30 10:40 | disposition home or self-care (01) ==
LOC: LAB.N 10:39
PROVIDERS: ATTEND Family Medicine
DX: N12 Tubulo-interstitial nephritis, not specified as acute or chronic (principal)
CPT/HCPCS: 81001; 81003; 87086

== ENCOUNTER 2022-11-04 13:12 | Outpatient (CLI) | payer MEDICARE, MEDICAID ==
--- NOTE | 2022-11-04 15:57 | CT Report ---
PROCEDURE: [Brain without contrast INDICATIONS: SUBDURAL HEMATOMA TECHNIQUE: Noncontrast 4.5 mm thick angled axial sections acquired from the foramen magnum to the vertex. For r adiation dose reduction, the following was used: automated exposure control, adjustment of mA and/or kV according to patient size. COMPARISON: None. FINDINGS: Image quality: Excellent. CSF spaces: Basal cisterns are patent. No extra-axial fluid collections. Ventricles are normal in size and shape. Brain: Atrophy and chronic ischemic change noted to. Thin subdural hematoma layering over the right t entorial leaf now measures r 2 mm, previously 5 mm Skull and face: Calvarium and visualized facial bones are intact, without suspicious lesions. Sinuses: Visualized sinuses and mastoids are clear. IMPRESSION: Persistent but improving right tentorial subdural hematoma. Reviewed by: Franky Dominguez MD on 11/04/2022 2:56 PM AKDT Approved by: Franky Dominguez MD on 11/04/2022 2:56 PM AKDT Station ID: [id number]
== END 2022-11-04 13:13 | disposition home or self-care (01) ==
LOC: DI 13:12
PROVIDERS: ATTEND Family Medicine
DX: I62.00 Nontraumatic subdural hemorrhage, unspecified (principal)

== ENCOUNTER 2023-07-12 09:03 | Outpatient (CLI) | payer MEDICARE, MEDICAID ==
[2023-07-12 11:56] LABS: BASOPHILS # (AUTO) 0.1 10^3/uL (0.0-0.1); BASOPHILS % (AUTO) 1.9 %; EOSINOPHILS # (AUTO) 0.6 10^3/uL (0.0-0.7); EOSINOPHILS % (AUTO) 11.8 %; HCT - HEMATOCRIT 38.4 % (37.0-47.0); HGB - HEMOGLOBIN 12.7 g/dL (12.0-16.0); LYMPHOCYTES % (AUTO) 38.6 %; MEAN CORPUSCULAR HEMOGLOBIN 31.2 pg (27.0-31.0); MEAN CORPUSCULAR HGB CONC 33.1 g/dL (32.0-36.0); MEAN CORPUSCULAR VOLUME 94.3 fL (81.0-99.0); MEAN PLATELET VOLUME 10.4 fL (7.9-10.8); MONOCYTES # (AUTO) 0.4 10^3/uL (0.0-1.0); MONOCYTES % (AUTO) 8.2 %; NEUTROPHILS % (AUTO) 39.1 %; PLT - PLATELET COUNT 204 10^3/uL (130-450); RED BLOOD COUNT 4.07 10^6/uL (4.20-5.40); RED CELL DISTRIBUTION WIDTH 12.8 % (12.0-15.0); WHITE BLOOD COUNT 5.2 x10^3/uL (4.8-10.8)
[2023-07-12 12:10] LABS: ESTIMATED AVERAGE GLUCOSE 146 mg/dL (70-100); HEMOGLOBIN A1c% 6.7 % (4.27-6.07)
[2023-07-12 12:12] LABS: CREATININE,URINE 58.2 mg/dL
[2023-07-12 12:18] LABS: ALBUMIN 4.6 g/dL (3.2-5.5); ALBUMIN/GLOBULIN RATIO 1.2 (1.0-2.2); ALKALINE PHOSPHATASE 63 IU/L (42-121); ALT ALANINE AMINOTRANSFERASE 15 IU/L (10-60); AST ASPARTATE AMINOTRANSFERASE 21 IU/L (10-42); BILIRUBIN,TOTAL 0.4 mg/dL (0.2-1.0); BUN - BLOOD UREA NITROGEN 26 mg/dL (6-20); CALCIUM 9.8 mg/dL (8.5-10.3); CARBON DIOXIDE - CO2 22 mmol/L (21-32); CHLORIDE 109 mmol/L (101-111); CHOLESTEROL 201 mg/dL; CREATININE 1.4 mg/dL (0.6-1.3); GFR - MDRD 36 (>89); GLUCOSE 124 mg/dL (74-104); HDL CHOLESTEROL 50 mg/dL; LDL CHOLESTEROL,CALCULATED 110 mg/dL; LDL/HDL RATIO 2.2 (<4.4); POTASSIUM 4.5 mmol/L (3.5-4.5); SODIUM 140 mmol/L (135-145); TOTAL PROTEIN 8.3 g/dL (6.4-8.9); TRIGLYCERIDES 207 mg/dL (48-352); VLDL CHOLESTEROL 41 mg/dL
[2023-07-12 12:23] LABS: MICROALBUMIN,URINE 53.6 mg/dL
== END 2023-07-12 09:04 | disposition home or self-care (01) ==
LOC: LAB.N 09:03
PROVIDERS: ATTEND Internal Medicine
DX: I12.9 Hypertensive chronic kidney disease with stage 1 through stage 4 chronic kidney disease, or unspecified chronic kidney disease (principal); E11.22 Type 2 diabetes mellitus with diabetic chronic kidney disease; N18.9 Chronic kidney disease, unspecified; E78.5 Hyperlipidemia, unspecified; Z13.29 Encounter for screening for other suspected endocrine disorder
CPT/HCPCS: 36415; 80053; 80061; 82043; 82570; 83036; 83721; 84443; 85025

== ENCOUNTER 2025-03-01 20:33 | Observation (INO) ==
--- NOTE | 2025-03-01 20:54 | CT Report ---
PROCEDURE: CT Head W/O Stroke Protocol INDICATIONS: right facial droop TECHNIQUE: Noncontrast angled axial sections acquired from the foramen magnum to the vertex, with coronal reformats. For radiation dose reduction, the following was used: automated exposure control, adjustment of mA and/or kV according to patient size. COMPARISON: CT head dated 11/04/2022. FINDINGS: Image quality: Excellent. CSF spaces: Basal cisterns are patent. No extra-axial fluid collections. Ventricles are normal in size and shape. Brain: No midline shift. No intracranial mass effect or hemorrhage. Akins- white matter interface is normal. Skull and face: Calvarium and visualized facial bones are intact, without suspicious lesions. Sinuses: Visualized sinuses and mastoids are clear. IMPRESSION: No acute intracranial pathology. Age-related volume loss and mild to moderate white matter small vessel chronic ischemic changes . Findings were discussed with ordering provider at the time of dictation. This study fulfills neurological imaging criteria for inclusion or exclusion of acute stroke therapies based on available published neurological imaging guidelines. Reviewed by: Gerardo Terrell MD on 03/01/2025 8:53 PM PDT Approved by: Gerardo Terrell MD on 03/01/2025 8:53 PM PDT Station ID: [id number]
[2025-03-01 20:55] LABS: HCT - HEMATOCRIT 35.6 % (37.0-47.0); HGB - HEMOGLOBIN 11.7 g/dL (12.0-16.0); MEAN PLATELET VOLUME 9.5 fL (7.9-10.8); NRBC ABSOLUTE COUNT (AUTO) 0.00 x10^3/uL; NUCLEATED RED BLOOD CELLS AUTO 0.0 /100WBC; PLT - PLATELET COUNT 186 10^3/uL (130-450); RED CELL DISTRIBUTION WIDTH 12.7 % (12.0-15.0)
--- NOTE | 2025-03-01 21:04 | CT Report ---
PROCEDURE: CT Angio Head/Neck INDICATIONS: right facial droop CONTRAST: OMNI 300 100ML TECHNIQUE: After the administration of intravenous contrast, images werenacquired from the aortic arch through the [place]. 3-dimensional icnatkx-negurzpol-ntxiupwrsd (MIP) and volume rendering reformats were acquired of the central intracranial vasculature and neck separately. COMPARISON: 12/15/2020. FINDINGS: Image quality: Diagnostic. Cerebral CT Angiogram: Internal carotid arteries: No acute findings. Mild atherosclerotic disease is seen in intracranial portion of bilateral internal carotid arteries with no significant stenosis. No occlusion. No aneurysm. Anterior cerebral arteries: Unremarkable. No significant stenosis. No occlusion. No aneurysm. Middle cerebral arteries: Unremarkable. No significant stenosis. No occlusion. No aneurysm. Posterior cerebral arteries: Unremarkable. No significant stenosis. No occlusion. No aneurysm. Basilar artery: Unremarkable. No significant stenosis. No occlusion. No aneurysm. Vertebral arteries: Nonvisualization of distal intracranial portion of right vertebral artery. Left intracranial vertebral artery shows no hemodynamically significant stenosis. Dural venous sinuses: Unremarkable given phase of enhancement. Other: Arterial phase appearance of the brain parenchyma is unremarkable. Neck CT Angiogram: Internal carotid arteries: Atherosclerotic calcifications are noted involving origin of bilateral internal carotid arteries without hemodynamically significant stenosis. No dissection or occlusion. Common carotid arteries: Unremarkable. No significant stenosis. No dissection or occlusion. External carotid arteries: Unremarkable. No occlusion. Vertebral arteries: No hemodynamically significant stenosis or aneurysm is seen in left vertebral artery. 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 There is also high-grade stenosis to occlusion involving distal right vertebral artery at approximately C3 level. Aortic Arch and Mediastinum: Partially visualized aortic arch unremarkable without evidence of aneurysm. Origins of the great vessels unremarkable. Other: Arterial phase soft tissues of the neck and chest are unremarkable. IMPRESSION: 1. 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 2. Mild atherosclerotic disease involving origins of bilateral internal carotid arteries without hemodynamically significant stenosis. 3. No other hemodynamically significant stenosis or aneurysm is seen in the intracranial circulation. 4. 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 No other hemodynamically significant stenosis is seen in rest of the neck arteries. The estimate of stenosis included in the report of the imaging study was calculated using the NASCET method Reviewed by: Gerardo Terrell MD on 03/01/2025 9:02 PM PDT Approved by: Gerardo Terrell MD on 03/01/2025 9:02 PM PDT Station ID: [id number]
[2025-03-01 21:11] LABS: INR 1.1 (0.8-1.2); PT - PROTHROMBIN TIME 12.2 secs (9.9-12.6)
--- OUTSIDE RECORDS SUMMARY | 2025-03-01 21:11 | EXTERNAL MEDICAL SUMMARY RPT | Continuity of Care Document ---
Author Organization [facility] [address] [facility] [address] [place] [id number] Phone Problems date description facility 2025 08:14 Other bacterial infections of u nspecified site [facility] 2025 08:14 Pruritus, unspecified [facility] 2025 08:14 Low back pain, unspecified [facility] 2025 08:14 Other specified soft tissue dis orders [facility] 2025 08:14 Unspecified abdominal pain [facility] 2025 08:14 Localized edema [facility] 2025 10:51 Other hypotension [facility] 2025 10:51 Local infection of t he skin and subcutaneous tissue, unspecified [facility] 2025 10:51 Edema, unspecified [facility] 2025 10:51 Encounter for genera l adult medical examination without abnormal findings [facility] 2025 15:44 Other hypotension [facility] 2025-02-27 00:04 Edema, unspecified [facility] 2025-02-27 00:04 Encounter for genera l adult medical examination without abnormal findings [facility] Results/Labs test date facility value unit notes Result panel 1 RBC,URINE 2025 10:42 [facility] 0-5 /hpf (missing) NUCLEATED RED BLOOD CELLS AUTO 2025 10:42 [facility] 0.0 /100wbc (missing) NRBC ABSOLUTE COUNT (AUTO) 2025 10:42 [facility] 0.00 x10 3/ul (missing) BASOPHILS # (AUTO) 2025 10:42 [facility] 0.1 10 3/ul (missing) UROBILINOGEN,URINE 2025 10:42 [facility] 0.2 (NORMAL) e.u./dl (missing) BILIRUBIN,TOTAL 2025 10:42 [facility] 0.4 mg/dl As of January 2023 testing method has changed, this may include reference ranges. EOSINOPHILS # (AUTO) 2025 10:42 [facility] 0.5 10 3/ul (missing) MONOCYTES # (AUTO) 2025 10:42 [facility] 0.8 10 3/ul (missing) SPECIFIC GRAVITY,URINE 2025 10:42 [facility] 1.005 (missing) (missing) ALBUMIN/GLOBULIN RATIO 2025 10:42 [facility] 1.3 (missing) (missing) LYMPHOCYTES # (AUTO) 2025 10:42 [facility] 1.5 10 3/ul (missing) CREATININE 2025 10:42 [facility] 1.5 mg/dl As of January 2023 testing method has changed, this may include reference ranges. MEAN PLATELET VOLUME 2025 10:42 [facility] 10.5 fl (missing) WBC,URINE 2025 10:42 [facility] 11-25 /hpf (missing) HGB - HEMOGLOBIN 2025 10:42 [facility] 11.7 g/dl (missing) CHLORIDE 2025 10:42 [facility] 110 mmol/l As of January 2023 testing method has changed, this may include reference ranges. RED CELL DISTRIBUTION WIDTH 2025 10:42 [facility] 13.3 % (missing) SODIUM 2025 10:42 [facility] 137 mmol/l Unknown ESTIMATED AVERAGE GLUCOSE 2025 10:42 [facility] 146 mg/dl (missing) ALT ALANINE AMINOTRANSFERASE 2025 10:42 [facility] 15 iu/l As of January 2023 testing method has changed, this may include reference ranges. TRIGLYCERIDES 2025 10:42 [facility] 171 mg/dl Social History date description facility
[2025-03-01 21:12] LABS: BUN - BLOOD UREA NITROGEN 19.0 mg/dL (6-20); CARBON DIOXIDE - CO2 25.0 mmol/L (21-32); CREATININE 1.5 mg/dL (0.6-1.3); GFR - MDRD 33.0 (>89)
[2025-03-02] MEDS ORDERED: BENZONATATE 100 MG CAPSULE PO PRN (00:40)
[2025-03-02] MEDS ORDERED: ALBUTEROL 1 PUFF INH PRN (00:40)
[2025-03-02] MEDS ORDERED: NITROGLYCERIN SL 0.4 MG TABLET SL PRN (00:40)
[2025-03-02] MEDS ORDERED: MELATONIN 3 MG TABLET PO PRN (00:40)
[2025-03-02] MEDS ORDERED: PHENOL THROAT SPRAY 177 ML MM PRN (00:40)
[2025-03-02] MEDS ORDERED: ONDANSETRON 4 MG/2 ML VIAL IVP PRN (00:40)
--- NOTE | 2025-03-02 00:48 | HISTORY & PHYSICAL EXAMINATION ---
Chief Complaint Chief Complaint Chief Complaint: dysarthria, facial droop History of Present Illness History of Present Illness HPI Comment/Other: details obtained from discussion with ed staff: pt was seen earlier in last 24 h d/t concerns for sob, and w/u was overall ok and pt was discharged home from ED. around 8pm, pt developed slurred speech + R sided facial droop with h/o similar symptoms in the past. no falls. no extremity weakness. no chest pain, fevers, chills reported. no further sob. pt had w/u in ed including tele-neurology consultation who advises observation stay + mri. 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 Review of Systems pt very tired / hard of hearing --> unable to fully obtain appropriately Status of ROS: unobtainable due to medical condition PFSH Active Problems All Active Problems (Updated 03/01/25 @ 22:04 by Andres Khan MD) Cerebrovascular accident (CVA) (Acute) Shortness of breath (Acute) Superficial skin infection (Acute) Venous stasis dermatitis (Acute) Venous insufficiency (Acute) Other hypotension (Acute) Eczema (Acute) Edema (Acute) Type 2 diabetes mellitus with chronic kidney disease, without long-term current use of insulin (Acute) Proteinuria due to type 2 diabetes mellitus (Acute) 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 (Acute) Mixed hyperlipidemia (Acute) GERD (gastroesophageal reflux disease) (Acute) Primary osteoarthritis of hips, bilateral (Acute) Neural hearing loss, bilateral (Acute) Medical History Medical History 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, 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 Pyelonephritis 10/2022, hospitalized Subdural hematoma, post-traumatic 10/2022, fall home, managed w/o surgery Surgical History Surgical History H/O bilateral cataract extraction Family History Family History Mother CAD (coronary artery disease) Congenital heart failure Father Congenital heart failure Social History Social History (Updated 02/26/25 @ 09:20 by Jesi Esteban) Smoking Status: Never smoker Second hand tobacco smoke exposure: No Do you dip or chew tobacco?: No Do you vape?: No Living arrangement: At home Marital Status: Living Condition: Alone More Information: 10 children Support Person: Yes Relationship: Child Physical Activity: Running Level: Independent Do you feel safe in your home environment?: Yes Suffered physical, verbal, emotional, or financial abuse?: No History of Abuse: No ETOH Use: None Frequency: Occasional ETOH Use Details: < 1 drink/week Substance Use: denies use Are you sexually active?: No 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 Service: No POLST Patient has POLST: No Meds/Allgy Home Medications Ambulatory Orders Medication Instructions Recorded Confirmed mupirocin 2 % topical ointment 1 applic topical BID 10 days #1 ea 02/26/25 02/26/25 ([facility]) Allergies Allergies Allergy/AdvReac Type Severity Reaction Status Date / Time hydrocodone (From Vicodin) Allergy Severe Emesis Verified 02/28/25 08:50 penicillin V Allergy Severe Itching Verified 02/28/25 08:50 propranolol AdvReac Mild Nausea Verified 02/28/25 08:50 Exam Exam Vital Signs: Vital Signs x48h Temp Pulse Resp BP Pulse Ox 03/02/25 00:34 63 16 157/63 H 94 03/02/25 00:04 58 L 17 131/81 H 95 03/01/25 23:49 60 17 128/68 94 03/01/25 23:34 67 18 150/62 H 93 03/01/25 23:04 62 16 144/64 H 95 03/01/25 22:49 61 16 130/75 96 03/01/25 22:34 62 16 150/62 H 96 03/01/25 21:09 78 18 171/67 H 95 03/01/25 20:51 36.1 C L 70 20 171/67 H 94 gen - asleep, son @ bedside. pt wakes up and falls back asleep again. nad heent - R sided facial droop noted, no trauma seen heart - details per ed charting lungs - no obvious distress or retractions abd - no obvious distension msk - no trauma. rom intact Conclusion/Plan Problem List (1) Cerebrovascular accident (CVA): Lab Results 03/01/25 20:50 03/01/25 20:50 Other Other Results/Comments: pt with - - dysarthria + facial droop in setting of cva vertebral artery occlusion on CTA head rom of extremities ok h/o tia per son asa started check a1c, tsh, lipids mri and 2d echo ordered - hyperglycemia (>200) no reported or known h/o t2dm check a1c, tsh, lipids start ssi - nalini vs ckd check renal sono h/o reported htn per son hypertensive / diabetic nephropathy continue gentle IVF - sob resolved imaging without acute pulm pathology on RA, no distress check viral panel - elevated bnp imaging w/o acute pathology may have contributed to brief sob 2d echo ordered further orders per clinical course
[2025-03-02] MEDS: SODIUM CHLORIDE 0.9% 1,000 ML IV SCH (01:30)
[2025-03-02 03:40] LABS: GLUCOSE, URINE (UA) NEGATIVE (NEGATIVE); KETONES,URINE (UA) NEGATIVE (NEGATIVE); OCCULT BLOOD,URINE SMALL (NEGATIVE)
[2025-03-02 03:41] LABS: SQUAMOUS EPITHELIAL CELL,UR RARE Squamous (<= Few)
[2025-03-02 04:19] LABS: INFLUENZA A- RESP PCR PANEL NOT DETECTED; INFLUENZA B - RESP PCR PANEL NOT DETECTED; RSV- RESP PCR PANEL NOT DETECTED; SARS-CoV-2 -RESP PCR PANEL NOT DETECTED
--- NOTE | 2025-03-02 04:21 | ED Physician Documentation ---
PD HPI [facility]OCAL [facility]O Stated complaint Stated Complaint: CODE STROKE Chief complaint Chief Complaint: Neuro Additional information Additional information: BIBA. HPI from EMS. Later in ED stay, family arrives and is at bedside and provides further HPI. Patient was treated and released from this emergency department yesterday for shortness of breath. Family says that after she got home from the emergency department, at approximately 7 PM she began to exhibit right facial droop, difficulty speaking, and complaining of difficulty with swallowing both food and liquids. Patient is very hard of hearing and speaks Tagalog; family is at bedside translating for the patient. Meds/Allgy Home Medications Ambulatory Orders Medication Instructions Recorded Confirmed mupirocin 2 % topical ointment 1 applic topical BID 10 days #1 ea 02/26/25 02/26/25 ([facility]) amlodipine 2.5 mg tablet 2.5 mg PO DAILY 03/02/25 amlodipine 5 mg tablet 5 mg PO DAILY 03/02/25 glimepiride 1 mg tablet 1 mg PO DAILY 03/02/25 losartan 50 mg tablet 50 mg PO DAILY 03/02/25 metoprolol succinate 100 mg 100 mg PO DAILY 03/02/25 tablet,extended release 24 hr pantoprazole 40 mg tablet,delayed 40 mg PO DAILY 03/02 release Allergies Allergies Allergy/AdvReac Type Severity Reaction Status Date / Time hydrocodone (From Vicodin) Allergy Severe Emesis Verified 02/28/25 08:50 penicillin V Allergy Severe Itching Verified 02/28/25 08:50 propranolol AdvReac Mild Nausea Verified 02/28/25 08:50 PFSH Active Problems All Active Problems (Updated 03/01/25 @ 22:04 by Andres Khan MD) Cerebrovascular accident (CVA) (Acute) Shortness of breath (Acute) Superficial skin infection (Acute) Venous stasis dermatitis (Acute) Venous insufficiency (Acute) Other hypotension (Acute) Eczema (Acute) Edema (Acute) Type 2 diabetes mellitus with chronic kidney disease, without long-term current use of insulin (Acute) Proteinuria due to type 2 diabetes mellitus (Acute) 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 (Acute) Mixed hyperlipidemia (Acute) GERD (gastroesophageal reflux disease) (Acute) Primary osteoarthritis of hips, bilateral (Acute) Neural hearing loss, bilateral (Acute) Medical History Medical History 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, 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 Pyelonephritis 10/2022, hospitalized Subdural hematoma, post-traumatic 10/2022, fall home, managed w/o surgery Surgical History Surgical History H/O bilateral cataract extraction Family History Family History Mother CAD (coronary artery disease) Congenital heart failure Father Congenital heart failure Social History Social History (Updated 02/26/25 @ 09:20 by Jesi Esteban) Smoking Status: Unknown if ever smoked Second hand tobacco smoke exposure: No Do you dip or chew tobacco?: No Do you vape?: No Living arrangement: At home Marital Status: Living Condition: Alone More Information: 10 children Support Person: Yes Relationship: Child Physical Activity: Running Level: Independent History of Abuse: No ETOH Use: None Frequency: Occasional ETOH Use Details: < 1 drink/week Substance Use: denies use Are you sexually active?: No 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 Service: No POLST Patient has POLST: No Exam Exam Vital Signs: Vital Signs x48h Temp Pulse Resp BP Pulse Ox 03/02/25 00:34 63 16 157/63 H 94 03/02/25 00:04 58 L 17 131/81 H 95 03/01/25 23:49 60 17 128/68 94 03/01/25 23:34 67 18 150/62 H 93 03/01/25 23:04 62 16 144/64 H 95 03/01/25 22:49 61 16 130/75 96 03/01/25 22:34 62 16 150/62 H 96 03/01/25 21:09 78 18 171/67 H 95 03/01/25 20:51 36.1 C L 70 20 171/67 H 94 Constitutional abnormal general appearance (frail appearing), no apparent distress and alert HENMT head/scalp atraumatic and oral mucous membranes normal Eyes PERRL and EOMs intact bilaterally Neck/C-Spine supple and no meningeal signs Respiratory breath sounds equal bilaterally, normal respiratory effort and clear to auscultation bilaterally Cardiovascular normal heart rate noted, regular rhythm noted, no murmur and no edema Gastrointestinal abdomen soft to palpation and nontender to palpation Neurology moderate right facial droop. when she sticks out her tongue there is subtle deviation to the left. Despite multiple attempts to test limb strength (per NIHSS), she does not follow these commands; I suspect this is due to reason other than weakness, as she does move all four limbs at times during these attempts, but varying response and varying ability to maintain each limb outstretched Skin skin color normal Results Vitals Vitals: Vital Signs - 24 hr 03/01/25 20:51 03/01/25 21:09 03/01/25 22:34 Temperature 36.1 C L Temperature Source Temporal Artery Scan Pulse Rate 70 78 62 Respiratory Rate 20 18 16 Blood Pressure 171/67 H 171/67 H 150/62 H O2 Saturation 94 95 96 O2 Source Room air Room air Room air Pain Intensity 0 03/01/25 22:49 03/01/25 23:04 03/01/25 23:34 Temperature Temperature Source Pulse Rate 61 62 67 Respiratory Rate 16 16 18 Blood Pressure 130/75 144/64 H 150/62 H O2 Saturation 96 95 93 O2 Source Room air Room air Room air Pain Intensity 03/01/25 23:49 03/02/25 00:04 03/02/25 00:34 Temperature Temperature Source Pulse Rate 60 58 L 63 Respiratory Rate 17 17 16 Blood Pressure 128/68 131/81 H 157/63 H O2 Saturation 94 95 94 O2 Source Room air Room air Room air Pain Intensity Oxygen O2 Source Room air Labs Labs: Laboratory Tests 03/01/25 20:50 WBC 8.8 RBC 3.88 L Hgb 11.7 L Hct 35.6 L MCV 91.8 MCH 30.2 MCHC 32.9 RDW 12.7 Plt Count 186 MPV 9.5 Neut # (Auto) 6.8 H Lymph # (Auto) 1.1 L [place] # (Auto) 0.7 Eos # (Auto) 0.1 Baso # (Auto) 0.1 Absolute Nucleated RBC 0.00 Nucleated RBC % 0.0 PT 12.2 INR 1.1 APTT 26.6 Sodium 133 L Potassium 4.7 H Chloride 101 Carbon Dioxide 25 Anion Gap 7.0 BUN 19 Creatinine 1.5 H Estimated GFR (MDRD) 33 L Glucose 143 H Calcium 9.1 Rads (name of study) CTH: Relevant Findings:: Prelim report reviewed and See rad report CTA head/neck: Relevant Findings:: Prelim report reviewed and See rad report PD Medical Decision Making ED course Complexity details: reviewed old records, reviewed results, re-evaluated patient, considered differential, d/w patient and d/w family ED course: I reviewed the ED MD note and test results from yesterday's [facility] ED visit. Testing undertaken yesterday includes CBC, ER abdominal panel, troponin, urinalysis, respiratory PCR panel and CTA chest. There were no concerning or diagnostic findings on any of these tests. BNP was also checked and result was mildly elevated. I am unable to complete NIHSS on this patient. Patient has great difficulty following commands; the difficulty hearing and language barrier are possible contributing factors (family has to lean right up to her ear and speak quite loudly, into Tagalog, for patient to hear). Last known normal is over 24 hours PRICE CHECKER. Non-contrast CTH interpreted by radiologist as no acute intracranial pathology. CTA head/neck interpreted by radiologist as "1. 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 2. Mild atherosclerotic disease involving origins of bilateral internal carotid arteries without hemodynamically significant stenosis. 3. No other hemodynamically significant stenosis or aneurysm is seen in the intracranial circulation. 4. 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 No other hemodynamically significant stenosis is seen in rest of the neck arteries." I discussed this case with telestroke services. He reviewed the images; telestroke neurologist recommendation is admit to [facility] for completion of stroke- related protocol (specifically, MRI). He agrees with radiologist's interpretation of CTA head/neck but says this is not LVO and no intervention specific to this finding is indicated (also considering patient is obviously well outside of window for consideration of thrombolytics). I discussed this case with [facility] and they will admit to [facility] hospitalist service Discharge Plan Discharge Patient Disposition: [facility] DC/Xfer Clinical Impression: Cerebrovascular accident (CVA) Interventions: ED Admission Assessment Last Done: 03/02/25 01:00
[2025-03-02 05:50] LABS: HCT - HEMATOCRIT 36.0 % (37.0-47.0); HGB - HEMOGLOBIN 11.6 g/dL (12.0-16.0); MEAN PLATELET VOLUME 10.0 fL (7.9-10.8); NRBC ABSOLUTE COUNT (AUTO) 0.00 x10^3/uL; NUCLEATED RED BLOOD CELLS AUTO 0.0 /100WBC; PLT - PLATELET COUNT 189 10^3/uL (130-450); RED CELL DISTRIBUTION WIDTH 12.6 % (12.0-15.0)
[2025-03-02 06:08] LABS: ALT ALANINE AMINOTRANSFERASE 17.0 IU/L (10-60); AST ASPARTATE AMINOTRANSFERASE 19.0 IU/L (10-42); BUN - BLOOD UREA NITROGEN 20.0 mg/dL (6-20); CARBON DIOXIDE - CO2 25.0 mmol/L (21-32); CREATININE 1.4 mg/dL (0.6-1.3); GFR - MDRD 35.0 (>89)
[2025-03-02 06:25] LABS: CHOL/HDL RATIO 4.0 (<4.4); LDL/HDL RATIO 2.4 (<4.4); VLDL CHOLESTEROL 26 mg/dL
[2025-03-02] MEDS: ASPIRIN CHEW 81 MG TABLET PO SCH (08:27)
[2025-03-02] MEDS: PANTOPRAZOLE 40 MG VIAL IVP SCH (08:28)
[2025-03-02] MEDS: FOSFOMYCIN TROMETHAMINE 3 GM PACKET PO ONE (08:29)
--- NOTE | 2025-03-02 12:03 | PHARMACY PROGRESS NOTE ---
Best Possible Medication History Admit Date and Time: 03/02/25 0050 Home Medications Medication Instructions Recorded Confirmed Type mupirocin 2 % topical ointment 1 applic topical BID 10 days #1 ea 02/26/25 03/02/25 Rx ([facility]) glimepiride 1 mg tablet 1 mg PO DAILY 03/02/2503/02 History pantoprazole 40 mg tablet,delayed 40 mg PO DAILY 03/0203/02/25 History release Processed by: Pharmacy Medications reviewed in ED?: Yes Medication History completed: Yes Patient Interview: Pt unable to participate Secondary Source(s): Other family member and Insurance records [facility] Statement: Note from most recent visit instructed patient to stop taking antihypertensives for further diagnostic workup and labs for referral to manager business planning. As the person ultimately responsible for medication therapy, providers are able to order a medication from an existing home medication list in [facility] via the "Reconcile Routine" prior to Confirmation of that medication by patient support assistant. Such practice is discouraged except when the physician, in their clinical judgment, deems that a medical need exists for a medication without regard to previous use.
[2025-03-02 12:37] LABS: ESTIMATED AVERAGE GLUCOSE 146 mg/dL (70-100); HEMOGLOBIN A1c% 6.7 % (4.27-6.07)
--- NOTE | 2025-03-02 13:00 | PROVIDER PROGRESS NOTE ---
Subjective Prog Note Date Prog Note Date: 03/02/25 Prog Note Time: 12:49 Subjective Pt reports feeling: Improved Subjective: barrier to conversation due to deafness. But she can understand me and responds by pointing to her ears to tell me she can't hear and is deaf. Son in law and daughter in the room. Daughter is main contact since she is the eldest of many children. mom lives in own home and is fiercely independent. doesn't want to live w daughter. patient nods yes and no to my questions. feels better but isn't speaking much they say. so can't decide if she has resolved her slurred speech. but she able to swallow. Current Medications Current Medications Current Medications: Current Medications Generic Name Dose Route Start Last Admin Trade Name Freq PRN Reason Stop Dose Admin Albuterol 2 puffs 03/02/25 00:40 Albuterol 1 Puff INH Q2H PRN sob Aspirin 81 mg 03/02/25 09:00 03/02/25 08:27 Aspirin Chew 81 Mg Tablet PO 81 mg DAILY RENA Administration Benzonatate 100 mg 03/02/25 00:40 Benzonatate 100 Mg Capsule PO TID PRN Cough Sodium Chloride 1,000 mls @ 75 mls/hr 03/02/25 01:00 03/02/25 01:30 Normal Saline 0.9% IV 75 mls/hr .[id number] RENA Administration Melatonin 3 mg 03/02/25 00:40 Melatonin 3 Mg Tablet PO QPM PRN sleep Nitroglycerin 0.4 mg 03/02/25 00:40 Nitroglycerin Sl 0.4 Mg Tablet SL Q5MIN PRN Chest Pain Ondansetron HCl 4 mg 03/02/25 00:40 Ondansetron 4 Mg/2 Ml Vial IVP Q8H PRN Nausea / Vomiting Pantoprazole Sodium 40 mg 03/02/25 09:00 03/02/25 08:28 Pantoprazole 40 Mg Vial IVP 40 mg DAILY RENA Administration Phenol/Menthol 1 sprays 03/02/25 00:40 Phenol Throat [place] 177 Ml MM Q4HR PRN Mouth Sore Pain Objective Vital Signs/Intake & Output Reviewed Vital Signs: Yes Vital Signs: Vital Signs x48h Temp Pulse Resp BP Pulse Ox 03/02/25 12:26 36.5 C 68 20 111/80 98 03/02/25 08:27 36.5 C 66 24 144/65 H 98 03/02/25 05:00 36.4 C L 62 18 153/62 H 98 Intake & Output: Intake & Output 02/27/25 02/28/25 03/01/25 03/02/25 23:59 23:59 23:59 23:59 Output Total 250 / 250 Balance -250 / -250 Weight (kg) 47.5 kg 44.5 kg Objective General Appearance: positive No acute distress and Other (short statured 4'11"m 44.5 kg, elderly female who looks stated age. not cachectic but slender and tiny) Eyes Bilateral: positive PERRL and EOMI ENT: positive Dry mucous membranes (mild) Neck: positive No JVD; negative Stiff neck or Carotid bruit Respiratory: positive Chest non-tender, No respiratory distress and Breath sounds nml Cardiovascular: positive Regular rate & rhythm, No murmur and No gallop Abdomen: positive Non-tender and Nml bowel sounds Skin: positive No rash, Warm and Dry Extremities: positive Non-tender, Full ROM and Nml appearance Neurologic/Psychiatric: positive CN's nml (2-12) (except very deaf but can nod yes or no to questions. NO nystagmus.), Motor nml, Disoriented to time and Other (follows commands. ) Lab Results 03/02/25 05:17 03/02/25 05:17 Other Labs: Lab Results x24hrs 03/02/25 03/02/25 03/01/25 Range/Units 05:17 03:17 20:50 WBC 9.0 8.8 (4.8-10.8) x10^3/uL RBC 3.85 L 3.88 L (4.20-5.40) 10^6/uL Hgb 11.6 L 11.7 L (12.0-16.0) g/dL Hct 36.0 L 35.6 L (37.0-47.0) % MCV 93.5 91.8 (81.0-99.0) fL MCH 30.1 30.2 (27.0-31.0) pg MCHC 32.2 32.9 (32.0-36.0) g/dL RDW 12.6 12.7 (12.0-15.0) % Plt Count 189 186 (130-450) 10^3/uL MPV 10.0 9.5 (7.9-10.8) fL Neut # (Auto) 6.0 6.8 H (1.5-6.6) 10^3/uL Lymph # (Auto) 1.4 L 1.1 L (1.5-3.5) 10^3/uL [place] # (Auto) 1.0 0.7 (0.0-1.0) 10^3/uL Eos # (Auto) 0.5 0.1 (0.0-0.7) 10^3/uL Baso # (Auto) 0.1 0.1 (0.0-0.1) 10^3/uL Absolute Nucleated RBC 0.00 0.00 x10^3/uL Nucleated RBC % 0.0 0.0 /100WBC PT 12.2 (9.9-12.6) secs INR 1.1 (0.8-1.2) APTT 26.6 (24.9-33.3) secs Sodium 138 133 L (135-145) mmol/L Potassium 4.3 4.7 H (3.5-4.5) mmol/L Chloride 105 101 (101-111) mmol/L Carbon Dioxide 25 25 (21-32) mmol/L Anion Gap 8.0 7.0 (6-13) BUN 20 19 (6-20) mg/dL Creatinine 1.4 H 1.5 H (0.6-1.3) mg/dL Estimated GFR (MDRD) 35 L 33 L (>89) Glucose 115 H 143 H (74-104) mg/dL Calcium 9.2 9.1 (8.5-10.3) mg/dL Magnesium 2.3 (1.7-2.3) mg/dL Total Bilirubin 0.8 (0.2-1.0) mg/dL AST 19 (10-42) IU/L ALT 17 (10-60) IU/L Alkaline Phosphatase 58 (42-121) IU/L Total Protein 7.3 (6.4-8.9) g/dL Albumin 3.9 (3.2-5.5) g/dL Globulin 3.4 (2.1-4.2) g/dL Albumin/Globulin Ratio 1.1 (1.0-2.2) Triglycerides 131 mg/dL Cholesterol 161 ( - 200) mg/dL LDL Cholesterol, Calc 95 ( - 129) mg/dL VLDL Cholesterol 26 mg/dL HDL Cholesterol 40 L (60 - ) mg/dL LDL/HDL Ratio 2.4 (<4.4) Cholesterol/HDL Ratio 4.0 (<4.4) TSH 1.70 (0.34-5.60) uIU/mL Urine Color YELLOW Urine Clarity SL. CLOUDY (CLEAR) Urine pH 7.0 (5.0-7.5) PH Ur Specific [place] 1.010 (1.002-1.030) Urine Protein 300 H (NEGATIVE) mg/dL Urine Glucose (UA) NEGATIVE (NEGATIVE) mg/dL Urine Ketones NEGATIVE (NEGATIVE) mg/dL Urine Occult Blood SMALL (NEGATIVE) Urine Nitrite POSITIVE H (NEGATIVE) Urine Bilirubin NEGATIVE (NEGATIVE) Urine Urobilinogen 0.2 (NORMAL) (NORMAL) E.U./dL Ur Leukocyte Esterase MODERATE H (NEGATIVE) Urine RBC 0-5 (0-5) /HPF Urine WBC >25 H (0-5) /HPF Ur Squamous Epith Cells RARE Squamous (<= Few) Urine Bacteria Many H (None Seen) /HPF Ur Microscopic Review INDICATED Urine Culture Comments INDICATED Nasal Influenza B PCR NOT DETECTED Nasal Influenza A PCR NOT DETECTED Nasal RSV (PCR) NOT DETECTED Nasal SARS-CoV-2 (PCR) NOT DETECTED Assessment/Plan Problem List (1) Cerebrovascular accident (CVA): Impression: She presented with slured speech and right facial droop with unknow onset. on CTA: 1. 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 2. Mild atherosclerotic disease involving origins of bilateral internal carotid arteries without hemodynamically significant stenosis. 3. No other hemodynamically significant stenosis or aneurysm is seen in the intracranial circulation. 4. 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 No other hemodynamically significant stenosis is seen in rest of the neck arteries. But CT of head has no acute changes. Her SS of PICA are: * Vertigo and Dizziness:A feeling of spinning or imbalance is common. * Gait Ataxia:Difficulty with balance and coordination while walking. * Dysphagia and Dysarthria:Trouble swallowing and slurred speech, respectively. * Sensory Disturbances:Loss of pain and temperature sensation on one side of the face and the opposite side of the body. Those are improved today. MRI and Echo are done but not read yet. I will review results when available. She is not able to return to home due to dizziness and confusion. I am asking family to decide on SNF for rehab.with plan for dc tomorrow am. I have also ordered PT to eval and treat today. I will continue the ASA, statin. I will also monitor BP (2) Type 2 diabetes mellitus with chronic kidney disease, without long-term current use of insulin: Impression: Her home med is glimeperide. A1c is 6.7% so she is controlled. No dose yesterday or today, and her glucose is 115. I will only check fasting for tomorrow. If elevated beyond 180, I will resume home med. Qualifiers: Chronic kidney disease stage: stage 3 (moderate) Chronic kidney disease stage 3 subtype: stage 3b (GFR 30-44) Qualified Code(s): E11.22 - Type 2 diabetes mellitus with diabetic chronic kidney disease; N18.32 - Chronic kidney disease, stage 3b (3) RACHEL (acute kidney injury): Impression: Mild. Baseline creat is 1.3 and she was 1.5 on admission. Today she is 1.4 Plan is po intake and recheck in am (4) Neural hearing loss, bilateral: Impression: I will have family reassure patient. and speak slowly.
--- NOTE | 2025-03-02 13:38 | MRI Report ---
PROCEDURE: MRI Brain WO INDICATIONS: cva TECHNIQUE: Multiplanar multisequential MR images of the brain were obtained without contrast COMPARISON: CT brain 03/01/2025 FINDINGS: CSF Spaces: Basal cisterns are patent. No extra-axial fluid collections. Ventricles are normal in size and shape. Brain: Restricted diffusion noted in the left hemipons as well as the right occipital cortex. Additional wedge-shaped restricted diffusion present in the right cerebellar hemisphere as well. No hemorrhagic component. No extra-axial fluid collections. Underlying moderate but age-appropriate atrophy and multifocal chronic ischemic changes. Bilateral intraocular lens replacements noted. Skull and face: Calvarium has normal marrow signal. Orbits appear normal. Sinuses: Sinuses and mastoids are clear. IMPRESSION: Subacute cortical infarcts in the right cerebellar and occipital cortex as well as subacute infarct in the left hemipons. Moderate atrophy and white matter chronic ischemic change Reviewed by: Franky Dominguez MD on 03/02/2025 12:37 PM AKMARÍA Approved by: Franky Dominguez MD on 03/02/2025 12:37 PM AKDT Station ID: [id number]
--- NOTE | 2025-03-02 15:34 | PT Plan of Care ---
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 no blurry vision or dizziness reported. unable to fully open R eye. reports intact sensation on R side of face throughout trigeminal distribution. cervical ROM WFL and no report of changes in symptoms with head motion Assessment Assessment Pt is an 89yo F referred for PT eval d/t facial droop and confusion, MRI demonstrates subacute cortical infarcts in the right cerebellar and occipital cortex as well as subacute infarct in the left hemipons. Please see chart for further PMH. Pt lives in [facility] in [facility] which is ADA compliant. Family present in room and report pt is indep at baseline including cooking for herself but has been increasingly forgetful recently. Example of leaving pots heating on stove. Has been ambulatory without AD though family reports 2 recent falls. Pt speaks [place] and Tagalog. Pt cleared for eval by hospitalist . Upon PT eval, met supine in bed on sleeping but easily roused. A&Ox1 and able to follow 90% of cueing in [place], family assists with translation when pt unable to follow complex cues. Pt is agreeable and motivated. Transfers to EOB with modAx1. Poor seated balance with limited trunk control, listing twd L side and requiring modA to maintain balance. Seated CN screen demonstrates intact facial sensation but persistent motor impairments on R side, slight tongue deviation L. Pt able to track visually but has R peripheral field cut. Unable to progress to standing or gait assessment at this time d/t significant fatigue and limited trunk control. Requires maxA to dep assist for transfer back to bed. PT rec nsg use lift for transfers at this time. Given impairments in vision, strength, endurance, and vision, pt will benefit from skilled PT in acute setting to progress upright tolerance and balance. When medically clear, PT rec dc to SNF for further rehab as pt is far below her baseline of indep mobility. Goals Improve bed mobility to: Minimal Assist Improve supine to sit to: Minimal Assist Improve sit to stand to: Minimal Assist Improve pivot transfer ability Minimal Assist to: Improve sit to supine to: Minimal Assist Improve gait ability to: Min A Assistive Device Used: Front Wheeled Walker Improve Sitting Balance to: Good Improve Standing Balance to: Fair PT Plan of Care Frequency 1-2x/day Duration Until discharge Discharge Recommendations Discharge Location Nursing Home Facility Other TBD Transport Needs at Discharge B.L.S Other BLS d/t poor trunk control
--- NOTE | 2025-03-02 17:01 | ECHO Report ---
Version: 1 Study ID: [id number] [id number] Adult Echocardiogram Report Name: REMEDIOS SHEN Study Date: 03/02/2025, 10: 10 AM BP: 144 / 65 mmHg Patient Location: [facility] [place]^220^01 HR: 60 bpm : 1935 (MM/DD/YYYY) Gender: Female Height: 59 in Age: 89 Years Weight: 98.106 lb BSA: 1.36 m² Reason For Study: cva, arrhythmia History: CVA Interpretation Summary Global left ventricular systolic function is normal. The overall diastolic pattern is most consistent with impaired left ventricular relaxation with elevated filling pressures. The right ventricle is normal in size and function. No concerning cardiac valve disease is noted. Injection of agitated saline documented no interatrial shunt The visual left ventricular ejection fraction is estimated at 55 to 60%. Left Ventricle: The left ventricle is normal in size. Proximal septal thickening is noted. Echo findings are not consistent with left ventricular outflow tract obstruction. Global left ventricular systolic function is normal. The visual left ventricular ejection fraction is estimated at 55 to 60%. No regional wall motion abnormalities are present. The overall diastolic pattern is most consistent with impaired left ventricular relaxation with elevated filling pressures. Right Ventricle: The right ventricle is normal in size and function. The tricuspid annular plane systolic excursion (TAPSE) measurement is 2.1 cm. Aortic Valve: The aortic valve is trileaflet. The aortic valve is mildly thickened. Aortic valve sclerosis is present without stenosis. No hemodynamically significant valvular aortic stenosis. No aortic regurgitation is present. Mitral Valve: The mitral valve leaflets appear thickened, but with normal motion. Mild mitral annular calcification is present. No evidence of mitral stenosis is seen. There is trace mitral regurgitation. Tricuspid Valve: The tricuspid valve leaflets are mildly thickened. There is no tricuspid stenosis. Mild tricuspid regurgitation present. Pulmonic Valve: The pulmonic valve is not well seen. Left Atrium: The left atrium is mildly dilated. The left atrial volume indexed to body surface area is 35 ml/m2. This refers to the maximal volume measured prior to mitral valve opening. Right Atrium: Right atrial size is normal. The inferior vena cava is normal in diameter (<2.1cm) and there is complete collapse with inspiration (estimated right atrial pressure 0-5mmHg). Atrial Septum: Lipomatous hypertrophy of the interatrial septum is present. Injection of agitated saline documented no interatrial shunt. Aorta: The ascending aorta is not well seen. The sinuses of Valsalva are not well visualized. Pulmonary Artery: The pulmonary artery systolic pressure, calculated from a peak tricuspid regurgitant velocity in conjunction with an estimated right atrial pressure, is 29- 34mmHg. Pericardium/Pleural Space: There is no pericardial effusion. Left Ventricle ESV(sp4-el): 46.5 ml Right Ventricle TAPSE: 2.08 cm Atria LA dimension: 4.5 cm LAV(MOD-sp4): 44.8 ml LAV(MOD-sp2): 42.2 ml Diastolic Function Pulm A Revs Abdiaziz: 24.3 cm/sec Pulm A Revs Dur: 0.13 sec MV dec time: 0.31 sec MV E max abdiaziz: 84.0 cm/sec MV A max abdiaziz: 118.5 cm/sec Aortic Valve LV V1 mean P.8 mmHg LV V1 mean: 79.3 cm/sec LV V1 VTI: 26.6 cm LV V1 max: 110.3 cm/sec LV V1 max P.9 mmHg Ao max P.8 mmHg Ao V2 max: 139.7 cm/sec Tricuspid Valve TR max P.2 mmHg TR max abdiaziz: 270.3 cm/sec TV max P.2 mmHg MMode/2D Measurements & Calculations BMI: 19.8 kilograms/m² BSA([facility]): 1.36 m² ESV(sp4-el): 46.5 ml LA A4C-A/L: 15.5 cm² LA dimension: 4.5 cm LA ESV-A/L: 40.7 ml LAV(MOD-sp2): 42.2 ml LAV(MOD-sp4): 44.8 ml TAPSE: 2.08 cm Doppler Measurements & Calculations Ao max P.8 mmHg Ao V2 max: 139.7 cm/sec Lat E/e': 14.9 LV V1 max: 110.3 cm/sec LV V1 max P.9 mmHg LV V1 mean: 79.3 cm/sec LV V1 mean P.8 mmHg LV V1 VTI: 26.6 cm Med E/e': 20.3 MV A max abdiaziz: 118.5 cm/sec MV dec time: 0.31 sec MV DVI-pr: 0.71 MV E max abdiaziz: 84.0 cm/sec Pulm A Revs Dur: 0.13 sec Pulm A Revs Abdiaziz: 24.3 cm/sec RAP systole: 5.0 mmHg TR max P.2 mmHg TR max abdiaziz: 270.3 cm/sec TV max P.2 mmHg Other Measurements & Calculations MV E/A: 0.71 RVSP(TR): 34.2 mmHg Procedure Notes: A complete two-dimensional transthoracic echocardiogram was performed (2D, M- mode, Doppler and color flow Doppler). Indication: Evaluate for source of embolism. Agitated saline study was performed. The patient was comfortable and cooperative throughout the procedure. The underlying rhythm was sinus. CPT Codes: [id number]: Transthoracic Echo with Spectral and Color Doppler. MD Irene Short 03/02/2025, 5: 00 PM Ordering Physician: Deniz Sears Referring Physician: Andres Khan Performed By: Janet Brandt RDCS
[2025-03-02] MEDS: ACETAMINOPHEN 325 MG TABLET PO PRN (18:22)
[2025-03-03] MEDS: PANTOPRAZOLE 40 MG TABLET PO SCH (08:35)
[2025-03-03] MEDS: ATORVASTATIN 40 MG TABLET PO ONE (08:35)
--- NOTE | 2025-03-03 16:14 | PROVIDER PROGRESS NOTE ---
Subjective Prog Note Date Prog Note Date: 03/03/25 Prog Note Time: 16:13 Subjective Pt reports feeling: Improved Subjective: She has definitely improved. She now has 3 daughters in the room as well as her son-in-law. Lots of chit chat. They all concur that mom really should be living in a safer environment or at least a more monitored environment but the patient is refusing to do so. They will have to address that issue when she is done with his acute episode of care. Patient is awake, alert. Smiling. I watched her brush her own teeth, and use a glass of water to rinse out her mouth and spit into a basin. She is swallowing fine. She denies chest pain, palpitations. She feels like she is back to normal. This is a remarkable change from yesterday when she was still lethargic and barely able to respond to us. I did inform the family of the MRI results Current Medications Current Medications Current Medications: Current Medications Generic Name Dose Route Start Last Admin Trade Name Freq PRN Reason Stop Dose Admin Acetaminophen 650 mg 03/02/25 17:07 03/03/25 08:35 Acetaminophen 325 Mg Tablet PO 650 mg Q4HR PRN Administration Pain or Fever > 38C (100.4F) Albuterol 2 puffs 03/02/25 00:40 Albuterol 1 Puff INH Q2H PRN sob Amlodipine Besylate 5 mg 03/03/25 09:00 03/03/25 08:36 Amlodipine 5 Mg Tablet PO 5 mg DAILY RENA Administration Aspirin 81 mg 03/02/25 09:00 03/03/25 08:36 Aspirin Chew 81 Mg Tablet PO 81 mg DAILY RENA Administration Benzonatate 100 mg 03/02/25 00:40 Benzonatate 100 Mg Capsule PO TID PRN Cough Sodium Chloride 1,000 mls @ 75 mls/hr 03/02/25 01:00 03/03/25 04:20 Normal Saline 0.9% IV 75 mls/hr .[id number] RENA Administration Melatonin 3 mg 03/02/25 00:40 Melatonin 3 Mg Tablet PO QPM PRN sleep Nitroglycerin 0.4 mg 03/02/25 00:40 Nitroglycerin Sl 0.4 Mg Tablet SL Q5MIN PRN Chest Pain Ondansetron HCl 4 mg 03/02/25 00:40 Ondansetron 4 Mg/2 Ml Vial IVP Q8H PRN Nausea / Vomiting Pantoprazole Sodium 40 mg 03/03/25 08:30 03/03/25 08:35 Pantoprazole 40 Mg Tablet PO 40 mg QDAC RENA Administration Phenol/Menthol 1 sprays 03/02/25 00:40 Phenol Throat [place] 177 Ml MM Q4HR PRN Mouth Sore Pain Polyethylene Glycol 17 gm 03/03/25 09:00 03/03/25 08:36 Polyethylene Glycol 3350 17 Gm Packet PO 17 gm DAILY RENA Administration Objective Vital Signs/Intake & Output Reviewed Vital Signs: Yes Vital Signs: Vital Signs x48h Temp Pulse Resp BP Pulse Ox 03/03/25 13:25 36.6 C 73 18 144/59 H 98 03/03/25 08:55 36.5 C 72 18 168/75 H 98 Intake & Output: Intake & Output 02/28/25 03/01/25 03/02/25 03/03/25 23:59 23:59 23:59 23:59 Intake Total 1420 / 1420 1510 / 1510 Output Total 350 / 350 475 / 475 Balance 1070 / 1070 1035 / 1035 Weight (kg) 47.5 kg 44.5 kg Objective General Appearance: positive No acute distress and Alert Eyes Bilateral: positive PERRL and EOMI ENT: positive Other (Right facial droop. Unable to lift right eyebrow unable to squint and close her eyes for the right.) Neck: positive No JVD; negative Stiff neck or Carotid bruit Respiratory: positive Chest non-tender, No respiratory distress and Breath sounds nml Cardiovascular: positive Regular rate & rhythm, No murmur and No gallop Abdomen: positive Non-tender, No organomegaly and Nml bowel sounds Skin: positive No rash, Warm and Dry Extremities: positive Non-tender, Full ROM and No pedal edema Neurologic/Psychiatric: positive Oriented x3; negative Motor nml (Right facial droop. Speech garbled. 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 She is able to move both legs off the bed.) Lab Results 03/02/25 05:17 03/02/25 05:17 Diagnostic Imaging Diagnostic Imaging Results: positive Final report reviewed Diagnostic Imaging Comments: MRI Brain CSF Spaces: Basal cisterns are patent. No extra-axial fluid collections. Ventricles are normal in size and shape. Brain: Restricted diffusion noted in the left hemipons as well as the right occipital cortex. Additional wedge-shaped restricted diffusion present in the right cerebellar hemisphere as well. No hemorrhagic component. No extra-axial fluid collections. Underlying moderate but age-appropriate atrophy and multifocal chronic ischemic changes. Bilateral intraocular lens replacements noted. Skull and face: Calvarium has normal marrow signal. Orbits appear normal. Sinuses: Sinuses and mastoids are clear. IMPRESSION: Subacute cortical infarcts in the right cerebellar and occipital cortex as well as subacute infarct in the left hemipons. Moderate atrophy and white matter chronic ischemic change Assessment/Plan Problem List (1) Cerebrovascular accident (CVA): Impression: Her physical exam is very subtle. CT of the head was negative. She seemed to have some cerebellar findings but today's MRI shows that it is left hemipons as well as right occipital cortex. She has changes in the right cerebellar hemisphere as well. Family has made their decision. They would like her to go to [facility]. It was a choice between [facility] or [place]. In [facility] has accepted the patient. Assess the patient will be discharged to [facility] tomorrow. I have started a statin. I have added a blood pressure drug since it is now time to start controlling her blood pressure. I have also added Plavix. I have explained to the family that I like her on Plavix and aspirin for the next 21 days. And then stop the Plavix at that time. After rehab she will most likely return to her apartment. Family would like to support her in that decision for as long as possible and they will be taking turns caregiving. When it is not practical for her to be in her apartment, they plan on moving her to the [facility] to be near family. Qualifiers: CVA mechanism: occlusion Precerebral and cerebral artery: middle cerebral artery Laterality of affected vessel: left Qualified Code(s): I63.512 - Cerebral infarction due to unspecified occlusion or stenosis of left middle cerebral artery (2) Type 2 diabetes mellitus with chronic kidney disease, without long-term current use of insulin: Impression: In the outpatient setting she was on glimepiride 1 mg daily. I have not had her on any insulin management here. Her glucose was 206 on the first morning. 143 on the 18th. 115 on the 19th. A1c is 6.7%. In the outpatient setting she may need to resume her glimepiride but I will write orders to the effect that she needs daily fasting glucose while at the senior care facility. Qualifiers: Chronic kidney disease stage: stage 3 (moderate) Chronic kidney disease stage 3 subtype: stage 3b (GFR 30-44) Qualified Code(s): E11.22 - Type 2 diabetes mellitus with diabetic chronic kidney disease; N18.32 - Chronic kidney disease, stage 3b (3) RACHEL (acute kidney injury): Impression: Lowest creatinine she has is 1.2. She is currently at 1.4 as of yesterday. I will check labs tomorrow. Right now she is eating and drinking. She is consuming 75% of her food. And oral intake is about 500 cc a day. I see if I can encourage her to drink 750 cc a day. I will stop her maintenance normal saline drip. (4) Neural hearing loss, bilateral: Impression: Presents as a barrier to her care. But with family in the room and speaking think she is much better today. Yesterday was difficult to communicate. (5) Hypertension: Impression: This morning's blood pressure was 175/69. I added amlodipine and as of this dictation she is 144/59. I will change her over to losartan or lisinopril tomorrow morning since she is a diabetic and that might be more appropriate for her Qualifiers: Hypertension type: primary hypertension Qualified Code(s): I10 - Essential (primary) hypertension
[2025-03-03] MEDS: CLOPIDOGREL 75 MG TABLET PO SCH (17:05)
--- NOTE | 2025-03-04 08:37 | Discharge Summary ---
"Discharge Summary Admit Date: 03/02/25 Discharge Date: 03/04/25 Discharging Provider: Virgie Philippe MD Code Status: Attempt Resuscitation Discharge Facility Name: [facility] DIAGNOSES Discharge Diagnoses with Status of Each Condition: 1. Stroke 2. Type 2 diabetes mellitus with chronic kidney disease without long-term use of insulin 3. Acute kidney injury resolved 4. Hypertension 5. Neural hearing loss, bilateral 6. E. coli UTI HPI History of Present Illness: pt was seen earlier in last 24 h d/t concerns for sob, and w/u was overall ok and pt was discharged home from ED. around 8pm, pt developed slurred speech + R sided facial droop with h/o similar symptoms in the past. no falls. no extremity weakness. no chest pain, fevers, chills reported. no further sob. pt had w/u in ed including tele-neurology consultation who advises observation stay + mri. 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 CONSULTS | PROCEDURES Consultations: Telestroke neurology Procedures: Admission chest x-ray with mild cardiomegaly and no gross pulmonary infiltrate. Chest/thorax CT angiogram does not have PEs. No consolidation no pleural effusion no pneumothorax no nodules. Heart size normal. Upper abdomen unremarkable. CT of the head has no acute intracranial pathology, but she does have age- related volume loss and mild to moderate white matter disease. CT angiogram of the head and neck has occlusion or high-grade stenosis involving the distal right vertebral artery at C3 with nonvisualization of the distal intracranial portion of the right vertebral artery. Mild atherosclerotic disease involving the origins of bilateral internal carotid arteries without hemodynamically significant stenosis. No other hemodynamically significant stenosis or aneurysm seen in the intracranial circulation. MRI of the head has subacute cortical infarcts in the right cerebellar and occipital cortex as well as subacute infarct in the left Colt gene. Moderate atrophy and white matter chronic ischemic changes. Echocardiogram has global left ventricular systolic function that was normal. Overall diastolic pattern most consistent with impaired left ventricular laxation with elevated filling pressures. Right ventricle is normal in size and function. No concerning cardiac valve disease is noted. Injection of agitated saline documented no anterior atrial shunt. The visual left ventricular ejection fraction is estimated at 55 to 60%. HOSPITAL COURSE Hospital Course: (1) Cerebrovascular accident (CVA): Impression: Her physical exam is very subtle. CT of the head was negative. CTA had occlusion of right vertebral. She seemed to have some cerebellar findings with MRI showing that it is left hemipons as well as right occipital cortex. She has changes in the right cerebellar hemisphere as well. When she initially presented there was lethargy, and profound deafness contributed to difficulty communicating with her. She also had a UTI with E. coli. She that was treated with fosfomycin. By the next morning she improved and we were able to do an MRI which confirmed the stroke. PT saw the patient and is recommending SNF. Family made their decision. They would like her to go to [facility]. It was a choice between [facility] or [place]. I have started a statin. I have added a blood pressure drug since it is now time to start controlling her blood pressure. I have also added Plavix. I have explained to the family that I like her on Plavix and aspirin for the next 21 days. And then stop the Plavix at that time. After rehab she will most likely return to her apartment. Family would like to support her in that decision for as long as possible and they will be taking turns caregiving. When it is not practical for her to be in her apartment, they plan on moving her to the [facility] to be near family. Qualifiers: CVA mechanism: occlusion Precerebral and cerebral artery: middle cerebral artery Laterality of affected vessel: left Qualified Code(s): I63.512 - Cerebral infarction due to unspecified occlusion or stenosis of left middle cerebral artery (2) Type 2 diabetes mellitus with chronic kidney disease, without long-term current use of insulin: Impression: In the outpatient setting she was on glimepiride 1 mg daily. I have not had her on any insulin management here. Her glucose was 206 on the first morning. 143 on the 18th. 115 on the 19th. A1c is 6.7%. In the outpatient setting she may need to resume her glimepiride but I will write orders to the effect that she needs daily fasting glucose while at the [facility] facility. They will need to assess when she should resume her glimeperide without risk of hypoglycemia. Qualifiers: Chronic kidney disease stage: stage 3 (moderate) Chronic kidney disease stage 3 subtype: stage 3b (GFR 30-44) Qualified Code(s): E11.22 - Type 2 diabetes mellitus with diabetic chronic kidney disease; N18.32 - Chronic kidney disease, stage 3b (3) RACHEL (acute kidney injury): Impression: Lowest creatinine she has is 1.2. She is currently at 1.4 . Right now she is eating and drinking. She is consuming 75% of her food. And oral intake is about 500 cc a day. I see if I can encourage her to drink 750 cc a day. She was on a maintenance normal saline drip until the . But she was able to take p.o. that was stopped. (4) Neural hearing loss, bilateral: Impression: Presents as a barrier to her care. But with family in the room and speaking think she is much better today. When she first presented, she was confused, slightly sleepy, and it was a barrier to communication. When she was more alert, communication was much better. She is bilingual. However preferred to speak Tagalog when she was acutely altered (5) Hypertension: Impression: This morning's blood pressure was 167/76. I added amlodipine but I changed her over to lisinopril at discharge since she is a diabetic and that might be more appropriate for her Qualifiers: Hypertension type: primary hypertension Qualified Code(s): I10 - Essential (primary) hypertension She is discharged in stable condition. She is a tiny, slender [place] female who looks her stated age of 89. She is 4 foot 11 inches tall, 44.5 kg. Blood pressure is 167/76. Pulse 77. Respirations 18. Temp 36.8. She is 98% saturated on room air. She is alert, smiling. This oriented to time and is forgetful but she knows who people in the room are, knows that she is in the hospital. She is following commands. Speech is garbled, difficult to understand for me. But her family seems to be doing well. She has some right eyelid drooping. Slight right nasolabial fold changes. She is very hard of hearing and has a hearing aid. She is missing teeth and has upper and lower dentures. Oral mucosa is pink and moist. Neck is supple without bruits. Lungs are clear to auscultation and percussion. Regular rate and rhythm. She has skin changes of Makeda rash underneath her left breast but no open skin. Abdomen is soft, nontender with normal bowel sounds and her last bowel movement was noted to be February 27. She is incontinent of urine and is using a pure wick. Extremities are thin. She is an assist for toileting, oral care, bathing dressing and grooming but if prompted can almost accomplish this on her own. Greater than 30 minutes spent in coordinating discharge This document was made in part using voice recognition software. While efforts are made to proofread this document, sound alike and grammatical errors may occur. ALLERGIES Allergies Allergy/AdvReac Type Severity Reaction Status Date / Time hydrocodone (From Vicodin) Allergy Severe Emesis Verified 02/28/25 08:50 penicillin V Allergy Severe Itching Verified 02/28/25 08:50 propranolol AdvReac Mild Nausea Verified 02/28/25 08:50 MEDICATIONS Ambulatory Orders Medication Instructions Recorded Confirmed acetaminophen 325 mg tablet 650 mg (2 x 325 mg) PO Q4H R PRN 03/03/25 Pain Or Fever > 38c (100.4f) #30 tabs albuterol sulfate 90 mcg/actuation 2 puff inhalation Q 2H PRN sob #6.7 03/03/25 aerosol inhaler (Ventolin HFA) grams aspirin 81 mg chewable tablet 81 mg PO DAILY #30 tabs 03/03/25 (Children's Aspirin) clopidogrel 75 mg tablet 75 mg PO DAILY #20 tabs 02/13 lisinopril 5 mg tablet 5 mg PO DAILY #30 tabs 03/03 melatonin 3 mg tablet 3 mg PO QPM PRN sleep #30 ta bs 03/03/25 pantoprazole 40 mg tablet,delayed 40 mg PO DAILY #30 t abs 03/03/25 release PHYSICAL EXAM AT DISCHARGE Vital Signs: Vital Signs x48h Temp Pulse Resp BP Pulse Ox 03/04/25 07:55 36.6 C 77 18 167/76 H 98 03/04/25 06:17 80 151/82 H 03/04/25 03:56 37.2 C 84 20 161/90 H 99 LABS 03/02/25 05:17 03/02/25 05:17 Discharge Plan Discharge Patient Disposition: DC/Xfer Condition: Stable Medically Cleared Date:: 03/03/25 Prescriptions: New acetaminophen 325 mg Tablet 650 mg PO Q4HR PRN (Reason: Pain Or Fever > 38c (100.4f)) Qty: 30 0RF aspirin [Children's Aspirin] 81 mg Tablet,Chewable 81 mg PO DAILY Qty: 30 0RF clopidogrel 75 mg Tablet 75 mg PO DAILY Qty: 20 0RF Rx Instructions: stop after 21 days which would be 03/25/25 albuterol sulfate [Ventolin HFA] 90 mcg/actuation Hfa Aerosol Inhaler 2 puff inhalation Q2H PRN (Reason: sob) Qty: 6.7 0RF melatonin 3 mg Tablet 3 mg PO QPM PRN (Reason: sleep) Qty: 30 0RF lisinopril 5 mg tablet 5 mg PO DAILY Qty: 30 2RF Continued pantoprazole 40 mg tablet,delayed release (DR/EC) 40 mg PO DAILY Qty: 30 0RF Discontinued glimepiride 1 mg tablet 1 mg PO DAILY Patient Comments: TAKE 1 TABLET BY MOUTH EVERY DAY mupirocin [Centany] 2 % ointment 1 applic topical BID 10 Days Qty: 1 0RF Diet: Diabetic Health Concerns: This yoni elderly female lives alone. She has 10 children. They live between the [facility] and the [facility]. Several of her children live nearby. She is a fiercely independent female who does not want any of her children living with her nor does she want to live with them. She has a past medical history of intermittent shortness of breath diagnosed as asthma. Eczema, type 2 diabetes mellitus on glimepiride, hypertensive heart disease not on medication, mixed hyperlipidemia, GERD, osteoarthritis of the hips, and moderate to severe deafness. She also has eczema. She presented to the emergency room on March 01 with shortness of breath and was discharged home since nothing was found. She then returned to the ER on March 02 because of slurred speech, right sided facial droop. In the ER CT of the head was negative. 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 Patient did not describe dizziness. She was lethargic and slow to respond. She was also identified as having UTI and given 1 dose of fosfomycin. Urine culture did grow out E. coli. The patient was placed in observation status. Workup continued for her stroke and that included an echo as well as MRI. The MRI showed her to have lesions in both hemispheres. Echocardiogram did not have an intra-atrial shunt identified. Ejection fraction 55 to 60%. Global function was normal. Slightly impaired left ventricular relaxation with elevated filling pressures. No significant aortic valve disease, mitral valve disease, tricuspid valve. As such she has been started on Plavix, aspirin. And a statin. The Plavix and aspirin are to continue for 21 days and then she is to come off the Plavix on her approximately March 25. Her admission medications were very simple. She was on acetaminophen, albuterol, glimepiride 1 mg, pantoprazole 40 mg and mupirocin topical cream. At discharge I am stopping the glimepiride since her A1c was 6.7%. While in the hospital her glucose, untreated, was 143 and 115. I have started her on lisinopril 5 mg a day for hypertension. Goal is for her to go to rehab to improve mobility and strength. Plan is for her to return to her home after rehab where her children will take care of her there. She is a full code Print Language: Emiliano Stand Alone Forms: SNF Discharge Follow-up Care: Kinsey Onofre ARNP [Primary Care Provider, Family Practice]"
[2025-03-04] MEDS: DOCUSATE SODIUM 250 MG CAPSULE PO SCH (08:47)
[2025-03-04 12:07] VITALS: BP 162/75; TEMP 97.7; O2SAT 99
--- NOTE | 2025-03-04 17:53 | Discharge Summary ---
Discharge Summary ALLERGIES Allergies Allergy/AdvReac Type Severity Reaction Status Date / Time hydrocodone (From Vicodin) Allergy Severe Emesis Verified 02/28/25 08:50 penicillin V Allergy Severe Itching Verified 02/28/25 08:50 propranolol AdvReac Mild Nausea Verified 02/28/25 08:50 MEDICATIONS Ambulatory Orders Medication Instructions Recorded Confirmed acetaminophen 325 mg tablet 650 mg (2 x 325 mg) PO Q4H R PRN 03/03/25 Pain Or Fever > 38c (100.4f) #30 tabs albuterol sulfate 90 mcg/actuation 2 puff inhalation Q 2H PRN sob #6.7 03/03/25 aerosol inhaler (Ventolin HFA) grams aspirin 81 mg chewable tablet 81 mg PO DAILY #30 tabs 03/03/25 (Children's Aspirin) clopidogrel 75 mg tablet 75 mg PO DAILY #20 tabs 02/13 lisinopril 5 mg tablet 5 mg PO DAILY #30 tabs 03/03 melatonin 3 mg tablet 3 mg PO QPM PRN sleep #30 ta bs 03/03/25 pantoprazole 40 mg tablet,delayed 40 mg PO DAILY #30 t abs 03/03/25 release PHYSICAL EXAM AT DISCHARGE Vital Signs: Vital Signs x48h Temp Pulse Resp BP Pulse Ox 03/04/25 11:50 36.5 C 83 18 162/75 H 99 LABS 03/02/25 05:17 03/02/25 05:17 Discharge Plan Discharge Patient Disposition: 03 [facility] DC/Xfer Condition: Stable Medically Cleared Date:: 03/03/25 Prescriptions: New acetaminophen 325 mg Tablet 650 mg PO Q4HR PRN (Reason: Pain Or Fever > 38c (100.4f)) Qty: 30 0RF aspirin [Children's Aspirin] 81 mg Tablet,Chewable 81 mg PO DAILY Qty: 30 0RF clopidogrel 75 mg Tablet 75 mg PO DAILY Qty: 20 0RF Rx Instructions: stop after 21 days which would be 03/25/25 albuterol sulfate [Ventolin HFA] 90 mcg/actuation Hfa Aerosol Inhaler 2 puff inhalation Q2H PRN (Reason: sob) Qty: 6.7 0RF melatonin 3 mg Tablet 3 mg PO QPM PRN (Reason: sleep) Qty: 30 0RF lisinopril 5 mg tablet 5 mg PO DAILY Qty: 30 2RF Continued pantoprazole 40 mg tablet,delayed release (DR/EC) 40 mg PO DAILY Qty: 30 0RF Discontinued glimepiride 1 mg tablet 1 mg PO DAILY Patient Comments: TAKE 1 TABLET BY MOUTH EVERY DAY mupirocin [Centany] 2 % ointment 1 applic topical BID 10 Days Qty: 1 0RF Diet: Diabetic Interventions: Belongings Inventory Last Done: 03/02/25 05:18 Health Concerns: This yoni elderly female lives alone. She has 10 children. They live between the [facility] and the [facility]. Several of her children live nearby. She is a fiercely independent female who does not want any of her children living with her nor does she want to live with them. She has a past medical history of intermittent shortness of breath diagnosed as asthma. Eczema, type 2 diabetes mellitus on glimepiride, hypertensive heart disease not on medication, mixed hyperlipidemia, GERD, osteoarthritis of the hips, and moderate to severe deafness. She also has eczema. She presented to the emergency room on March 01 with shortness of breath and was discharged home since nothing was found. She then returned to the ER on March 02 because of slurred speech, right sided facial droop. In the ER CT of the head was negative. 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 Patient did not describe dizziness. She was lethargic and slow to respond. She was also identified as having UTI and given 1 dose of fosfomycin. Urine culture did grow out E. coli. The patient was placed in observation status. Workup continued for her stroke and that included an echo as well as MRI. The MRI showed her to have lesions in both hemispheres. Echocardiogram did not have an intra-atrial shunt identified. Ejection fraction 55 to 60%. Global function was normal. Slightly impaired left ventricular relaxation with elevated filling pressures. No significant aortic valve disease, mitral valve disease, tricuspid valve. As such she has been started on Plavix, aspirin. And a statin. The Plavix and aspirin are to continue for 21 days and then she is to come off the Plavix on her approximately March 25. Her admission medications were very simple. She was on acetaminophen, albuterol, glimepiride 1 mg, pantoprazole 40 mg and mupirocin topical cream. At discharge I am stopping the glimepiride since her A1c was 6.7%. While in the hospital her glucose, untreated, was 143 and 115. I have started her on lisinopril 5 mg a day for hypertension. Goal is for her to go to rehab to improve mobility and strength. Plan is for her to return to her home after rehab where her children will take care of her there. She is a full code Print Language: [employer] Stand Alone Forms: SNF Discharge Follow-up Care: Kinsey Onofre ARNP [Primary Care Provider, Family Practice] Report called to and time (if no answer, doc. time of each call attempted): Kristi menjivar [id number] Vitals documented within 30 minutes of discharge?: Yes
== END 2025-03-04 12:07 ==
LOC: MS2 20:33 → ED 20:33 → MS2 03-02 01:15
PROVIDERS: ADMIT Student in an Organized Health Care Education/Training Program; ATTEND Student in an Organized Health Care Education/Training Program
DX: I13.0 Hypertensive heart and chronic kidney disease with heart failure and stage 1 through stage 4 chronic kidney disease, or unspecified chronic kidney disease; L30.9 Dermatitis, unspecified; N39.0 Urinary tract infection, site not specified; K21.9 Gastro-esophageal reflux disease without esophagitis; H90.3 Sensorineural hearing loss, bilateral; M16.0 Bilateral primary osteoarthritis of hip; R29.810 Facial weakness; R13.10 Dysphagia, unspecified; B37.2 Candidiasis of skin and nail; R79.89 Other specified abnormal findings of blood chemistry; Z79.02 Long term (current) use of antithrombotics/antiplatelets; J45.909 Unspecified asthma, uncomplicated; R47.1 Dysarthria and anarthria; Z11.52 Encounter for screening for COVID-19; I08.2 Rheumatic disorders of both aortic and tricuspid valves; E78.2 Mixed hyperlipidemia; Z79.82 Long term (current) use of aspirin; Z79.899 Other long term (current) drug therapy; B96.20 Unspecified Escherichia coli [E. coli] as the cause of diseases classified elsewhere; R23.8 Other skin changes; I65.01 Occlusion and stenosis of right vertebral artery; R47.81 Slurred speech; N17.9 Acute kidney failure, unspecified; N18.32 Chronic kidney disease, stage 3b; E11.22 Type 2 diabetes mellitus with diabetic chronic kidney disease; R47.02 Dysphasia; E11.65 Type 2 diabetes mellitus with hyperglycemia; I63.512 Cerebral infarction due to unspecified occlusion or stenosis of left middle cerebral artery; R06.02 Shortness of breath